=== PATIENT | male | born 1945 | race Caucasian/White ===

== ENCOUNTER → 2020-05-15 13:09 | Outpatient (BNVA) | payer MEDICARE, SELFPAY | PROVIDERS: PCP Internal Medicine; Referring Provider Internal Medicine; Visit Provider Internal Medicine Cardiovascular Disease | DX: I48.0 Paroxysmal atrial fibrillation (principal); I25.10 Atherosclerotic heart disease of native coronary artery without angina pectoris; E78.5 Hyperlipidemia, unspecified; Z79.01 Long term (current) use of anticoagulants; Z79.899 Other long term (current) drug therapy | CPT/HCPCS: 93005; 99212 ==

== ENCOUNTER → 2020-05-22 14:46 | Outpatient (BNVA) | payer MEDICARE, SELFPAY | PROVIDERS: PCP Internal Medicine; Referring Provider Internal Medicine; Visit Provider Internal Medicine Cardiovascular Disease | DX: Z03.89 Encounter for observation for other suspected diseases and conditions ruled out (principal) | CPT/HCPCS: 99211 ==

== ENCOUNTER 2020-07-24 09:39 | Outpatient (REF) | payer MEDICARE, SELFPAY ==
[2020-07-24 10:13] LABS: MANUAL DIFF FLAG NO
[2020-07-24 10:28] LABS: Basophils Percent Auto 0.4 % (0-2); Eosinophils Absolute Auto 0.1 X10*3/uL (0.0-0.4); Eosinophils Percent Auto 1.8 % (0-4); Hematocrit 39.2 % (42-52); Hemoglobin 13.2 g/dl (14.0-18.0); Imm Gran Abs Auto 0.01 X10*3/uL (0.00-0.03); Imm Gran Pct Auto 0.2 % (0.0-0.4); Lymphocytes Absolute Auto 1.4 X10*3/uL (1.2-4.9); Lymphocytes Percent Auto 28.5 % (20-40); Mean Corpuscular HGB Conc 33.7 g/dl (31.0-36.0); Mean Corpuscular Hemoglobin 31.2 pg (27.0-33.0); Mean Corpuscular Volume 92.7 fL (80-98); Mean Platelet Volume 10.9 fL (9.4-12.4); Monocytes Absolute Auto 0.5 X10*3/uL (0.1-1.2); Monocytes Percent Auto 10.8 % (2-11); Neutrophils Absolute Auto 2.9 X10*3/uL (2.0-8.3); Neutrophils Percent Auto 58.3 % (45-73); Platelet Count 182 X10*3/uL (160-400); Red Blood Count 4.23 X10*6/uL (4.60-5.80); Red Cell Distribution Width 11.6 % (11.0-16.0)
[2020-07-24 10:45] LABS: Alanine Aminotransferase 21 U/L (0-40); Albumin Level 4.1 g/dL (3.5-5.0); Alkaline Phosphatase 74 U/L (39-117); Anion Gap 12 (12-20); Aspartate Amino Transferase 20 U/L (5-37); Bilirubin Total 0.5 mg/dL (0.0-1.0); Blood Urea Nitrogen 17 mg/dL (9-16); Calcium 8.9 mg/dL (8.4-10.2); Carbon Dioxide 30 mmol/L (22-29); Chloride 103 mmol/L (96-108); Cholesterol 162 mg/dL; Estimated Glomerular Filt Rate > 60; Glucose Fasting 86 mg/dL (60-99); Glucose Urine UA NEG (NEG); HDL Cholesterol 66 mg/dL; LDL Cholesterol Calculated 85 mg/dl; Leukocyte Esterase Urine NEG (NEG); Nitrite Urine NEG (NEG); Potassium 4.2 mmol/L (3.3-5.1); Sodium 141 mmol/L (135-145); Specific Gravity - Urine >= 1.030 (1.005-1.025); Total Protein 6.9 g/dL (6.5-8.0); Triglycerides 58 mg/dL; Urine Blood NEG (NEG); Urine Ketones NEG (NEG); Urine Protein NEG (NEG-TRACE)
[2020-07-24 10:48] LABS: Appearance Urine CLEAR; Color Urine YELLOW
[2020-07-24 11:06] LABS: Prostate Specific Antigen 2.24 ng/mL (<0.05-4.0)
[2020-07-24 12:06] LABS: Reflex LDLD? No
== END 2020-07-24 09:40 | disposition home or self-care (01) ==
LOC: HO.LAB 09:39
PROVIDERS: PCP Internal Medicine; Visit Provider Internal Medicine
DX: Z00.00 Encounter for general adult medical examination without abnormal findings (principal); N40.0 Benign prostatic hyperplasia without lower urinary tract symptoms; I10 Essential (primary) hypertension; D64.9 Anemia, unspecified; D70.9 Neutropenia, unspecified; Z86.79 Personal history of other diseases of the circulatory system; Z12.5 Encounter for screening for malignant neoplasm of prostate
CPT/HCPCS: 36415; 80053; 80061; 81003; 84153; 85025

== ENCOUNTER 2020-09-12 08:30 | Emergency (ER) | payer MEDICARE, SELFPAY ==
--- NOTE | ~2020-09-12 | XR_ITS ---
EXAMINATION: XR KNEE, LEFT CLINICAL INFORMATION: Left knee pain. COMPARISON: None TECHNIQUE: Four views of the left knee. FINDINGS: There is orthopedic hardware in the tibia extending beyond the inferior field of view. Hardware is intact. There is no fracture or dislocation or destructive process. No definite suprapatellar effusion. Hoffa's fat pad appears normal. There is extensive chondrocalcinosis involving the medial lateral menisci. No focal joint narrowing or erosive change. XR/XR knee LT 4V IMPRESSION: 1. No fracture, dislocation, or effusion. 2. Chondrocalcinosis medial and lateral menisci. No erosive changes.
[2020-09-12 08:33] VITALS: BP 104/83; PULSE 82; RESP 16; TEMP 36.6; O2SAT 99; BMI 21.6
--- NOTE | 2020-09-12 08:58 | ED.LOWEXIN ---
HPI - Extremity Injury (Lower) General Chief Complaint: Extremity Injury, Lower Stated Complaint: lt knee pain Time Seen by Provider: 09/12/20 08:52 Source: patient Mode of arrival: other (crutches) Limitations: no limitations History of Present Illness HPI Narrative: 74 y/o male with history of paroxysmal afib on Eliquis, HTN, CAD, HLD who presents with 5 days of non-traumatic left knee pain. He reports 5 days ago he started with some inner left knee pain. Cannot recall injury, twisting or giving out episodes. He was able to go up and down a ladder the next day. The following 3 days the pain has gotten worse. He noted some mild swelling on the inside with tenderness to touch. He has been taking Tylenol and using ice with brief improvement. He called his Orthopedist who can see him in 2 days. He has been using crutches because the pain is too severe to walk so he came into the ER for further evaluation. MD complaint: knee injury Type of Injury: unknown Place: home Severity: moderate Relieving factors: cold therapy, immobilization and rest Exacerbating factors: weight bearing, movement and palpation Associated symptoms: swelling and unable to bear weight Other symptoms: none Related Data Home Medications Medication Instructions Recorded Confirmed pravastatin 20 mg tablet 20 mg PO DAILY tab 05/15/20 05/15/20 Previous Rx's Medication Instructions Recorded metoprolol succinate 50 mg 50 mg PO DAILY 90 Days #90 tab 05/07/20 tablet,extended release 24 hr amlodipine 5 mg tablet 5 mg PO DAILY #30 tab 07/05/20 apixaban 5 mg tablet 5 mg PO BID #60 tab 07/05/20 tramadol 50 mg PO Q8H PRN #6 tab 09/12/20 Allergies Allergy/AdvReac Type Severity Reaction Status Date / Time penicillin V Allergy Unknown Unknown Verified 09/12/20 08:36 Penicillins [PENICILLINS] Allergy Unknown UNKNOWN Verified 09/12/20 08:36 Review of Systems Review of Systems: Constitutional: No Fever, No Chills Musculoskeletal: + joint pain, No Myalgias Skin: No Skin Lesions, No rash Neuro: No Weakness, No Numbness Heme/Lymph: No Bruising, No Lymphadenopathy PMFSH Past Medical History Attestation statement: The following information was validated with the patient. Medical History CAD (coronary artery disease) Hyperlipidemia Paroxysmal atrial fibrillation Surgical History Status post percutaneous transluminal coronary angioplasty Social History Social History Advance Directives: No Advance Directives Information Provided: No Physical Exam Vital Signs: Vital Signs: Last Vital Signs Temp 97.9 F 09/12/20 08:33 Pulse 82 09/12/20 08:33 Resp 16 09/12/20 08:33 BP 104/83 09/12/20 08:33 Pulse Ox 99 09/12/20 08:33 Body Mass Index 21.6 Appearance: Alert. Oriented X3. No acute distress. HEENT: normal inspection CVS: Normal heart rate and rhythm. Pulses normal. Respiratory: No respiratory distress. Skin: Skin warm and dry. Normal skin color. Normal skin turgor. No rashes. Extremities: left knee with mild medial knee swelling, tenderness along medial joint line, no warmth, erythema. No calf tenderness. full ROM of knee. NV intact distally. Neuro: Oriented X 3. No motor deficit. No sensory deficit. Unable to assess gait to due to pain Course Course Course Narrative: 74 y/o male presenting with 5 days of non-traumatic left knee pain. No evidence of infection or acute gout on examination. Will get XR to assess. Reevaluation(s) Reevaluation #1: XR showing chondrocalcinosis medial and lateral menisci. No erosive changes. Will treat with rest, ice, pain control and follow up with Orthopedics in 2 days as scheduled. Patient is stable for d/c. Critical Care Time Critical Care Time Critical Care Time: No Discharge Plan Discharge Clinical Impression: Knee pain, left Qualifiers: Chronicity: acute Qualified Code(s): M25.562 - Pain in left knee Patient Disposition: Home, Self-Care Instructions: Knee Pain (ED) Additional Instructions: Your knee x-ray today showed calcium deposits on your meniscus cartilage inside of your knee. Recommend following up with Orthopedics as scheduled on Thursday. Wear the FELA bandage as needed for comfort. Take Tylenol 1,000 mg every 6 hours as needed for pain. Take prescribed Tramadol as directed. Do not drive after taking this, it can make you drowsy. Use ice and elevated your leg when able. You may bear weight as tolerated; use crutches as needed. If you develop worsening pain or any other concerning symptom come back to the ER for further evaluation. Prescriptions: New tramadol 50 mg tablet 50 mg PO Q8H PRN (Reason: pain) Qty: 6 RF: 0 No Action metoprolol succinate [Toprol XL] 50 mg tablet extended release 24 hr 50 mg PO DAILY 90 Days Qty: 90 RF: 1 apixaban [Eliquis] 5 mg tablet 5 mg PO BID Qty: 60 RF: 5 amlodipine 5 mg tablet 5 mg PO DAILY Qty: 30 RF: 5 pravastatin 20 mg tablet 20 mg PO DAILY RF: 0 Referrals: Romaine Castro MD [Physician] - 2 days (knee pain)
== END 2020-09-12 09:55 | disposition home or self-care (01) ==
PROVIDERS: Emergency Provider Emergency Medicine; PCP Internal Medicine
DX: M25.562 Pain in left knee (principal); I25.10 Atherosclerotic heart disease of native coronary artery without angina pectoris; I48.91 Unspecified atrial fibrillation; I10 Essential (primary) hypertension; Z79.01 Long term (current) use of anticoagulants; Z79.899 Other long term (current) drug therapy
CPT/HCPCS: 73564; 99283

== ENCOUNTER 2020-09-14 08:14 | Outpatient (REF) | payer MEDICARE, SELFPAY ==
--- NOTE | ~2020-09-14 | XR_ITS ---
EXAMINATION: AP STANDING VIEWS OF BOTH KNEES AND SUNRISE VIEW OF THE LEFT KNEE CLINICAL INFORMATION: Pain. COMPARISON: Left knee study of 09/12/2020. TECHNIQUE: AP standing views of both knees and sunrise view of the left knee. FINDINGS: There is bilateral chondrocalcinosis present. There appears be some mild narrowing of the medial joint space compartment of the left knee. Intramedullary hardware is seen within the proximal left femur with distal tip not being included on imaging. No definite acute fracture is appreciated. [place] view demonstrates some mild narrowing of the lateral facet with spurring about the lateral facet. XR/XR knee standing BI IMPRESSION: Bilateral prominent chondrocalcinosis without definite fracture identified. Mild degenerative narrowing medial joint space compartment of the left knee. Mild narrowing with spurring about the lateral facet of the patella.
--- NOTE | ~2020-09-14 | XR_ITS ---
EXAMINATION: AP STANDING VIEWS OF BOTH KNEES AND SUNRISE VIEW OF THE LEFT KNEE CLINICAL INFORMATION: Pain. COMPARISON: Left knee study of 09/12/2020. TECHNIQUE: AP standing views of both knees and sunrise view of the left knee. FINDINGS: There is bilateral chondrocalcinosis present. There appears be some mild narrowing of the medial joint space compartment of the left knee. Intramedullary hardware is seen within the proximal left femur with distal tip not being included on imaging. No definite acute fracture is appreciated. [place] view demonstrates some mild narrowing of the lateral facet with spurring about the lateral facet. XR/XR knee RT 2V IMPRESSION: Bilateral prominent chondrocalcinosis without definite fracture identified. Mild degenerative narrowing medial joint space compartment of the left knee. Mild narrowing with spurring about the lateral facet of the patella.
== END 2020-09-14 08:15 | disposition home or self-care (01) ==
LOC: HO.HOSX 08:14
PROVIDERS: Visit Provider Orthopaedic Surgery
DX: M25.562 Pain in left knee (principal); M11.20 Other chondrocalcinosis, unspecified site; I25.10 Atherosclerotic heart disease of native coronary artery without angina pectoris; I10 Essential (primary) hypertension; I48.0 Paroxysmal atrial fibrillation; E78.5 Hyperlipidemia, unspecified; Z88.0 Allergy status to penicillin; Z98.61 Coronary angioplasty status
CPT/HCPCS: 20610; 73560; 73565; 99212; J1100

== ENCOUNTER → 2020-10-12 09:16 | Outpatient (BNVA) | payer MEDICARE, SELFPAY | PROVIDERS: PCP Internal Medicine; Visit Provider Orthopaedic Surgery | DX: M11.20 Other chondrocalcinosis, unspecified site (principal) | CPT/HCPCS: 20610; 99212; J1100 ==

== ENCOUNTER → 2020-10-25 12:18 | Outpatient (BNVA) | payer MEDICARE, SELFPAY | PROVIDERS: PCP Internal Medicine; Visit Provider Orthopaedic Surgery | DX: M11.20 Other chondrocalcinosis, unspecified site (principal); M25.462 Effusion, left knee | CPT/HCPCS: 20610; 99212 ==

== ENCOUNTER → 2020-11-08 12:43 | Outpatient (BNVA) | payer MEDICARE, SELFPAY | PROVIDERS: PCP Internal Medicine; Visit Provider Internal Medicine Cardiovascular Disease | DX: I48.0 Paroxysmal atrial fibrillation (principal); I25.10 Atherosclerotic heart disease of native coronary artery without angina pectoris | CPT/HCPCS: 99212 ==

== ENCOUNTER → 2021-01-21 08:19 | Outpatient (BNVA) | payer MEDICARE, SELFPAY | PROVIDERS: PCP Internal Medicine; Visit Provider Orthopaedic Surgery | DX: M25.562 Pain in left knee (principal); I25.10 Atherosclerotic heart disease of native coronary artery without angina pectoris; I48.0 Paroxysmal atrial fibrillation; I10 Essential (primary) hypertension; E78.5 Hyperlipidemia, unspecified; Z88.0 Allergy status to penicillin; Z95.5 Presence of coronary angioplasty implant and graft | CPT/HCPCS: 99212 ==

== ENCOUNTER 2021-01-25 10:35 | Outpatient (REF) | payer MEDICARE, SELFPAY ==
[2021-01-25 10:39] LABS: MANUAL DIFF FLAG NO
[2021-01-25 10:53] LABS: Basophils Percent Auto 0.5 % (0-2); Eosinophils Absolute Auto 0.1 X10*3/uL (0.0-0.4); Eosinophils Percent Auto 2.4 % (0-4); Hematocrit 38.9 % (42-52); Hemoglobin 12.9 g/dl (14.0-18.0); Imm Gran Abs Auto 0.01 X10*3/uL (0.00-0.03); Imm Gran Pct Auto 0.2 % (0.0-0.4); Lymphocytes Absolute Auto 1.6 X10*3/uL (1.2-4.9); Lymphocytes Percent Auto 37.8 % (20-40); Mean Corpuscular HGB Conc 33.2 g/dl (31.0-36.0); Mean Corpuscular Hemoglobin 30.9 pg (27.0-33.0); Mean Corpuscular Volume 93.1 fL (80-98); Mean Platelet Volume 12.1 fL (9.4-12.4); Monocytes Absolute Auto 0.6 X10*3/uL (0.1-1.2); Monocytes Percent Auto 14.7 % (2-11); Neutrophils Absolute Auto 1.9 X10*3/uL (2.0-8.3); Neutrophils Percent Auto 44.4 % (45-73); Platelet Count 180 X10*3/uL (160-400); Red Blood Count 4.18 X10*6/uL (4.60-5.80); Red Cell Distribution Width 12.3 % (11.0-16.0); White Blood Count 4.2 X10*3/uL (4.8-10.8)
[2021-01-25 11:01] LABS: Glucose Urine UA NEG (NEG); Leukocyte Esterase Urine NEG (NEG); Nitrite Urine NEG (NEG); PH 6.5 (5.0-8.0); Urine Blood NEG (NEG); Urine Ketones NEG (NEG); Urine Protein NEG (NEG-TRACE)
[2021-01-25 11:04] LABS: Appearance Urine CLEAR; Color Urine YELLOW
[2021-01-25 11:38] LABS: Alanine Aminotransferase 26 U/L (0-40); Albumin Level 4.2 g/dL (3.5-5.0); Alkaline Phosphatase 71 U/L (39-117); Anion Gap 12 (12-20); Aspartate Amino Transferase 22 U/L (5-37); Bilirubin Total 0.6 mg/dL (0.0-1.0); Blood Urea Nitrogen 15 mg/dL (9-16); Calcium 9.4 mg/dL (8.4-10.2); Carbon Dioxide 29 mmol/L (22-29); Chloride 103 mmol/L (96-108); Cholesterol 185 mg/dL; Estimated Glomerular Filt Rate > 60; Glucose Fasting 91 mg/dL (60-99); HDL Cholesterol 62 mg/dL; LDL Cholesterol Calculated 111 mg/dl; Potassium 4.1 mmol/L (3.3-5.1); Sodium 140 mmol/L (135-145); Triglycerides 63 mg/dL
[2021-01-25 11:56] LABS: Reflex LDLD? No
[2021-01-25 12:00] LABS: PSA,Total (Free>4and<10) 2.77 ng/mL (0.00-4.00)
== END 2021-01-25 10:36 | disposition home or self-care (01) ==
LOC: HO.LNP 10:35
PROVIDERS: Visit Provider Internal Medicine
DX: Z00.00 Encounter for general adult medical examination without abnormal findings (principal); Z12.5 Encounter for screening for malignant neoplasm of prostate; N40.0 Benign prostatic hyperplasia without lower urinary tract symptoms; D70.9 Neutropenia, unspecified; I10 Essential (primary) hypertension
CPT/HCPCS: 80053; 80061; 81003; 84153; 85025

== ENCOUNTER 2021-04-11 10:46 | Outpatient (REF) | payer MEDICARE, SELFPAY ==
[2021-04-11 10:49] LABS: MANUAL DIFF FLAG NO
[2021-04-11 11:42] LABS: Basophils Percent Auto 0.7 % (0-2); Eosinophils Absolute Auto 0.2 X10*3/uL (0.0-0.4); Eosinophils Percent Auto 4.7 % (0-4); Hematocrit 37.9 % (42-52); Hemoglobin 12.7 g/dl (14.0-18.0); Imm Gran Abs Auto 0.01 X10*3/uL (0.00-0.03); Imm Gran Pct Auto 0.2 % (0.0-0.4); Lymphocytes Absolute Auto 1.2 X10*3/uL (1.2-4.9); Lymphocytes Percent Auto 26.4 % (20-40); Mean Corpuscular HGB Conc 33.5 g/dl (31.0-36.0); Mean Corpuscular Hemoglobin 31.1 pg (27.0-33.0); Mean Corpuscular Volume 92.9 fL (80-98); Mean Platelet Volume 11.5 fL (9.4-12.4); Monocytes Absolute Auto 0.8 X10*3/uL (0.1-1.2); Monocytes Percent Auto 17.6 % (2-11); Neutrophils Absolute Auto 2.3 X10*3/uL (2.0-8.3); Neutrophils Percent Auto 50.4 % (45-73); Platelet Count 193 X10*3/uL (160-400); Red Blood Count 4.08 X10*6/uL (4.60-5.80); Red Cell Distribution Width 12.2 % (11.0-16.0); White Blood Count 4.5 X10*3/uL (4.8-10.8)
[2021-04-11 11:54] LABS: Appearance Urine CLEAR; Color Urine YELLOW; Glucose Urine UA NEG (NEG); Leukocyte Esterase Urine NEG (NEG); Nitrite Urine NEG (NEG); Specific Gravity - Urine 1.025 (1.005-1.025); Urine Blood NEG (NEG); Urine Ketones NEG (NEG); Urine Protein NEG (NEG-TRACE)
[2021-04-11 11:58] LABS: Alanine Aminotransferase 21 U/L (0-40); Alkaline Phosphatase 72 U/L (39-117); Anion Gap 9 (12-20); Aspartate Amino Transferase 20 U/L (5-37); Bilirubin Total 0.4 mg/dL (0.0-1.0); Blood Urea Nitrogen 13 mg/dL (9-16); Calcium 9.2 mg/dL (8.4-10.2); Carbon Dioxide 31 mmol/L (22-29); Chloride 105 mmol/L (96-108); Cholesterol 157 mg/dL; Estimated Glomerular Filt Rate > 60; Glucose Fasting 98 mg/dL (60-99); HDL Cholesterol 61 mg/dL; LDL Cholesterol Calculated 88 mg/dl; Potassium 4.2 mmol/L (3.3-5.1); Reflex LDLD? No; Sodium 141 mmol/L (135-145); Total Protein 6.7 g/dL (6.5-8.0); Triglycerides 42 mg/dL
[2021-04-11 12:13] LABS: PSA,Total (Free>4and<10) 2.85 ng/mL (0.00-4.00)
== END 2021-04-11 10:47 | disposition home or self-care (01) ==
LOC: HO.LNP 10:46
PROVIDERS: Visit Provider Internal Medicine
DX: Z00.00 Encounter for general adult medical examination without abnormal findings (principal); Z12.5 Encounter for screening for malignant neoplasm of prostate; D64.9 Anemia, unspecified; I25.10 Atherosclerotic heart disease of native coronary artery without angina pectoris; N40.0 Benign prostatic hyperplasia without lower urinary tract symptoms; D70.9 Neutropenia, unspecified; I10 Essential (primary) hypertension
CPT/HCPCS: 80053; 80061; 81003; 84153; 85025

== ENCOUNTER → 2021-05-08 13:49 | Outpatient (REF) | payer MEDICARE, SELFPAY ==
--- NOTE | 2021-05-08 13:54 | CA_ITS ---
INDICATIONS: Paroxysmal Atrial Fibrillation HT: 5'8 WT: 140 BSA: 1.76 m2 BP: 137/72 M-MODE/2D MEASUREMENTS: LVd: 4.43 cm LVs: 2.34 cm IVSd: 0.8 cm IVSs: LVPWd: 0.8 cm LVPWs: ASC.AORTA: 2.7 cm RVd: AO root: 3.0 cm LA: 3.1 cm AV Cusp: LVOT: 2.0 cm EF% 78% TAPSE: 3.25 cm OTHER: Effusion: Thrombus: Wall Motion: RVSP: 28 mmHg Mitral E/A: ____/ = 1.0 E Med. 13.5 E Lat, 8.6 AV CUSPS Trileaflet: DOPPLER MEASUREMENTS: AORTIC PPG 3 mmHg MFG 12 mmHg VALVE AREA: 2.36 cm2 TRICUSPID: PPG 25 mmHg RA Vol IVC: 1.88 cm LA Vol. 24.8 ml/m2 Study quality: Fair Rhythm: Normal sinus rhythm Findings: Left ventricle: Left ventricle is of normal size with normal wall thickness and normal systolic function. Overall left ventricular ejection fraction is about 60-65%. There are no clear regional wall motion abnormality is noted. There is E to a reversal of mitral inflow suggestive of LV relaxation abnormality. Filling pressures are within normal limits consistent with grade 1 diastolic dysfunction. There is evidence of LV false tendon which is a normal variant Atria: Biatrial chamber size within normal limits. There is evidence of lipomatous hypertrophy of interatrial septum with no evidence of PFO Right ventricle: Right ventricle is of normal size with normal systolic function. Cardiac valves: Aortic valve is mildly fibrocalcific and trileaflet. Aortic valve mildly thickened. There is no significant aortic regurgitation aortic stenosis Mitral valve is of normal thickness. There is mild mitral calcification noted. There is trace mitral regurgitation noted. There is no evidence of mitral stenosis Pulmonic valve not well visualized Tricuspid valve is of normal morphology with trace tricuspid regurgitation with normal calculated right ventricular systolic pressure. RV systolic pressure measured at 25 mmHg Great vessels: Ascending and transverse aorta of normal size. There is no significant atherosclerosis Pulmonary arteries not well visualized IVC of normal size with normal collapsibility consistent with normal right atrial pressures Pericardium: Pericardium appears to be within normal limits Conclusion: 1. Normal LV systolic function with grade 1 diastolic dysfunction 2. Mild fibrocalcific aortic valve changes noted and mild mitral annular calcification noted with normal cardiac valvular Doppler 3. Normal RV systolic pressure 4. No gross pericardial effusion MTDD
== END ==
LOC: HO.CARD 13:49
PROVIDERS: Visit Provider Internal Medicine Cardiovascular Disease
DX: I48.0 Paroxysmal atrial fibrillation (principal)
CPT/HCPCS: 93306

== ENCOUNTER → 2021-05-13 13:06 | Outpatient (BNVA) | payer MEDICARE, SELFPAY | PROVIDERS: PCP Internal Medicine; Referring Provider Internal Medicine; Visit Provider Internal Medicine Cardiovascular Disease | DX: I25.10 Atherosclerotic heart disease of native coronary artery without angina pectoris (principal); I48.0 Paroxysmal atrial fibrillation; R06.02 Shortness of breath | CPT/HCPCS: 93005; 99212 ==

== ENCOUNTER → 2021-06-04 08:23 | Outpatient (REF) | payer MEDICARE, SELFPAY ==
--- NOTE | ~2021-06-04 | NM_ITS ---
Exercise Myocardial perfusion study Indication: Chest pain to evaluate for myocardial Technique: The patient was brought in for an exercise perfusion study on 06/04/2021. Patient performed exercise as per Demar protocol and was injected 25 mCi of sestamibi was given intravenously one target HR was achieved. Images were obtained using the SPECT gamma camera interlaced with the gating device. Images were obtained in supine position. Resting perfusion study was performed on 06/05/2021. Patient was administered 25 mCi of sestamibi intravenously at rest. Images were then obtained in supine position. Images obtained with and without CT attenuation. Total DLP 71 mGy-cm. Images were processed with the software and compared side to side in short axis, horizontal long axis and vertical long axis views. Findings: The stress perfusion study showed non attenuated images show thinning and minimally reduced uptake in the basal and mid inferior and basal inferoseptal wall of the LV myocardium. Remainder of the LV myocardium normally perfused. Attenuation corrected images minimally thinning of the apex of the LV myocardium.. The gated study shows normal LV systolic function with calculated LVEF of 73%. LV cavity is normal in size. The gated study shows normal systolic wall thickening and contraction of all segments. There is no transient ischemic dilation. Resting study shows no change in perfusion pattern compared to stress perfusion study. Gating at rest reveals normal systolic wall motion with ejection fraction at 69%. The findings are consistent with normal myocardial perfusion. NM/NM cardiolite stress test Impression: 1. Normal myocardial perfusion 2. Gated LVEF is 69% 3. Transient ischemic dilatation not present Stress EKG is positive for ischemia
--- NOTE | 2021-06-04 08:26 | CA_ITS ---
Acquisition Time: 2021-06-04 08:41:11 Total Exercise Time: 00:06:00 Test Indications: SOB Medications: Protocol: SERA Max HR: 127 BPM 87% of Pred: 145 BPM Max BP: 188/066 mmHG Max Work Load: 7.0 METS Exercise stress test wit exercise 6 min of Sera protocol, without anginal symptoms, with isolated PVC, with normotensive response to exercise, with EKG changes meeting criteria for ischemia: horizontal ST depression 2 mm inferiorly, V4-5, 1 mmm V6, ST elevation 1.5mmm aVR with gradual improvement back to baseline. Nuclear images pending. Test reviewed with Dr Murdock. Referred By: Jens Murdock Overread By: TITUS NAVARRO
== END ==
LOC: HO.CARD 08:23
PROVIDERS: PCP Internal Medicine; Visit Provider Internal Medicine Cardiovascular Disease
DX: R07.9 Chest pain, unspecified (principal); I25.10 Atherosclerotic heart disease of native coronary artery without angina pectoris; R06.02 Shortness of breath
CPT/HCPCS: 78452; 93017; A9500

== ENCOUNTER → 2021-06-12 13:34 | Outpatient (BNVA) | payer MEDICARE, SELFPAY | PROVIDERS: PCP Internal Medicine; Referring Provider Internal Medicine; Visit Provider Nurse Practitioner Family | DX: R06.02 Shortness of breath (principal); R94.39 Abnormal result of other cardiovascular function study; I25.10 Atherosclerotic heart disease of native coronary artery without angina pectoris; I48.0 Paroxysmal atrial fibrillation; I10 Essential (primary) hypertension; E78.5 Hyperlipidemia, unspecified | CPT/HCPCS: 99212 ==

== ENCOUNTER 2021-07-04 10:31 | Outpatient (REF) | payer MEDICARE, SELFPAY ==
[2021-07-04 11:33] LABS: Alanine Aminotransferase 29 U/L (0-40); Alkaline Phosphatase 71 U/L (39-117); Aspartate Amino Transferase 20 U/L (5-37); Bilirubin Direct 0.2 mg/dL (0.0-0.5); Bilirubin Total 0.4 mg/dL (0.0-1.0); Cholesterol 156 mg/dL; HDL Cholesterol 64 mg/dL; LDL Cholesterol Calculated 82 mg/dl; Total Protein 6.8 g/dL (6.5-8.0); Triglycerides 53 mg/dL
[2021-07-04 11:58] LABS: Reflex LDLD? No
== END 2021-07-04 10:32 | disposition home or self-care (01) ==
LOC: HO.LNP 10:31
PROVIDERS: Visit Provider Internal Medicine
DX: I25.10 Atherosclerotic heart disease of native coronary artery without angina pectoris (principal)
CPT/HCPCS: 80061; 80076

== ENCOUNTER → 2021-08-14 13:24 | Outpatient (BNVA) | payer MEDICARE, SELFPAY | PROVIDERS: PCP Internal Medicine; Referring Provider Internal Medicine; Visit Provider Nurse Practitioner Family | DX: I25.10 Atherosclerotic heart disease of native coronary artery without angina pectoris (principal); I48.0 Paroxysmal atrial fibrillation; R06.02 Shortness of breath; R53.83 Other fatigue; I10 Essential (primary) hypertension; E78.5 Hyperlipidemia, unspecified; Z95.5 Presence of coronary angioplasty implant and graft; Z88.1 Allergy status to other antibiotic agents; Z88.0 Allergy status to penicillin; Z79.899 Other long term (current) drug therapy | CPT/HCPCS: 99212 ==

== ENCOUNTER 2021-08-20 07:42 | Outpatient (REF) | payer MEDICARE, SELFPAY ==
[2021-08-20 09:13] LABS: Anion Gap 12 (12-20); Blood Urea Nitrogen 17 mg/dL (9-16); Calcium 9.5 mg/dL (8.4-10.2); Carbon Dioxide 31 mmol/L (22-29); Chloride 102 mmol/L (96-108); Estimated Glomerular Filt Rate > 60; Glucose Random 93 mg/dL (60-115); Potassium 4.3 mmol/L (3.3-5.1); Sodium 141 mmol/L (135-145)
== END 2021-08-20 07:43 | disposition home or self-care (01) ==
LOC: HO.LAB 07:42
PROVIDERS: PCP Internal Medicine; Visit Provider Nurse Practitioner Family
DX: R94.39 Abnormal result of other cardiovascular function study (principal)
CPT/HCPCS: 36415; 80048

== ENCOUNTER → 2021-09-02 09:27 | Outpatient (BNVA) | payer MEDICARE, SELFPAY | PROVIDERS: PCP Internal Medicine; Visit Provider Internal Medicine Cardiovascular Disease | DX: I25.10 Atherosclerotic heart disease of native coronary artery without angina pectoris (principal); I48.0 Paroxysmal atrial fibrillation | CPT/HCPCS: 99212 ==

== ENCOUNTER 2021-10-15 10:27 | Outpatient (REF) | payer MEDICARE, SELFPAY ==
[2021-10-15 10:30] LABS: MANUAL DIFF FLAG NO
[2021-10-15 11:26] LABS: Basophils Percent Auto 0.7 % (0-2); Eosinophils Absolute Auto 0.1 X10*3/uL (0.0-0.4); Eosinophils Percent Auto 2.4 % (0-4); Hemoglobin 12.7 g/dl (14.0-18.0); Imm Gran Abs Auto 0.01 X10*3/uL (0.00-0.03); Imm Gran Pct Auto 0.2 % (0.0-0.4); Lymphocytes Absolute Auto 1.4 X10*3/uL (1.2-4.9); Lymphocytes Percent Auto 33.4 % (20-40); Mean Corpuscular HGB Conc 32.6 g/dl (31.0-36.0); Mean Corpuscular Hemoglobin 30.5 pg (27.0-33.0); Mean Corpuscular Volume 93.5 fL (80.0-98.0); Mean Platelet Volume 11.7 fL (9.4-12.4); Monocytes Absolute Auto 0.6 X10*3/uL (0.1-1.2); Monocytes Percent Auto 14.1 % (2-11); Neutrophils Percent Auto 49.2 % (45-73); Platelet Count 184 X10*3/uL (160-400); Red Blood Count 4.17 X10*6/uL (4.60-5.80); Red Cell Distribution Width 12.5 % (11.0-16.0); White Blood Count 4.1 X10*3/uL (4.8-10.8)
[2021-10-15 11:28] LABS: Iron 119 mcg/dL (45-160); Percent Iron Saturation 46 % (15-50); Total Iron Binding Capacity 260 mcg/dL (228-428); Unsaturated Iron Binding 141 ug/dL
== END 2021-10-15 10:28 | disposition home or self-care (01) ==
LOC: HO.LNP 10:27
PROVIDERS: Visit Provider Internal Medicine
DX: D70.9 Neutropenia, unspecified (principal)
CPT/HCPCS: 83540; 85025

== ENCOUNTER → 2022-02-04 10:49 | Outpatient (BNVA) | payer MEDICARE, SELFPAY | PROVIDERS: PCP Internal Medicine; Referring Provider Internal Medicine; Visit Provider Internal Medicine Cardiovascular Disease | DX: I25.10 Atherosclerotic heart disease of native coronary artery without angina pectoris (principal); I48.0 Paroxysmal atrial fibrillation | CPT/HCPCS: 93005; 99212 ==

== ENCOUNTER 2022-04-14 10:48 | Outpatient (REF) | payer MEDICARE, SELFPAY ==
[2022-04-14 10:53] LABS: MANUAL DIFF FLAG NO
[2022-04-14 11:10] LABS: Basophils Percent Auto 0.7 % (0-2); Eosinophils Absolute Auto 0.1 X10*3/uL (0.0-0.4); Eosinophils Percent Auto 2.7 % (0-4); Hematocrit 38.4 % (42.0-52.0); Imm Gran Abs Auto 0.01 X10*3/uL (0.00-0.03); Imm Gran Pct Auto 0.2 % (0.0-0.4); Lymphocytes Absolute Auto 1.6 X10*3/uL (1.2-4.9); Lymphocytes Percent Auto 34.4 % (20-40); Mean Corpuscular HGB Conc 33.9 g/dl (31.0-36.0); Mean Corpuscular Hemoglobin 31.3 pg (27.0-33.0); Mean Corpuscular Volume 92.3 fL (80.0-98.0); Mean Platelet Volume 11.6 fL (9.4-12.4); Monocytes Absolute Auto 0.6 X10*3/uL (0.1-1.2); Monocytes Percent Auto 12.9 % (2-11); Neutrophils Absolute Auto 2.2 x10*3/uL (2.0-8.3); Neutrophils Percent Auto 49.1 % (45-73); Platelet Count 199 X10*3/uL (160-400); Red Blood Count 4.16 X10*6/uL (4.60-5.80); White Blood Count 4.5 X10*3/uL (4.8-10.8)
[2022-04-14 11:11] LABS: Bacteria Urine None Seen (None Seen); Hyaline Casts Urine 0-2 /LPF (0-2); RBC Urine 0-2 /HPF (0-2); Squamous Epithelial Cell Urine 0-2 /HPF (0-2); WBC Urine 0-5 /HPF (0-5)
[2022-04-14 11:18] LABS: Appearance Urine Clear; Color Urine Yellow; Glucose Urine UA Negative (Negative); Leukocyte Esterase Urine Negative (Negative); Nitrite Urine Negative (Negative); PH 5.5 (5.0-9.0); Urine Blood Negative (Negative); Urine Ketones Negative (Negative); Urine Protein Negative (Neg-Trace)
[2022-04-14 11:20] LABS: Alanine Aminotransferase 19 U/L (0-40); Albumin Level 4.1 g/dL (3.5-5.0); Alkaline Phosphatase 72 U/L (39-117); Anion Gap 14 (12-20); Aspartate Amino Transferase 21 U/L (5-37); Bilirubin Total 0.6 mg/dL (0.0-1.0); Blood Urea Nitrogen 14 mg/dL (9-16); Calcium 9.2 mg/dL (8.4-10.2); Carbon Dioxide 29 mmol/L (22-29); Chloride 102 mmol/L (96-108); Cholesterol 179 mg/dL; Estimated Glomerular Filt Rate > 60; Glucose Fasting 90 mg/dL (60-99); HDL Cholesterol 69 mg/dL; LDL Cholesterol Calculated 102 mg/dl; Potassium 4.3 mmol/L (3.3-5.1); Sodium 141 mmol/L (135-145); Triglycerides 44 mg/dL
[2022-04-14 11:40] LABS: PSA,Total (Free>4and<10) 2.38 ng/mL (0.00-4.00)
== END 2022-04-14 10:49 | disposition home or self-care (01) ==
LOC: HO.LNP 10:48
PROVIDERS: Visit Provider Internal Medicine
DX: Z00.00 Encounter for general adult medical examination without abnormal findings (principal); Z12.5 Encounter for screening for malignant neoplasm of prostate; N40.0 Benign prostatic hyperplasia without lower urinary tract symptoms; I10 Essential (primary) hypertension; D70.9 Neutropenia, unspecified
CPT/HCPCS: 80053; 80061; 81001; 84153; 85025

== ENCOUNTER 2022-05-24 09:54 | Inpatient (IN) | payer MEDICARE, SELFPAY ==
[2022-05-24] VITALS (7 sets, daily range): BP systolic 140–172; BP diastolic 68–81; PULSE 64–86; RESP 14–20; TEMP 36.1–36.8; O2SAT 97–99; BMI 22.5; BMI 21.9
--- NOTE | ~2022-05-24 | XR_ITS ---
EXAMINATION: XR CHEST CLINICAL INFORMATION: Chest pressure COMPARISON: None TECHNIQUE: PA view of the chest was obtained. FINDINGS: There is no evidence of acute parenchymal disease, pneumothorax, or pleural effusion. Heart normal size. No evidence of pulmonary edema. 9 mm density seen right lung base which may represent nodule or nipple shadow. Repeat study with nipple markers in place would be of help in further evaluation. XR/XR chest 1V IMPRESSION: No significant acute parenchymal disease. Probable right lower lung nipple shadow.
--- NOTE | 2022-05-24 09:55 | ECG_ITS ---
Test Reason : ABRAN PRESSURE Blood Pressure : / mmHG Vent. Rate : 069 BPM Atrial Rate : 069 BPM P-R Int : 172 ms QRS Dur : 100 ms QT Int : 412 ms P-R-T Axes : 071 053 033 degrees QTc Int : 441 ms Normal sinus rhythm Normal ECG When compared with ECG of 20-OCT-2019 09:33, No significant change was found Referred By: Generic ED Physician Electronically Signed By:Driss Allen
[2022-05-24 10:14] LABS: MANUAL DIFF FLAG NO
[2022-05-24 10:16] LABS: Basophils Percent Auto 0.4 % (0-2); Eosinophils Absolute Auto 0.1 X10*3/uL (0.0-0.4); Eosinophils Percent Auto 1.5 % (0-4); Hematocrit 39.9 % (42.0-52.0); Hemoglobin 13.5 g/dl (14.0-18.0); Imm Gran Abs Auto 0.01 X10*3/uL (0.00-0.03); Imm Gran Pct Auto 0.2 % (0.0-0.4); Lymphocytes Absolute Auto 1.2 X10*3/uL (1.2-4.9); Lymphocytes Percent Auto 21.6 % (20-40); Mean Corpuscular HGB Conc 33.8 g/dl (31.0-36.0); Mean Corpuscular Hemoglobin 31.4 pg (27.0-33.0); Mean Corpuscular Volume 92.8 fL (80.0-98.0); Monocytes Absolute Auto 0.6 X10*3/uL (0.1-1.2); Monocytes Percent Auto 10.3 % (2-11); Neutrophils Absolute Auto 3.6 x10*3/uL (2.0-8.3); Platelet Count 189 X10*3/uL (160-400); Red Cell Distribution Width 11.9 % (11.0-16.0); White Blood Count 5.5 X10*3/uL (4.8-10.8)
[2022-05-24 10:48] LABS: Anion Gap 10 (12-20); Blood Urea Nitrogen 14 mg/dL (9-16); Calcium 9.3 mg/dL (8.4-10.2); Carbon Dioxide 28 mmol/L (22-29); Chloride 99 mmol/L (96-108); Creatinine Clr Calc Pharmacy 74.6; Estimated Glomerular Filt Rate > 60; Glucose Random 101 mg/dL (60-115); Potassium 4.1 mmol/L (3.3-5.1); Sodium 133 mmol/L (135-145)
[2022-05-24 11:42] LABS: Troponin-I High Sensitivity < 3.5 ng/L (<3.5-35.0)
--- NOTE | 2022-05-24 13:16 | ED_ITS ---
HPI - Chest Pain General Chief Complaint: Chest Pain <Wanda Dale NP - Last Filed: 05/24/22 13:18> Stated Complaint: chest pressure <Wanda Dale NP - Last Filed: 05/24/22 13:18> Time Seen by Provider: 05/24/22 13:22 <Wanda Dale NP - Last Filed: 05/24/22 13:18> Source: patient <LUIS Espinoza - Last Filed: 05/24/22 14:29> Mode of arrival: ambulatory <LUIS Espinoza - Last Filed: 05/24/22 14:29> Limitations: no limitations <LUIS Espinoza - Last Filed: 05/24/22 14:29> History of Present Illness HPI narrative: 76-year-old male with history of HTN, paroxysmal AFib on Eliquis, HLD, CAD w/ severe 2 vessel disease with positive stress test in May 2021 who presents to the ER for evaluation of chest pressure associated with diaphoresis that occurred this morning. He states he was doing the laundry at 730am when his with breast cancer started feeling ill and vomiting. He states at that time he developed diffuse diaphoresis and then 6-7/10 central chest pressure. It did not radiate. He sat down and the pain and diaphoresis slowly dissipated after 5- 6 minutes. No associated SOB or nausea. He states he has been very stressed with caring for his . He denies any history of angina and is usually very active. <LUIS Espinoza - Last Filed: 05/24/22 14:29> MD complaint: chest heaviness <LUIS Espinoza - Last Filed: 05/24/22 14:29> Pertinent past history: coronary artery disease <LUIS Espinoza - Last Filed: 05/24/22 14:29> Onset (ago): hour(s) <LUIS Espinoza - Last Filed: 05/24/22 14:29> Timing of current episode: now resolved <LUIS Espinoza - Last Filed: 05/24/22 14:29> Prior episodes: No <LUIS Espinoza - Last Filed: 05/24/22 14:29> Onset: during exertion (minimal exertion) <LUIS Espinoza - Last Filed: 05/24/22 14:29> Pain location: substernal <LUIS Espinoza - Last Filed: 05/24/22 14:29> Pain radiation: none <LUIS Espinoza - Last Filed: 05/24/22 14:29> Severity: moderate <LUIS Espinoza - Last Filed: 05/24/22 14:29> Pain scale (0-10): 7 <LUIS Espinoza - Last Filed: 05/24/22 14:29> Quality: heaviness <LUIS Espinoza - Last Filed: 05/24/22 14:29> Relieving factors: rest <LUIS Espinoza - Last Filed: 05/24/22 14:29> Exacerbating factors: nothing <LUIS Espinoza - Last Filed: 05/24/22 14:29> Associated symptoms: diaphoresis <LUIS Espinoza - Last Filed: 05/24/22 14:29> Treatment prior to arrival: other (home amlodipine and eliquis) <LUIS Espinoza - Last Filed: 05/24/22 14:29> Risk Factors Coronary artery disease risk factors: hyperlipidemia and hypertension <LUIS Espinoza - Last Filed: 05/24/22 14:29> Related Data Home Medications: Home Medications Medication Instructions Recorded Confirmed pravastatin 20 mg tablet 20 mg PO DAILY 05/15/20 02/04/22 tamsulosin 0.4 mg capsule 0.4 mg PO DAILY 02/04/22 02/04/22 Previous Rx's Medication Instructions Recorded amlodipine 5 mg tablet 5 mg PO DAILY #30 tabs 01/21/22 apixaban 5 mg tablet (Eliquis) 5 mg PO BID #60 tabs 03/18/22 metoprolol succinate 50 mg 50 mg PO DAILY #90 tabs 04/17/22 tablet,extended release 24 hr <Wanda Dale NP - Last Filed: 05/24/22 13:18> Allergies/Adverse Reactions: Allergies Allergy/AdvReac Type Severity Reaction Status Date / Time Penicillins [PENICILLINS] Allergy Unknown UNKNOWN Verified 05/24/22 09:56 <Wanda Dale NP - Last Filed: 05/24/22 13:18> Review of Systems Review of Systems: Constitutional: No Fever, No Chills, +Diaphoresis ENT/Mouth: No sore throat, No Rhinorrhea, No Swallowing Difficulty Eyes: No vision changes Cardiovascular: + Chest Pain, No SOB, No Orthopnea, No Edema Respiratory: No Cough, No Sputum, No Wheezing, No dyspnea Gastrointestinal: No Nausea, No Vomiting, No Diarrhea, No abdominal Pain Genitourinary: No Dysuria, No Urinary Frequency, No Hematuria Musculoskeletal: No joint pain, No Myalgias Skin: No Skin Lesions, No rash Neuro: No Weakness, No Numbness, No Dizziness, No Headache Psych: + Anxiety/Panic, No Depression Heme/Lymph: No Bruising, No Lymphadenopathy <LUIS Espinoza - Last Filed: 05/24/22 14:29> [facility] Past Medical History Medical History: Medical History CAD (coronary artery disease) Hyperlipidemia Hypertension Paroxysmal atrial fibrillation <Wanda Dale NP - Last Filed: 05/24/22 13:18> Surgical History: Surgical History Status post percutaneous transluminal coronary angioplasty <Wanda Dale NP - Last Filed: 05/24/22 13:18> Family History Family History: Family History Mother No problems noted. Father No problems noted. 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 <Wanda Dale NP - Last Filed: 05/24/22 13:18> Physical Exam Vital Signs: Vital Signs: Last Vital Signs Temp 98.2 F 05/24/22 13:16 Pulse 69 05/24/22 13:53 Resp 14 05/24/22 13:53 BP 152/81 H 05/24/22 13:53 Pulse Ox 99 05/24/22 13:53 O2 Del Method 05/24/22 13:53 BMI result Body Mass Index 21.9 <Wanda Dale NP - Last Filed: 05/24/22 13:18> Vital Signs: Last Vital Signs Temp 98.2 F 05/24/22 13:16 Pulse 69 05/24/22 13:53 Resp 14 05/24/22 13:53 BP 152/81 H 05/24/22 13:53 Pulse Ox 99 05/24/22 13:53 O2 Del Method 05/24/22 13:53 BMI result Body Mass Index 21.9 <LUIS Espinoza - Last Filed: 05/24/22 14:29> Appearance: Alert. Oriented X3. No acute distress. Appears well Eyes: Pupils equal, round and reactive to light. ENT: Pharynx normal. Neck: Normal inspection. Neck supple. CVS: Normal heart rate and rhythm. Pulses normal. Nontender chest wall. Respiratory: No respiratory distress. Breath sounds normal. Abdomen: Soft and nontender. +BS x4 Skin: Skin warm and dry. Normal skin color. Normal skin turgor. No rashes. Extremities: No lower extremity edema. NO calf tenderness Neuro: Oriented X 3. No motor deficit. No sensory deficit. <LUIS Espinoza - Last Filed: 05/24/22 14:29> Course Course Course Narrative: This is a rapid medical exam. Deferred additional HPI/ROS/PE to primary provider. 76 yo male with history of CAD, HTN here with episode chest pressure with diaphoresis at 730am after doing some laundry. Improved with rest. Not associated with SOB/vomiting. Feels well now. Will order labs w/ troponin x2, EKG. VSS. <Wanda Dale NP - Last Filed: 05/24/22 13:18> Reevaluation(s) Reevaluation #1: 76-year-old male with history of paroxysmal AFib on Eliquis, currently in sinus rhythm, multivessel CAD who presents to the ER for evaluation of an episode of chest pressure associated with diaphoresis that occurred this morning. Now resolved with rest. First troponin was negative. EKG without any new ischemic changes. He does have a heart score of 6. He remains chest pain- free at this time Will discuss with Cardiology. Repeat troponin is pending. <LUIS Espinoza - Last Filed: 05/24/22 14:29> Reevaluation #2: Case d/w Dr. Allen - IV heparin ordered in the event he should need a more emergent catheterization. admission to the hospital d/w patient. <LUIS Espinoza - Last Filed: 05/24/22 14:29> Consultations Consultation #1: Cardiology-Dr. Allen - recommend heparin gtt for now <LUIS Espinoza - Last Filed: 05/24/22 14:29> MDM - Chest Pain Medical Records Data Attestation: I reviewed the patient's medical records. <LUIS Espinoza - Last Filed: 05/24/22 14:29> Lab Data Attestation: I reviewed the patient's lab results. <LUIS Espinoza - Last Filed: 05/24/22 14:29> Result diagrams: : 05/24/22 10:07 05/24/22 10:07 <Wanda Dale NP - Last Filed: 05/24/22 13:18> Labs: Lab Results 05/24/22 05/24/22 05/24/22 Range/Units 10:07 10:07 10:07 WBC 5.5 (4.8-10.8) X10*3/uL RBC 4.30 L (4.60-5.80) X10*6/uL Hgb 13.5 L (14.0-18.0) g/dl Hct 39.9 L (42.0-52.0) % MCV 92.8 (80.0-98.0) fL MCH 31.4 (27.0-33.0) pg MCHC 33.8 (31.0-36.0) g/dl RDW 11.9 (11.0-16.0) % Plt Count 189 (160-400) X10*3/uL MPV 11.0 (9.4-12.4) fL Immature Gran % (Auto) 0.2 (0.0-0.4) % Neut % (Auto) 66.0 (45-73) % Lymph % (Auto) 21.6 (20-40) % [place] % (Auto) 10.3 (2-11) % Eos % (Auto) 1.5 (0-4) % Baso % (Auto) 0.4 (0-2) % Lymph # (Auto) 1.2 (1.2-4.9) X10*3/uL [place] # (Auto) 0.6 (0.1-1.2) X10*3/uL Eos # (Auto) 0.1 (0.0-0.4) X10*3/uL Baso # (Auto) 0.0 (0.0-0.2) X10*3/uL Abs Immat Gran (auto) 0.01 (0.00-0.03) X10*3/uL Absolute Neuts (auto) 3.6 (2.0-8.3) x10*3/uL Absolute Nucleated RBC 0.000 (0.0-0.012) X10*3/uL Nucleated RBC % (auto) 0.0 (0.0-0.2) /100WBC Sodium 133 L (135-145) mmol/L Potassium 4.1 (3.3-5.1) mmol/L Chloride 99 (96-108) mmol/L Carbon Dioxide 28 (22-29) mmol/L Anion Gap 10 L (12-20) BUN 14 (9-16) mg/dL Creatinine 0.80 (0.5-1.4) mg/dL Estim Creat Clear Calc 74.6 Estimated GFR > 60 Random Glucose 101 (60-115) mg/dL Calcium 9.3 (8.4-10.2) mg/dL Troponin I High Sens < 3.5 (<3.5-35.0) ng/L <Wanda Dale CONTRACT ADMINISTRATION SPECIALIST - Last Filed: 05/24/22 13:18> Lab Results 05/24/22 05/24/22 05/24/22 Range/Units 10:07 10:07 10:07 WBC 5.5 (4.8-10.8) X10*3/uL RBC 4.30 L (4.60-5.80) X10*6/uL Hgb 13.5 L (14.0-18.0) g/dl Hct 39.9 L (42.0-52.0) % MCV 92.8 (80.0-98.0) fL MCH 31.4 (27.0-33.0) pg MCHC 33.8 (31.0-36.0) g/dl RDW 11.9 (11.0-16.0) % Plt Count 189 (160-400) X10*3/uL MPV 11.0 (9.4-12.4) fL Immature Gran % (Auto) 0.2 (0.0-0.4) % Neut % (Auto) 66.0 (45-73) % Lymph % (Auto) 21.6 (20-40) % [place] % (Auto) 10.3 (2-11) % Eos % (Auto) 1.5 (0-4) % Baso % (Auto) 0.4 (0-2) % Lymph # (Auto) 1.2 (1.2-4.9) X10*3/uL [place] # (Auto) 0.6 (0.1-1.2) X10*3/uL Eos # (Auto) 0.1 (0.0-0.4) X10*3/uL Baso # (Auto) 0.0 (0.0-0.2) X10*3/uL Abs Immat Gran (auto) 0.01 (0.00-0.03) X10*3/uL Absolute Neuts (auto) 3.6 (2.0-8.3) x10*3/uL Absolute Nucleated RBC 0.000 (0.0-0.012) X10*3/uL Nucleated RBC % (auto) 0.0 (0.0-0.2) /100WBC Sodium 133 L (135-145) mmol/L Potassium 4.1 (3.3-5.1) mmol/L Chloride 99 (96-108) mmol/L Carbon Dioxide 28 (22-29) mmol/L Anion Gap 10 L (12-20) BUN 14 (9-16) mg/dL Creatinine 0.80 (0.5-1.4) mg/dL Estim Creat Clear Calc 74.6 Estimated GFR > 60 Random Glucose 101 (60-115) mg/dL Calcium 9.3 (8.4-10.2) mg/dL Troponin I High Sens < 3.5 (<3.5-35.0) ng/L <LUIS Espinoza - Last Filed: 05/24/22 14:29> ECG Data ECG #1: Attestation: I personally reviewed and interpreted this ECG as follows: <LUIS Marie - Last Filed: 05/24/22 14:29> ECG interpretation date: 05/24/22 <LUIS Espinoza - Last Filed: 05/24/22 14:29> ECG interpretation time: 13:38 <LUIS Espinoza - Last Filed: 05/24/22 14:29> Prior ECG tracings: available for review <LUIS Espinoza - Last Filed: 05/24/22 14:29> Interpretation: Normal sinus rhythm, ventricular rate 69 beats per minute, normal RI interval, normal QTC, T-wave inversion in V1 only, no change from prior September 2019 <LUIS Espinoza - Last Filed: 05/24/22 14:29> Scores Heart Score History: -2- highly suspicious <LUIS Espinoza - Last Filed: 05/24/22 14:29> ECG: -0- normal <LUIS Espinoza - Last Filed: 05/24/22 14:29> Age: -2- > or = 65 <LUIS Espinoza - Last Filed: 05/24/22 14:29> Risk factory: -2- 3 or more risk factors or treated atherosclerosis <LUIS Espinoza - Last Filed: 05/24/22 14:29> Troponin: -0- < or = normal limit <LUIS Espinoza Last Filed: 05/24/22 14:29> Score: 6 <LUIS Espinoza - Last Filed: 05/24/22 14:29> Risk: 16.6% <LUIS Espinoza Last Filed: 05/24/22 14:29> Critical Care Time Critical Care Time Critical Care Time: Yes <LUIS Espinoza Last Filed: 05/24/22 14:29> Total Critical Care Time: 35 <LUIS Espinoza - Last Filed: 05/24/22 14:29> Attestation: I have personally provided critical care time exclusive of time spent on separately billable procedures. Time includes review of lab data, radiology results, discussion with consultants, and monitoring for potential decompensation. Intervention performed as documented. <LUIS Espinoza - Last Filed: 05/24/22 14:29> Discharge Plan Discharge Clinical Impression: Chest pain, Unstable angina pectoris <Wanda Dale NP - Last Filed: 05/24/22 13:18> Patient Disposition: Admitted As Inpatient <Wanda Dale NP - Last Filed: 05/24/22 13:18> Prescriptions: No Action amlodipine 5 mg tablet 5 mg PO DAILY Qty: 30 1RF Eliquis 5 mg tablet 5 mg PO BID Qty: 60 5RF metoprolol succinate 50 mg tablet extended release 24 hr 50 mg PO DAILY Qty: 90 3RF pravastatin 20 mg tablet 20 mg PO DAILY tamsulosin 0.4 mg capsule 0.4 mg PO DAILY <Wanda Dale NP - Last Filed: 05/24/22 13:18>
--- OUTSIDE RECORDS SUMMARY | 2022-05-24 13:36 | XMS_ITS | Continuity of Care Document ---
:1945 Author Organization [facility] Address [address] [place] [id number]- Care Team Providers Name Role Phone Jorge Castillo MD Primary Care Physician [phone] Encounter [facility] [place] Date(s): 08/27/21 - 08/27/[address] [id number] Discharge Disposition: A-D/C Home Attending Physician: Jens Murdock MD Admitting Physician: Jens Murdock MD Referring Physician: Jens Murdock MD Allergies, Adverse Reactions, Alerts Substance Reaction Severity Status penicillin ? reaction Active Immunizations Given and Recorded Vaccine Date Status Refusal Reason SARS-CoV-2 (COVID-19) mRNA BNT-162b2 vac 09/18/20 Given SARS-CoV-2 (COVID-19) mRNA BNT-162b2 vac 08/28/20 Given Medications amLODIPine 5 mg oral tablet 5 mg, 1, tablet, By Mouth, Daily, # 30 tablet, Refills 0, Maintenance, 08/27/21 8:29:00 EST, Partialfill upon patient request if the prescription is for a schedule II opioid drug. Start Date: 08/27/21 Status: Orderedatenolol 25 mg oral tablet 25, mg, 1, tablet, By Mouth, Daily, 0, 0, 10/10/06 23:28:52, Print FILOMENA Number, [id number], Constant Indicator Start Date: 10/10/06 Status: OrderedCrestor 5 mg oral tablet 5, mg, 1, tablet, By Mouth, Daily, 0, 0, 10/10/06 23:29:26, Print FILOMENA Number, [id number], ConstantIndicator Start Date: 10/10/06 Status: OrderedEcotrin Tablet 325, mg, By Mouth, Daily, 0, 0, 10/10/06 23:32:23, Print FILOMENA Number, [id number], Constant Indicator Start Date: 10/10/06 Status: OrderedEliquis 5 mg oral tablet 1 tablet = 5 mg, By Mouth, 2 times a day, # 60 tablet, 5 Refills, Maintenance, 08/27/21 8:28:00 EST,Tablet, Partial fill upon patient request if the prescription is for a schedule II opioid drug. Start Date: 08/27/21 Status: Orderedmetoprolol 50 mg oral tablet 50 mg, 1, tablet, By Mouth, 2 times a day, Refills 0, Maintenance, 08/27/21 8:29:00 EST, Partial fill upon patient request if the prescription is for a schedule II opioid drug. Start Date: 08/27/21 Status: OrderedMetoprolol Inj 5 mg, Injection, IV Push Slowly, Once, Routine, 08/27/21 9:06:00 EST, Stop date 08/27/21 9:06:00 EST Start Date: 08/27/21 Stop Date: 08/27/21 Status: Completednitroglycerin 0.4 mg sublingual tablet 0.4 mg, Tablet, Sublingual, Once, Routine, 08/27/21 9:06:00 EST, Stop date 08/27/21 9:06:00 EST Start Date: 08/27/21 Stop Date: 08/27/21 Status: Completedpravastatin 20 mg oral tablet 20 mg, 1, tablet, By Mouth, Daily, # 30 tablet, Refills 0, Maintenance, 08/27/21 8:28:00 EST, Partial fill upon patient request if the prescription is for a schedule II opioid drug. Start Date: 08/27/21 Status: Orderedtamsulosin 0.4 mg oral capsule 0.4 mg, 1, capsule, By Mouth, Daily, # 30 capsule, Refills 0, Maintenance, 08/27/21 8:29:00 EST, Partial fill upon patient request if the prescription is for a schedule II opioid drug. Start Date: 08/27/21 Status: Ordered Vital Signs Most recent to oldest 1 2 3 [Reference Range]: Height 175.20 cm (08/27/21 8:37 AM) Weight 64 kg (08/27/21 8:37 AM) Oxygen Saturation [94-100 %] 99 % (08/27/21 8:16 AM) Pulse Rate [55-90 bpm] 70 bpm 70 bpm (08/27/21 9:06 AM) (08/27/21 8:16 AM) Blood Pressure [90-138/55-84 125/60 mm Hg 125/60 mm Hg 135 /59 mm Hg mm Hg] (08/27/21 9:06 AM) (08/27/21 9:06 AM) (08/27/21 8:16 A M) Respiratory Rate [16-30 16 br/min 18 br/min br/min] (08/27/21 9:11 AM) (08/27/21 8:16 AM) Temperature [96.8-100.4 97.7 DegF DegF] (08/27/21 8:16 AM) Mode of Delivery (Oxygen) Room air (08/27/21 8:16 AM) Blood pressure sites Arm, left (08/27/21 8:16 AM) Temperature Route Oral (08/27/21 8:16 AM) Dry Weight 64 kg (08/27/21 8:37 AM) Weight Obtained Via Patient/family stated (08/27/21 8:37 AM) Dry Weight Obtained Via Patient/family stated (08/27/21 8:37 AM)
[2022-05-24 14:28] LABS: COVID-19 Test Negative (Negative); IDNOW Serial# 55D5AD1C
[2022-05-24 14:30] LABS: INTERNATIONAL NORM RATIO 1.1 (0.9-1.1)
[2022-05-24 14:34] LABS: Partial Thromboplastin Time 40.4 SEC (26.0-36.4)
[2022-05-24 14:55] LABS: Troponin-I High Sensitivity < 3.5 ng/L (<3.5-35.0)
[2022-05-24] MEDS: Aspirin 325 MG TABLET PO (15:03)
--- NOTE | 2022-05-24 15:13 | PM.IMHP ---
History of Present Illness Date of Service: 05/24/22 Attending physician on admission: [facility] Chief Complaint: chest pain This is a 76-year-old male with history of coronary artery disease who presents to the emergency department with chest pain. He was in his usual state of health until this morning when he began having central chest pressure associated with diaphoresis. Pain was localized and did not radiate anywhere. He had no associated shortness of breath, nausea, vomiting. His pain slowly resolved over several minutes after sitting down. Patient has a known history of 2-vessel disease and has been managed conservatively. He has remained asymptomatic until this morning. His cardiac enzymes are negative, EKG with no acute ischemic changes. He does report increase in stress due to illness of his . Previously he was active and walking daily but more recently he has been focused on caring for his . Currently he is not experiencing any chest pain. Review of Systems Review of Systems: Yes all other systems are reviewed and are negative Constitutional: Constitutional: Denies chills and Denies fever(s) Cardiovascular: Cardiovascular: Reports chest pain, Denies palpitations and Denies dyspnea Respiratory: Respiratory: Denies cough, Denies pain on inspiration and Denies dyspnea Gastrointestinal: Gastrointestinal: Denies abdominal pain, Denies nausea and Denies vomiting Endocrine: Endocrine: Denies palpitations [facility] Medical History CAD (coronary artery disease) Hyperlipidemia Hypertension Paroxysmal atrial fibrillation Family History Mother No problems noted. Father No problems noted. 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 Allergies Allergy/AdvReac Type Severity Reaction Status Date / Time Penicillins [PENICILLINS] Allergy Unknown UNKNOWN Verified 05/24/22 09:56 Active Medications: Current Medications Acetaminophen (Acetaminophen 325 Mg Tablet) 650 mg PO Q6H PRN PRN Reason: Pain, Mild (Pain Scale 1-3) Aspirin (Aspirin Enteric Coated 81 Mg Tablet.Dr) 81 mg PO DAILY [facility] Docusate Sodium (Docusate Sodium 100 Mg Capsule) 100 mg PO DAILY PRN PRN Reason: Constipation Heparin Sodium (Porcine) (Heparin Sodium,Porcine 5,000 Unit/Ml Vial) 2,700 unit 40 unit/kg (2700 unit) IVPUSH PROTOCOL BOLUS PRN; Protocol PRN Reason: 40 unit/kg - Heparin Protocol Heparin Sodium (Porcine) (Heparin Sodium,Porcine 5,000 Unit/Ml Vial) 5,400 unit 80 unit/kg (5400 unit) IVPUSH PROTOCOL BOLUS PRN; Protocol PRN Reason: 80 unit/kg - Heparin Protocol Heparin Sodium/Sodium Chloride (Heparin Sodium,Porcine/1/2ns) 25,000 unit in 250 mls @ 0 mls/hr IVCONT .Q0M [facility]; Protocol Ondansetron HCl (Ondansetron Hcl 4 Mg/2 Ml Vial) 4 mg IVPUSH Q8H PRN PRN Reason: Nausea and Vomiting Pharmacy Consult (Consult Rx Perform Med Rec) 1 each MISCELLANE ONCE PRN PRN Reason: Consult order Sodium Chloride (0.9 % Sodium Chloride Flush 3 Ml Syringe) 3 ml IVFLUSH QSHIFT [facility] Home Medications Medication Instructions Recorded Confirmed Last Taken Type pravastatin 20 mg tablet 20 mg PO DAILY 05/15/20 05/24/22 05/24/22 09:00 History tamsulosin 0.4 mg capsule 0.4 mg PO DAILY 02/04/22 05/24/22 05/24/22 09:00 History metoprolol succinate 50 mg 50 mg PO BEDTIME 05/24/22 05/24/22 05/23/22 History tablet,extended release 24 hr Physical Exam Vital Signs and Narrative: Vital Signs: Last Vital Signs Temp 98.2 F 05/24/22 13:16 Pulse 86 05/24/22 15:04 Resp 16 05/24/22 15:04 BP 158/80 H 05/24/22 15:04 Pulse Ox 99 05/24/22 15:04 O2 Del Method 05/24/22 15:04 BMI result Body Mass Index 21.9 Const: General: cooperative, comfortable, alert and awake Nutritional Appearance: average body habitus Orientation/consciousness: patient oriented x3 Chest: Other: no reproducible chest pain with palpation of chest wall Resp: Effort & Inspection: normal respiratory effort and able to speak in complete sentences Auscultation: clear to auscultation bilaterally Cardio: Rate: regular rate Heart sounds: S1 normal heart sound present and S2 normal heart sound present GI: Inspection: No distended Palpation (GI): Soft to palpation and nontender Neuro: General: patient oriented x3 and CN's II-XI intact bilaterally Extrem: Other: able to move all 4 extremities spontaneously General: Yes no pedal edema Results Labs CBC and Chem 7: 05/24/22 10:07 05/24/22 10:07 Labs: Laboratory Results - last 24 hr 05/24/22 05/24/22 05/24/22 10:07 10:07 10:07 MCV 92.8 MCH 31.4 MCHC 33.8 RDW 11.9 Plt Count 189 MPV 11.0 Immature Gran % (Auto) 0.2 Neut % (Auto) 66.0 Lymph % (Auto) 21.6 [place] % (Auto) 10.3 Eos % (Auto) 1.5 Baso % (Auto) 0.4 Lymph # (Auto) 1.2 [place] # (Auto) 0.6 Eos # (Auto) 0.1 Baso # (Auto) 0.0 Abs Immat Gran (auto) 0.01 Absolute Neuts (auto) 3.6 Absolute Nucleated RBC 0.000 Nucleated RBC % (auto) 0.0 PT INR APTT Anion Gap 10 L Estim Creat Clear Calc 74.6 Estimated GFR > 60 Random Glucose 101 Calcium 9.3 Troponin I High Sens < 3.5 COVID-19 (BRETT) COVID-19 Clin Com 05/24/22 05/24/22 05/24/22 13:58 14:08 14:08 MCV MCH MCHC RDW Plt Count MPV Immature Gran % (Auto) Neut % (Auto) Lymph % (Auto) [place] % (Auto) Eos % (Auto) Baso % (Auto) Lymph # (Auto) [place] # (Auto) Eos # (Auto) Baso # (Auto) Abs Immat Gran (auto) Absolute Neuts (auto) Absolute Nucleated RBC Nucleated RBC % (auto) PT 13.0 INR 1.1 APTT 40.4 H Anion Gap Estim Creat Clear Calc Estimated GFR Random Glucose Calcium Troponin I High Sens < 3.5 COVID-19 (BRETT) Negative COVID-19 Clin Com See Note Imaging Radiologist's Impressions: Impressions Chest X-Ray 05/24/22 10:28 IMPRESSION: No significant acute parenchymal disease. Probable right lower lung nipple shadow. Assessment and Plan (1) Unstable angina pectoris: Status: Acute Plan This is a 76 year old male with history of CAD s/p angioplasty in 1991, known 2 vessel CAD being managed conservatively, PAF on Eliquis, HTN Unstable angina known h/o CAD trops negative, EKG unchanged from previous but history concerning cardiology rec heparin drip. last dose of Eliquis at 7am, will start heparin drip tonight aspirin, statin cardiology consult Paroxysmal atrial fibrillation Hold Eliquis Anticoagulation with heparin drip continue metoprolol for rate control HTN continue norvasc, metoprolol DVT prophylaxis-heparin drip Code status-full code Healthcare proxy- Stephanie [phone] Attending-Dr. Golden Patient will likely require 2 midnight stay in the hospital for management of unstable angina on acid taking heparin drip, specialist consultation with Cardiology Quality Stroke Does the patient have a stroke diagnosis?: No VTE Prior VTE?: No VTE Risk Level:: Medical - moderate - high VTE Device Contraindication: N/A - Device Ordered VTE Drug Contraindication: N/A - Med Ordered
--- NOTE | 2022-05-24 15:23 | PC.NURSE ---
Pt resting on stretcher at this time, pt son at bedside. Pt is tearful about being away from at this time. Pt comfort provided. Pt aware of plan for admit
--- NOTE | 2022-05-24 15:51 | PHA.MEDREC ---
Pharmacy Consult ? Medication Reconciliation Pharmacy has completed the medication reconciliation.
[2022-05-24] MEDS: Heparin Sodium,Porcine/1/2NS 25,000 UNIT/250 ML IV.SOLN 7.84 UNIT IVCONT (18:15)
--- NOTE | 2022-05-24 20:06 | PC.NURSE ---
Nurse to nurse report given to Karen. PT aware of plan.
[2022-05-24] MEDS: Metoprolol Succinate ER 50 MG TAB.ER.24H PO (22:52)
[2022-05-24] MEDS: 0.9 % Sodium Chloride Flush 3 ML SYRINGE IVFLUSH (22:54)
[2022-05-25 00:46] LABS: PTT Heparin Drip 88.6 SEC (53-77.9)
[2022-05-25 03:54] VITALS: BP 137/71; PULSE 56; RESP 14; TEMP 36.9; O2SAT 99
[2022-05-25 06:55] LABS: Hematocrit 40.5 % (42.0-52.0); Hemoglobin 13.7 g/dl (14.0-18.0); Mean Corpuscular HGB Conc 33.8 g/dl (31.0-36.0); Mean Corpuscular Volume 91.6 fL (80.0-98.0); Mean Platelet Volume 10.6 fL (9.4-12.4); Platelet Count 175 X10*3/uL (160-400); Red Blood Count 4.42 X10*6/uL (4.60-5.80); Red Cell Distribution Width 11.9 % (11.0-16.0); White Blood Count 4.9 X10*3/uL (4.8-10.8)
[2022-05-25 07:10] LABS: INTERNATIONAL NORM RATIO 1.1 (0.9-1.1); Prothrombin Time 12.3 SEC (10.0-13.1)
[2022-05-25 07:13] LABS: PTT Heparin Drip 80.1 SEC (53-77.9)
[2022-05-25 07:28] VITALS: BP 110/60; PULSE 67; RESP 14; TEMP 36.3; O2SAT 96
[2022-05-25 08:02] LABS: Anion Gap 5 (12-20); Blood Urea Nitrogen 12 mg/dL (9-16); Carbon Dioxide 28 mmol/L (22-29); Chloride 106 mmol/L (96-108); Creatinine Clr Calc Pharmacy 77.3; Estimated Glomerular Filt Rate > 60; Glucose Random 112 mg/dL (60-115); Potassium 4.1 mmol/L (3.3-5.1); Sodium 135 mmol/L (135-145)
[2022-05-25] MEDS: amLODIPine Besylate 5 MG TABLET PO (08:15)
[2022-05-25] MEDS: Aspirin Enteric Coated 81 MG TABLET.DR PO (08:15)
[2022-05-25] MEDS: Pravastatin Sodium 20 MG TABLET PO (08:15)
[2022-05-25] MEDS: Tamsulosin HCL 0.4 MG CAPSULE PO (08:15)
[2022-05-25 10:59] LABS: PTT Heparin Drip 58.9 SEC (53-77.9)
--- NOTE | 2022-05-25 10:59 | HO.PM.IMPN ---
Subjective Subjective Date of Service: 05/25/22 Interval History: seen and examined this morning follow up for Chest pain no further episodes of chest pain no dizziness or sweating Review of Systems Review of Systems: Yes all other systems are reviewed and are negative Constitutional Constitutional: Denies chills and Denies fever(s) Cardiovascular Cardiovascular: Denies chest pain, Denies palpitations and Denies dyspnea Respiratory Respiratory: Denies cough and Denies dyspnea Gastrointestinal Gastrointestinal: Denies abdominal pain, Denies diarrhea and Denies vomiting Endocrine Endocrine: Denies palpitations Physical Exam Vital Signs: Vital Signs: Last Vital Signs Temp 97.4 F 05/25/22 07:28 Pulse 67 05/25/22 07:28 Resp 14 05/25/22 07:28 BP 110/60 05/25/22 07:28 Pulse Ox 96 05/25/22 07:28 O2 Del Method 05/25/22 07:28 BMI result Body Mass Index 21.9 Const: General: cooperative, comfortable, alert and awake Nutritional Appearance: average body habitus Orientation/consciousness: patient oriented x3 Chest: Other: no reproducible chest pain with palpation of chest wall Resp: Effort & Inspection: normal respiratory effort and able to speak in complete sentences Auscultation: clear to auscultation bilaterally Cardio: Rate: regular rate Heart sounds: S1 normal heart sound present and S2 normal heart sound present GI: Inspection: No distended Palpation (GI): Soft to palpation and nontender Neuro: General: patient oriented x3 and CN's II-XI intact bilaterally Extrem: Other: able to move all 4 extremities spontaneously General: Yes no pedal edema Objective Data Active Medications Acetaminophen (Acetaminophen 325 Mg Tablet) 650 mg PO Q6H PRN PRN Reason: Pain, Mild (Pain Scale 1-3) Amlodipine Besylate (Amlodipine Besylate 5 Mg Tablet) 5 mg PO DAILY [facility]; Protocol Last Admin: 05/25/22 08:15 Dose: 5 mg Documented By: COTEMA Aspirin (Aspirin Enteric Coated 81 Mg Tablet.) 81 mg PO DAILY [facility] Last Admin: 05/25/22 08:15 Dose: 81 mg Documented By: GEORGINA Docusate Sodium (Docusate Sodium 100 Mg Capsule) 100 mg PO DAILY PRN PRN Reason: Constipation Heparin Sodium (Porcine) (Heparin Sodium,Porcine 5,000 Unit/Ml Vial) 2,600 unit 40 unit/kg (2600 unit) IVPUSH PROTOCOL BOLUS PRN; Protocol PRN Reason: 40 unit/kg - Heparin Protocol Heparin Sodium (Porcine) (Heparin Sodium,Porcine 5,000 Unit/Ml Vial) 5,200 unit 80 unit/kg (5200 unit) IVPUSH PROTOCOL BOLUS PRN; Protocol PRN Reason: 80 unit/kg - Heparin Protocol Heparin Sodium/Sodium Chloride (Heparin Sodium,Porcine/1/2ns) 25,000 unit in 250 mls @ 0 mls/hr IVCONT .Q0M [facility]; Protocol Last Titration: 05/25/22 07:33 Dose: 8 units/kg/hr, 5.22 mls/hr Documented By: GEORGINA Co-signed By: BOYD Metoprolol Succinate (Metoprolol Succinate Er 50 Mg Tab.Er.24h) 50 mg PO BEDTIME [facility]; Protocol Last Admin: 05/24/22 22:52 Dose: 50 mg Documented By: ROBLES Ondansetron HCl (Ondansetron Hcl 4 Mg/2 Ml Vial) 4 mg IVPUSH Q8H PRN PRN Reason: Nausea and Vomiting Pharmacy Consult (Consult Rx Perform Med Rec) 1 each MISCELLANE ONCE PRN PRN Reason: Consult order Pravastatin Sodium (Pravastatin Sodium 20 Mg Tablet) 20 mg PO DAILY [facility] Last Admin: 05/25/22 08:15 Dose: 20 mg Documented By: GEORGINA Sodium Chloride (0.9 % Sodium Chloride Flush 3 Ml Syringe) 3 ml IVFLUSH QSHIFT [facility] Last Admin: 05/25/22 07:36 Dose: Not Given Documented By: GEORGINA Non-Admin Reason: IV Running Tamsulosin HCl (Tamsulosin Hcl 0.4 Mg Capsule) 0.4 mg PO DAILY [facility] Last Admin: 05/25/22 08:15 Dose: 0.4 mg Documented By: GEORGINA Labs CBC & Chem 7: 05/25/22 06:45 05/25/22 06:45 Labs: Laboratory Results - last 24 hr 05/24/22 05/24/22 05/24/22 10:07 13:58 14:08 MCV MCH MCHC RDW Plt Count MPV Absolute Nucleated RBC Nucleated RBC % (auto) PT INR APTT aPTT Heparin Protocol Anion Gap Estim Creat Clear Calc Estimated GFR Random Glucose Calcium Troponin I High Sens < 3.5 < 3.5 COVID-19 (BRETT) Negative COVID-19 Clin Com See Note 05/24/22 05/25/22 05/25/22 14:08 00:27 06:45 MCV 91.6 MCH 31.0 MCHC 33.8 RDW 11.9 Plt Count 175 MPV 10.6 Absolute Nucleated RBC 0.000 Nucleated RBC % (auto) 0.0 PT 13.0 INR 1.1 APTT 40.4 H aPTT Heparin Protocol 88.6 H Anion Gap Estim Creat Clear Calc Estimated GFR Random Glucose Calcium Troponin I High Sens COVID-19 (BRETT) COVID-19 Clin Com 05/25/22 05/25/22 05/25/22 06:45 06:45 06:45 MCV MCH MCHC RDW Plt Count MPV Absolute Nucleated RBC Nucleated RBC % (auto) PT 12.3 INR 1.1 APTT aPTT Heparin Protocol 80.1 H Anion Gap 5 L Estim Creat Clear Calc 77.3 Estimated GFR > 60 Random Glucose 112 Calcium 9.0 Troponin I High Sens COVID-19 (BRETT) COVID-19 Clin Com Assessment and Plan (1) Chest pain: Status: Acute (2) Unstable angina pectoris: Status: Acute Plan This is a 76 year old male with history of CAD s/p angioplasty in 1991, known 2 vessel CAD being managed conservatively, PAF on Eliquis, HTN Unstable angina known h/o CAD, coronary CT from 09/10 with dz of RCA and mid LAD trops negative, EKG unchanged from previous but history concerning continue heparin drip continue aspirin, statin cardiology consult Paroxysmal atrial fibrillation Hold Eliquis - Anticoagulation with heparin drip continue metoprolol for rate control HTN BP controlled continue norvasc, metoprolol DVT prophylaxis-heparin drip Code status-full code Healthcare proxy- Stephanie [phone] Attending-Dr. Hill Requires onging inpatient hospitalization for management of unstable angina necessitating heparin drip, specialist consultation with Cardiology Quality Stroke Does the patient have a stroke diagnosis?: No VTE Prior VTE?: No VTE Risk Level:: Medical - moderate - high VTE Device Contraindication: N/A - Device Ordered VTE Drug Contraindication: N/A - Med Ordered
[2022-05-25 11:58] VITALS: BP 131/61; PULSE 66; RESP 14; TEMP 36.8; O2SAT 93
--- NOTE | 2022-05-25 12:43 | PM.CNCAR ---
History of Present Illness History of Present Illness Date of Service: 05/25/22 Requesting physician: Simona Ortiz Chief complaint: unstable angina Narrative: 76-year-old gentleman known history of atrial fibrillation for which he has been on Eliquis. He also has hypertension and hyperlipidemia. He underwent stress testing in May 2021 where he developed ischemic EKG changes without any perfusion defect. Subsequent to that he had coronary CTA in August 2021 which had concern for mid LAD as well as RCA stenosis. Was asymptomatic at that time and dizzy and was made to medically treat him. He had done well since then. Yesterday he was at home where he started feeling sudden-onset sweating and chest pressure. These symptoms lasted for 5-6 minutes and then were dissolved. He decided to come to the emergency department. High sensitivity troponin levels were less than 3.5. EKG did not show any dynamic changes. Given known history of coronary disease in the past he was thought to have unstable angina and was started on heparin drip. He was also given aspirin load. Eliquis has been held and he has not received any Eliquis this morning. He has not had any further chest discomfort. [facility] Past Medical History Medical History CAD (coronary artery disease) Hyperlipidemia Hypertension Paroxysmal atrial fibrillation Family History Family History Mother No problems noted. Father No problems noted. Surgical History Surgical History Status post percutaneous transluminal coronary angioplasty Social History Social History (Updated 05/24/22 @ 15:19 by LUIS Serna) Household Members: Spouse Housing: House Do you presently have visiting nurse or other home services: No Alcohol intake: current Alcohol intake frequency: holidays/special occasions only Alcohol type: beer and hard liquor Patient Tobacco Use Status: Former Tobacco user Smoked in Last 30 Days: No Use of substances other than those prescribed or required for medical reasons: No Currently Displaying Signs/Symptoms of Drug Intoxication Withdrawal: No Have you been hit, kicked, punched, or otherwise hurt by someone within the past year? 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 Allergies Allergy/AdvReac Type Severity Reaction Status Date / Time Penicillins [PENICILLINS] Allergy Unknown UNKNOWN Verified 05/24/22 09:56 Active Medications: Current Medications Acetaminophen (Acetaminophen 325 Mg Tablet) 650 mg PO Q6H PRN PRN Reason: Pain, Mild (Pain Scale 1-3) Amlodipine Besylate (Amlodipine Besylate 5 Mg Tablet) 5 mg PO DAILY [facility]; Protocol Last Admin: 05/25/22 08:15 Dose: 5 mg Aspirin (Aspirin Enteric Coated 81 Mg Tablet.Dr) 81 mg PO DAILY [facility] Last Admin: 05/25/22 08:15 Dose: 81 mg Docusate Sodium (Docusate Sodium 100 Mg Capsule) 100 mg PO DAILY PRN PRN Reason: Constipation Heparin Sodium (Porcine) (Heparin Sodium,Porcine 5,000 Unit/Ml Vial) 2,600 unit 40 unit/kg (2600 unit) IVPUSH PROTOCOL BOLUS PRN; Protocol PRN Reason: 40 unit/kg - Heparin Protocol Heparin Sodium (Porcine) (Heparin Sodium,Porcine 5,000 Unit/Ml Vial) 5,200 unit 80 unit/kg (5200 unit) IVPUSH PROTOCOL BOLUS PRN; Protocol PRN Reason: 80 unit/kg - Heparin Protocol Heparin Sodium/Sodium Chloride (Heparin Sodium,Porcine/1/2ns) 25,000 unit in 250 mls @ 0 mls/hr IVCONT .Q0M [facility]; Protocol Last Titration: 05/25/22 07:33 Dose: 8 units/kg/hr, 5.22 mls/hr Metoprolol Succinate (Metoprolol Succinate Er 50 Mg Tab.Er.24h) 50 mg PO BEDTIME [facility]; Protocol Last Admin: 05/24/22 22:52 Dose: 50 mg Ondansetron HCl (Ondansetron Hcl 4 Mg/2 Ml Vial) 4 mg IVPUSH Q8H PRN PRN Reason: Nausea and Vomiting Pharmacy Consult (Consult Rx Perform Med Rec) 1 each MISCELLANE ONCE PRN PRN Reason: Consult order Pravastatin Sodium (Pravastatin Sodium 20 Mg Tablet) 20 mg PO DAILY [facility] Last Admin: 05/25/22 08:15 Dose: 20 mg Sodium Chloride (0.9 % Sodium Chloride Flush 3 Ml Syringe) 3 ml IVFLUSH QSHIFT [facility] Last Admin: 05/25/22 07:36 Dose: Not Given Tamsulosin HCl (Tamsulosin Hcl 0.4 Mg Capsule) 0.4 mg PO DAILY [facility] Last Admin: 05/25/22 08:15 Dose: 0.4 mg Home Medications Medication Instructions Recorded Confirmed Last Taken Type pravastatin 20 mg tablet 20 mg PO DAILY 05/15/20 05/24/22 05/24/22 09:00 History tamsulosin 0.4 mg capsule 0.4 mg PO DAILY 02/04/22 05/24/22 05/24/22 09:00 History metoprolol succinate 50 mg 50 mg PO BEDTIME 05/24/22 05/24/22 05/23/22 History tablet,extended release 24 hr Physical Exam Vital Signs: Vital Signs: Last Vital Signs Temp 98.3 F 05/25/22 11:58 Pulse 66 05/25/22 11:58 Resp 14 05/25/22 11:58 BP 131/61 05/25/22 11:58 Pulse Ox 93 05/25/22 11:58 O2 Del Method 05/25/22 11:58 BMI result Body Mass Index 21.9 GENERAL APPEARANCE: in no acute distress, pleasant. NECK: no carotid bruit, no jugular venous distention. SKIN: no suspicious lesions, warm and dry. HEART: no murmurs, regular rate and rhythm. LUNGS: clear to auscultation bilaterally. ABDOMEN: soft, nontender. EXTREMITIES: no edema. PERIPHERAL PULSES: equal. NEUROLOGIC: No gross deficits, AAO X 3 Objective Labs and Meds Result diagrams: 05/25/22 06:45 05/25/22 06:45 Lab results: Laboratory Results - last 24 hr 05/24/22 05/24/22 05/24/22 13:58 14:08 14:08 WBC RBC Hgb Hct MCV MCH MCHC RDW Plt Count MPV Absolute Nucleated RBC Nucleated RBC % (auto) PT 13.0 INR 1.1 APTT 40.4 H aPTT Heparin Protocol Sodium Potassium Chloride Carbon Dioxide Anion Gap BUN Creatinine Estim Creat Clear Calc Estimated GFR Random Glucose Calcium Troponin I High Sens < 3.5 COVID-19 (BRETT) Negative COVID-19 Clin Com See Note 05/25/22 05/25/22 05/25/22 00:27 06:45 06:45 WBC 4.9 RBC 4.42 L Hgb 13.7 L Hct 40.5 L MCV 91.6 MCH 31.0 MCHC 33.8 RDW 11.9 Plt Count 175 MPV 10.6 Absolute Nucleated RBC 0.000 Nucleated RBC % (auto) 0.0 PT 12.3 INR 1.1 APTT aPTT Heparin Protocol 88.6 H Sodium Potassium Chloride Carbon Dioxide Anion Gap BUN Creatinine Estim Creat Clear Calc Estimated GFR Random Glucose Calcium Troponin I High Sens COVID-19 (BRETT) COVID-19 Clin Com 05/25/22 05/25/22 05/25/22 06:45 06:45 10:45 WBC RBC Hgb Hct MCV MCH MCHC RDW Plt Count MPV Absolute Nucleated RBC Nucleated RBC % (auto) PT INR APTT aPTT Heparin Protocol 80.1 H 58.9 D Sodium 135 Potassium 4.1 Chloride 106 Carbon Dioxide 28 Anion Gap 5 L BUN 12 Creatinine 0.75 Estim Creat Clear Calc 77.3 Estimated GFR > 60 Random Glucose 112 Calcium 9.0 Troponin I High Sens COVID-19 (BRETT) COVID-19 Clin Com Assessment and Plan (1) Unstable angina pectoris: Status: Acute (2) Paroxysmal atrial fibrillation: Status: Acute Plan Pleasant 76 year gentleman presenting for sudden-onset and sweating and chest pressure. There is no dynamic EKG changes or biomarker rise. He has known history of coronary disease based on coronary CTA showing mid LAD as well as a right coronary artery stenosis. He received Eliquis yesterday. We will hold further Eliquis going forward. He is on heparin drip for unstable angina. He was given baby aspirin. On Toprol-XL which can be continued along with amlodipine. Blood pressure control is good. Stop the pravastatin and change him to atorvastatin 40 mg once a day. We will check echocardiogram tomorrow and transfer him for cardiac catheterization potentially for Thursday. He received Eliquis yesterday and needs to have it out of his system to decrease his rodolfo procedure bleeding risk. Thank you for allowing me to participate in the care of your patient. Please feel free to contact me if you have any questions. Procedures Date of Service Date of Service: 05/25/22
[2022-05-25 14:04] LABS: PTT Heparin Drip 48.6 SEC (53-77.9)
[2022-05-25] MEDS: Heparin Sodium,Porcine 5,000 UNIT/ML VIAL 2600 UNIT IVPUSH (14:14)
[2022-05-25 15:07] VITALS: BP 127/58; PULSE 74; RESP 18; TEMP 36.6; O2SAT 97
[2022-05-25] MEDS: Heparin Sodium,Porcine/1/2NS 25,000 UNIT/250 ML IV.SOLN 6.53 UNIT IVCONT (18:23)
[2022-05-25 19:38] VITALS: BP 129/72; PULSE 72; RESP 18; TEMP 36.1; O2SAT 98
[2022-05-25 20:40] LABS: PTT Heparin Drip 64.7 SEC (53-77.9)
[2022-05-25] MEDS: Metoprolol Succinate ER 50 MG TAB.ER.24H PO (20:50)
[2022-05-25] MEDS: Atorvastatin Calcium 40 MG TABLET PO (22:35)
[2022-05-26] VITALS: BP 112/65; PULSE 68; RESP 18; TEMP 37; O2SAT 96
[2022-05-26 03:02] LABS: PTT Heparin Drip 75.4 SEC (53-77.9)
[2022-05-26 04:00] VITALS: BP 104/58; PULSE 60; RESP 20; TEMP 36.8; O2SAT 98
[2022-05-26] MEDS: 0.9 % Sodium Chloride Flush 3 ML SYRINGE IVFLUSH ×2 (05:05→10:52)
[2022-05-26 07:24] VITALS: BP 122/58; PULSE 63; RESP 18; TEMP 36.2; O2SAT 95
[2022-05-26 07:45] LABS: Hematocrit 38.6 % (42.0-52.0); Hemoglobin 13.3 g/dl (14.0-18.0); Mean Corpuscular HGB Conc 34.5 g/dl (31.0-36.0); Mean Corpuscular Hemoglobin 31.2 pg (27.0-33.0); Mean Corpuscular Volume 90.6 fL (80.0-98.0); Platelet Count 182 X10*3/uL (160-400); Red Blood Count 4.26 X10*6/uL (4.60-5.80); Red Cell Distribution Width 11.9 % (11.0-16.0); White Blood Count 4.5 X10*3/uL (4.8-10.8)
[2022-05-26 07:47] LABS: PTT Heparin Drip 76.7 SEC (53-77.9)
--- NOTE | 2022-05-26 08:40 | MHC.CM.PN ---
CM met with Patient at bedside and addressed IMM with him, providing him with the original and placing a copy on the chart. 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 Home, self care is the goal and CM has initiated and will follow for dc planning. Patient has received Covid/Pfizer vax X4 and his PCP is Dr. Jorge Castillo.
--- NOTE | 2022-05-26 08:44 | MHC.CM.PN ---
Patient states that his Son/Mejia is his HCP.
--- NOTE | 2022-05-26 10:00 | CA_ITS ---
Transthoracic Echocardiogram Patient (Last, First, Middle): Rigoberto Romero A Gender: Male Date of : 1945 Age: 76 Procedure Date: 05/26/2022 Procedure Type: Transthoracic [place] [facility] [place]: 172.72 cm Weight: 64.86 kg BSA: 1.77 m2 Heart Rate: 76 bpm BP: 122 / 58 mmHg Revenue Director: BENNY Franco MD: Stacey Jansen NP Cadet Deck: Jens Murdock MD Symptoms: NSTEMI Study Quality: Fair/Contrast ECG Rhythm: Sinus Conclusions: - 1. Normal LV systolic function with impaired relaxation filling pattern 2. Normal cardiac valvular Doppler with fibrocalcific aortic valve changes noted 3. Normal RV systolic pressure 4. No gross pericardial effusion Findings Procedure Information Contrast agent, definity, is being given per protocol without apparent complications. Left Ventricle Normal left ventricular size, thickness, and systolic function. The visually estimated ejection fraction is between 65-70%. Spectral Doppler is indicative of an impaired relaxation filling pattern. E/E prime ratio is <8, consistent with normal filling pressures. Wall Motion Rest Echo Findings The basal inferior segment is hypokinetic. All other scored wall segments showed normal motion. Right Ventricle Normal right ventricular cavity size and systolic function. Atria Both atria are normal in size. Interatrial shunt cannot be excluded. Aortic Valve There is mild calcification of the aortic valve. There is mild thickening of the aortic valve. There is no aortic valve stenosis. There is no aortic valve regurgitation. Mitral Valve There is mild anterior and posterior mitral leaflet thickening. There is trace mitral valve regurgitation. There is no mitral valve stenosis. Pulmonic Valve The pulmonic valve was not well visualized. Tricuspid Valve Likely normal tricuspid valve structure and function. There is trace tricuspid valve regurgitation. The right ventricular systolic pressure is normal. The right ventricular systolic pressure is 18 mmHg. Normal right atrial pressure. Great Vessels The aorta was not well visualized. The pulmonary artery was not well visualized. Venous The inferior vena cava is normal in size and collapses greater than 50% with inspiration. Pericardium/Pleural There is no evidence of pericardial effusion. Prior Study Comparison No significant change compared to prior study dated: 05/08/2021. Measurements 2D Linear Measurements IVSd: 0.72 0.6-0.9/0.6-1.0 cm LVIDd: 4.46 3.9-5.3/4.2-5.9 cm LVIDd Index: 2.52 2.4-3.2/2.2-3.1 cm/m2 LVIDs: 3.73 2.0-3.6 cm LVPWd: 0.84 0.7-1.1 cm LA Diam: 2.60 2.7-3.8/3.0-4.0 cm LAIDs Index: 1.47 1.5-2.3 cm/m2 LV Mass: 134.63 67-162/88-224 g LV Mass Index: 76.06 43-95/49-115 g/m2 LVOT Diam: 2.00 3.0+(-)1.3 cm 2D Systolic Function EF 4C: 65.70 >55% EF 2C: 76.20 >55% Mitral Valve MV Pk E: 0.66 MV PK A: 1.07 MV Decel Time: 266.00 E/A: 0.60 E'Lateral: 9.14 E'Medial: 6.85 E/E' Med: 9.70 E/E' Lat: 7.20 PHT: 78.00 MVA PHT: 2.82 [place]el [place]: 2.49 Aortic Valve AoV Pk Charan: 1.65 AoV Mn Charan: 1.12 AoV VTI: 0.35 AoV Pk Grad: 11.00 Aov Mn Grad: 6.00 JEROME Cont.VTI: 2.39 LVOT LVOT Pk Charan: 1.40 LVOT Mn Charan: 0.98 LVOT VTI: 0.27 LVOT Pk Grad: 8.00 LVOT Mn Grad: 4.00 LVOT Diam: 2.00 LVOT Area: 3.14 Diastolic Function MV Pk E: 0.66 MV Pk A: 1.07 E/A: 0.60 E'Medial: 6.85 E/E' Med: 9.70 E' Laterial: 9.14 E/E' Lat: 7.20 Right Ventricle TAPSE (mm): 28.80 TVS' Charan: 11.20 Tricuspid Valve TR Pk Charan: 1.94 TR Pk Grad: 15.00 RA Press: 3.00 RVSP: 18.00 Great Vessels Aorta Sinus of Valsalva: 3.30 2.0-3.5 cm Ao Asc: 3.50 2.1-3.4 cm Pulmonary Valve PV Pk Charan: 0.98 Peak PV Grad: 4.00 Updated in Other Vendor System with Status of Final Jens Murdock MD electronically signed on 05/26/2022 2:36:33 PM with status of Final
[2022-05-26] MEDS: Aspirin Enteric Coated 81 MG TABLET.DR PO (10:52)
[2022-05-26] MEDS: Tamsulosin HCL 0.4 MG CAPSULE PO (10:52)
[2022-05-26] MEDS: amLODIPine Besylate 5 MG TABLET PO (10:52)
[2022-05-26 12:00] VITALS: BP 114/57; PULSE 66; RESP 18; TEMP 36.6; O2SAT 95
--- NOTE | 2022-05-26 13:49 | P.PNCA_ITS ---
Subjective Subjective Date of Service: 05/26/22 Principal diagnosis: Unstable angina Interval history: Rigoberto has no symptoms currently. Remains on IV heparin. Troponins are negative. No recurrent chest pain. Review of Systems Review of Systems Yes all other systems are reviewed and are negative Physical Exam Vital Signs: Last Vital Signs Temp 97.8 F 05/26/22 12:00 Pulse 66 05/26/22 12:00 Resp 18 05/26/22 12:00 BP 114/57 L 05/26/22 12:00 Pulse Ox 95 05/26/22 12:00 O2 Del Method 05/26/22 12:00 BMI result Body Mass Index 21.9 Const General: cooperative, comfortable, no acute distress, alert and awake Nutritional Appearance: average body habitus Orientation/consciousness: patient oriented x3 Neck Neck: Yes trachea midline, Yes supple and Yes no JVD Resp Effort & Inspection: normal respiratory effort Auscultation: clear to auscultation bilaterally Cardio Jugular venous distension: no JVD Palpation: normal PMI Rate: regular rate Rhythm: regular rhythm Heart sounds: S1 normal heart sound present, S2 normal heart sound present, no click, no gallops and no murmurs Skin General skin exam: no rashes or lesions noted Neuro General: patient oriented x3 and no focal motor deficits Extrem General: Yes no clubbing, cyanosis or edema Psych Appearance: grossly normal Objective Labs and Meds Result diagrams: 05/26/22 07:25 05/25/22 06:45 Lab results: Laboratory Results - last 24 hr 05/25/22 05/25/22 05/26/22 13:24 19:57 02:00 WBC RBC Hgb Hct MCV MCH MCHC RDW Plt Count MPV Absolute Nucleated RBC Nucleated RBC % (auto) aPTT Heparin Protocol 48.6 L 64.7 D 75.4 05/26/22 05/26/22 07:25 07:25 WBC 4.5 L RBC 4.26 L Hgb 13.3 L Hct 38.6 L MCV 90.6 MCH 31.2 MCHC 34.5 RDW 11.9 Plt Count 182 MPV 11.0 Absolute Nucleated RBC 0.000 Nucleated RBC % (auto) 0.0 aPTT Heparin Protocol 76.7 Progress Note: A&P Assessment and plan (1) Unstable angina pectoris: Status: Acute Assessment and Plan: Unstable angina this elderly gentleman with prior coronary vascularization. Currently symptom-free. Discussed with him about management of this. Recommend cardiac catheterization. Will be transferred to [facility]. We discussed the risks, benefits, alternatives to the procedure. Understands agrees. Continue IV heparin. Continue aspirin high-intensity statin therapy. Further treatment based on the findings of cardiac catheterization. He understands and agrees. Transfer arrangements have been made. (2) Paroxysmal atrial fibrillation: Status: Acute Assessment and Plan: Paroxysmal atrial fibrillation without any obvious recurrence at this point time . Continue current medical therapy. After cardiac catheterization will require oral anticoagulation therapy. This was discussed with him. Continue metoprolol therapy. Will follow up in the clinic after cardiac catheterization. Thank you for allowing me to partake in his care Time Spent With Patient Time: Total time spent is greater than 50% in coordination of care (as documented) at patient's floor/unit and/or counseling patient: Progress Note: Quality Stroke Does the patient have a stroke diagnosis?: No Procedures Date of Service Date of Service: 05/26/22
--- NOTE | 2022-05-26 14:01 | PM.DS ---
DS: Providers Provider Date of Service: 05/26/22 Date of admission: 05/24/22 15:07 Primary care physician: Jorge Castillo MD Consults: 05/24/22 14:06 Consult to Cardiology Stat Consulting Provider: Driss Allen Reason for consultation: angina Has provider been notified: Yes 05/24/22 15:12 Consult to Cardiology Routine Consulting Provider: Driss Allen Reason for consultation: chest pain Has provider been notified: No Attending physician on discharge: Vlad Hill Discharging clinician: Stacey Jansen DS: Diagnosis Discharge Diagnosis (1) Unstable angina pectoris: Status: Acute (2) Paroxysmal atrial fibrillation: Status: Acute DS: Summary Hospital Course Hospital Course: History and physical as per admitting provider This is a 76-year-old male with history of coronary artery disease who presents to the emergency department with chest pain.? He was in his usual state of health until this morning when he began having central chest pressure associated with diaphoresis. Pain was localized and did not radiate anywhere.? He had no associated shortness of breath, nausea, vomiting. His pain slowly resolved over several minutes after sitting down. Patient has a known history of 2-vessel disease and has been managed conservatively.? He has remained asymptomatic until this morning.? His cardiac enzymes are negative, EKG with no acute ischemic changes. He does report increase in stress due to illness of his . Previously he was active and walking daily but more recently he has been focused on caring for his . Currently he is not experiencing any chest pain . Unstable angina known h/o CAD, coronary CT from 09/10 with dz of RCA and mid LAD trops negative, EKG unchanged from previous but history concerning continue heparin drip continue aspirin, statin Tx to [facility] for cardiac cath echo pending Paroxysmal atrial fibrillation Hold Eliquis - Anticoagulation with heparin drip continue metoprolol for rate control HTN BP controlled continue norvasc, metoprolol Time Spent with Patient Time attestation: Total time spent providing and/or coordinating discharge services: Discharge coordination time: Greater than 30 minutes Quality: Safe Use of Opioids Does Pt have an Active Cancer Diagnosis on the Problem List?: No Quality: Stroke Does the patient have a stroke diagnosis?: No Physical Exam Vital Signs: Vital Signs: Last Vital Signs Temp 97.8 F 05/26/22 12:00 Pulse 66 05/26/22 12:00 Resp 18 05/26/22 12:00 BP 114/57 L 05/26/22 12:00 Pulse Ox 95 05/26/22 12:00 O2 Del Method 05/26/22 12:00 BMI result Body Mass Index 21.9 Appearing in no acute distress head is normocephalic atraumatic eyes pupils are PERRLA sclera is anicteric mouth throat mucous membranes are intact and moist neck is supple no lymphadenopathy, no JVD noted lung sounds are clear to auscultation heart regular rate rhythm, clear S1, S2 positive bowel sounds, abdomen is soft, nontender neuro patient is alert x3, no focal deficits DS: Data Data Completed and Pending Labs on day of discharge: Laboratory Results - last 24 hr 05/25/22 05/25/22 05/26/22 13:24 19:57 02:00 WBC RBC Hgb Hct MCV MCH MCHC RDW Plt Count MPV Absolute Nucleated RBC Nucleated RBC % (auto) aPTT Heparin Protocol 48.6 L 64.7 D 75.4 05/26/22 05/26/22 07:25 07:25 WBC 4.5 L RBC 4.26 L Hgb 13.3 L Hct 38.6 L MCV 90.6 MCH 31.2 MCHC 34.5 RDW 11.9 Plt Count 182 MPV 11.0 Absolute Nucleated RBC 0.000 Nucleated RBC % (auto) 0.0 aPTT Heparin Protocol 76.7 Discharge Plan Discharge Anticipated Discharge Date/Time: 05/26/22 13:54 Patient Disposition: Xfer Acute [facility] Discharge Diagnosis: Unstable angina Referrals: Jorge Castillo MD [Primary Care Provider] - 1 Week Discharge Medications: New heparin(porcine) in 0.45% NaCl 25,000 unit/250 mL Parenteral Solution 25,000 unit continuous IV infusion .Q0M Qty: 6000 0RF aspirin 81 mg Tablet,Delayed Release (Dr/Ec) 81 mg PO DAILY Qty: 30 0RF Continued amlodipine 5 mg tablet 5 mg PO DAILY Qty: 30 1RF Eliquis 5 mg tablet 5 mg PO BID Qty: 60 5RF metoprolol succinate 50 mg tablet extended release 24 hr 50 mg PO BEDTIME pravastatin 20 mg tablet 20 mg PO DAILY tamsulosin 0.4 mg capsule 0.4 mg PO DAILY Discharge Orders: Discharge Order (Routine); Ordered 05/26/22 Ordered By: Stacey Jansen Diet: Advance to usual diet Activity on Discharge: As tolerated Stand Alone Forms: Patient Portal Discharge page Care Plan Goals: Transfer to tertiary facility Health Concerns: Unstable angina Plan of Treatment: Transferred to [facility] for cardiac catheterization Continue on IV heparin drip, asa and statin Assessment: See discharge summary
--- NOTE | 2022-05-26 14:20 | MHC.CM.PN ---
Patient will be dc/transferred to [facility] for a Cardiac Catheterization.
[2022-05-26 16:00] VITALS: BP 125/63; PULSE 67; RESP 18; TEMP 36.7; O2SAT 98
[2022-05-26] MEDS: Heparin Sodium,Porcine/1/2NS 25,000 UNIT/250 ML IV.SOLN 6.53 UNIT IVCONT (18:05)
[2022-05-26] MEDS: Metoprolol Succinate ER 50 MG TAB.ER.24H PO (19:33)
[2022-05-26] MEDS: Atorvastatin Calcium 40 MG TABLET PO (19:33)
== END 2022-05-26 22:18 | disposition short-term general hospital (02) | DRG 303 ==
LOC: HO.ED 14:29 → HO.EDOVER 15:18 → HO.IMC 19:28
PROVIDERS: Nurse Practitioner Family; Physician Assistant; Student in an Organized Health Care Education/Training Program; Admitting Provider Physician Assistant Medical; Emergency Provider Emergency Medicine; PCP Internal Medicine; Visit Provider Nurse Practitioner Acute Care
DX: I25.110 Atherosclerotic heart disease of native coronary artery with unstable angina pectoris (principal); E78.5 Hyperlipidemia, unspecified; I10 Essential (primary) hypertension; I48.0 Paroxysmal atrial fibrillation; Z20.822 Contact with and (suspected) exposure to COVID-19; Z87.891 Personal history of nicotine dependence; Z79.01 Long term (current) use of anticoagulants; Z79.899 Other long term (current) drug therapy
CPT/HCPCS: 36415; 71045; 80048; 84484; 85025; 85027; 85610; 85730; 87635; 93005; 93306; 99285; Q9957

== ENCOUNTER → 2022-06-12 09:22 | Outpatient (BNVA) | payer MEDICARE, SELFPAY | PROVIDERS: PCP Internal Medicine; Visit Provider Internal Medicine Cardiovascular Disease | DX: I48.0 Paroxysmal atrial fibrillation (principal); I10 Essential (primary) hypertension | CPT/HCPCS: 99212 ==

== ENCOUNTER 2022-10-17 10:35 | Outpatient (REF) | payer MEDICARE, SELFPAY ==
[2022-10-17 11:29] LABS: Alanine Aminotransferase 20 U/L (0-40); Albumin Level 4.1 g/dL (3.5-5.0); Alkaline Phosphatase 81 U/L (39-117); Aspartate Amino Transferase 16 U/L (5-37); Bilirubin Direct 0.2 mg/dL (0.0-0.5); Bilirubin Total 0.5 mg/dL (0.0-1.0); Cholesterol 194 mg/dL; HDL Cholesterol 66 mg/dL; LDL Cholesterol Calculated 117 mg/dl; Total Protein 6.9 g/dL (6.5-8.0); Triglycerides 55 mg/dL
[2022-10-17 11:50] LABS: Reflex LDLD? No
== END 2022-10-17 10:36 | disposition home or self-care (01) ==
LOC: HO.LNP 10:35
PROVIDERS: Visit Provider Internal Medicine
DX: I25.10 Atherosclerotic heart disease of native coronary artery without angina pectoris (principal)
CPT/HCPCS: 80061; 80076

== ENCOUNTER → 2022-12-16 09:49 | Outpatient (BNVA) | payer MEDICARE, SELFPAY | PROVIDERS: PCP Internal Medicine; Referring Provider Internal Medicine; Visit Provider Internal Medicine Cardiovascular Disease | DX: I48.0 Paroxysmal atrial fibrillation (principal); I10 Essential (primary) hypertension; Z79.01 Long term (current) use of anticoagulants; Z79.899 Other long term (current) drug therapy | CPT/HCPCS: 99212 ==

== ENCOUNTER 2023-04-17 11:32 | Outpatient (REF) | payer MEDICARE, SELFPAY ==
[2023-04-17 11:36] LABS: MANUAL DIFF FLAG NO
[2023-04-17 11:40] LABS: Appearance Urine Hazy; Color Urine Yellow; Glucose Urine UA Negative (Negative); Leukocyte Esterase Urine Negative (Negative); Nitrite Urine Negative (Negative); PH 5.5 (5.0-9.0); Specific Gravity - Urine 1.025 (1.005-1.025); Urine Blood Negative (Negative); Urine Ketones Negative (Negative); Urine Protein Negative (Neg-Trace)
[2023-04-17 11:43] LABS: Basophils Percent Auto 0.5 % (0-2); Eosinophils Absolute Auto 0.2 X10*3/uL (0.0-0.4); Eosinophils Percent Auto 3.4 % (0-4); Hematocrit 38.7 % (42.0-52.0); Hemoglobin 12.9 g/dl (14.0-18.0); Imm Gran Abs Auto 0.01 X10*3/uL (0.00-0.03); Imm Gran Pct Auto 0.2 % (0.0-0.4); Lymphocytes Absolute Auto 1.4 X10*3/uL (1.2-4.9); Lymphocytes Percent Auto 30.7 % (20-40); Mean Corpuscular HGB Conc 33.3 g/dl (31.0-36.0); Mean Corpuscular Hemoglobin 31.1 pg (27.0-33.0); Mean Corpuscular Volume 93.3 fL (80.0-98.0); Mean Platelet Volume 11.7 fL (9.4-12.4); Monocytes Absolute Auto 0.5 X10*3/uL (0.1-1.2); Monocytes Percent Auto 11.5 % (2-11); Neutrophils Absolute Auto 2.4 x10*3/uL (2.0-8.3); Neutrophils Percent Auto 53.7 % (45-73); Platelet Count 191 X10*3/uL (160-400); Red Blood Count 4.15 X10*6/uL (4.60-5.80); Red Cell Distribution Width 12.2 % (11.0-16.0); White Blood Count 4.4 X10*3/uL (4.8-10.8)
[2023-04-17 12:42] LABS: Alanine Aminotransferase 18 U/L (0-40); Albumin Level 3.9 g/dL (3.5-5.0); Alkaline Phosphatase 65 U/L (39-117); Anion Gap 12 (12-20); Aspartate Amino Transferase 20 U/L (5-37); Bilirubin Total 0.6 mg/dL (0.0-1.0); Blood Urea Nitrogen 17 mg/dL (9-16); Calcium 9.3 mg/dL (8.4-10.2); Carbon Dioxide 27 mmol/L (22-29); Chloride 105 mmol/L (96-108); Cholesterol 187 mg/dL (<200); Estimated Glomerular Filt Rate > 60; Glucose Fasting 86 mg/dL (60-99); HDL Cholesterol 63 mg/dL (>40); LDL Cholesterol Calculated 116 mg/dL (<100); Potassium 4.2 mmol/L (3.3-5.1); Sodium 140 mmol/L (135-145); Total Protein 7.1 g/dL (6.5-8.0); Triglycerides 42 mg/dL (<150)
[2023-04-17 12:53] LABS: PSA,Total (Free>4and<10) 3.19 ng/mL (0.00-4.00)
[2023-04-17 13:00] LABS: Bacteria Urine None Seen (None Seen); Squamous Epithelial Cell Urine 0-2 /HPF (0-2); WBC Urine 0-5 /HPF (0-5)
== END 2023-04-17 11:33 | disposition home or self-care (01) ==
LOC: HO.LNP 11:32
PROVIDERS: Visit Provider Internal Medicine
DX: Z12.5 Encounter for screening for malignant neoplasm of prostate (principal); N40.0 Benign prostatic hyperplasia without lower urinary tract symptoms; D70.9 Neutropenia, unspecified; I10 Essential (primary) hypertension
CPT/HCPCS: 80053; 80061; 81001; 84153; 85025

== ENCOUNTER 2023-05-21 10:22 | Outpatient (REF) | payer MEDICARE, SELFPAY ==
[2023-05-21 10:49] LABS: Appearance Urine Clear; Color Urine Yellow; Glucose Urine UA Negative (Negative); Leukocyte Esterase Urine Trace (Negative); Nitrite Urine Negative (Negative); PH 6.5 (5.0-9.0); Specific Gravity - Urine 1.015 (1.005-1.025); UMIC TRIGGER UACC YES; Urine Blood Negative (Negative); Urine Ketones Negative (Negative); Urine Protein Negative (Neg-Trace)
[2023-05-21 10:53] LABS: Bacteria Urine None Seen (None Seen); Hyaline Casts Urine 0-2 /LPF (0-2); RBC Urine 0-2 /HPF (0-2); Squamous Epithelial Cell Urine 0-2 /HPF (0-2); WBC Urine 0-5 /HPF (0-5)
== END 2023-05-21 10:23 | disposition home or self-care (01) ==
LOC: HO.LNP 10:22
PROVIDERS: PCP Internal Medicine; Visit Provider Internal Medicine
DX: R31.29 Other microscopic hematuria (principal)
CPT/HCPCS: 81001

== ENCOUNTER 2023-10-22 10:51 | Outpatient (REF) | payer MEDICARE, SELFPAY ==
[2023-10-22 11:45] LABS: Alanine Aminotransferase 27 U/L (0-40); Albumin Level 4.1 g/dL (3.5-5.0); Alkaline Phosphatase 71 U/L (39-117); Aspartate Amino Transferase 23 U/L (5-37); Bilirubin Direct 0.2 mg/dL (0.0-0.5); Bilirubin Total 0.3 mg/dL (0.0-1.0); Cholesterol 191 mg/dL (<200); HDL Cholesterol 65 mg/dL (>40); LDL Cholesterol Calculated 117 mg/dL (<100); Total Protein 7.5 g/dL (6.5-8.0); Triglycerides 49 mg/dL (<150)
[2023-10-22 12:20] LABS: Reflex LDLD? No
== END 2023-10-22 10:52 | disposition home or self-care (01) ==
LOC: HO.LNP 10:51
PROVIDERS: Visit Provider Internal Medicine
DX: I25.10 Atherosclerotic heart disease of native coronary artery without angina pectoris (principal)
CPT/HCPCS: 80061; 80076

== ENCOUNTER → 2023-11-17 13:46 | Outpatient (REF) | payer MEDICARE, SELFPAY ==
--- NOTE | 2023-11-17 13:48 | CA_ITS ---
Transthoracic Echocardiogram Patient (Last, First, Middle): Rigoberto Romero A Gender: Male Date of : 1945 Age: 78 Procedure Date: 11/17/2023 Procedure Type: Transthoracic Echocardiogram Location: OP Height: 172.72 cm Weight: 65.77 kg BSA: 1.78 m2 Heart Rate: bpm BP: 106 / 62 mmHg Commodities Broker: ASHU Referring MD: Jens Murdock MD Symptoms: I48.0 - Paroxysmal atrial fibrillation Study Quality: Adequate ECG Rhythm: Sinus Conclusions: - The left ventricular systolic function is normal. The calculated ejection fraction is 65% by biplane method. - Aortic valve calcification but no significant stenosis. Findings Left Ventricle Normal left ventricular cavity size. There is normal left ventricular wall thickness. The left ventricular systolic function is normal. The calculated ejection fraction is 65% by biplane method. There is no evidence of regional wall motion abnormalities. Diastolic function is normal for age. LV peak GLS -22.2%. Right Ventricle Normal right ventricular cavity size and systolic function. Atria Both atria are normal in size. Aortic Valve There is moderate calcification of the aortic valve. There is no aortic valve stenosis. There is no aortic valve regurgitation. Mitral Valve The mitral valve appears normal. There is no mitral valve regurgitation. There is no mitral valve stenosis. Pulmonic Valve The pulmonic valve is likely normal. Tricuspid Valve Normal tricuspid valve structure. There is trace tricuspid valve regurgitation. There is no evidence of pulmonary hypertension. Great Vessels The asc aorta is normal in size. Venous The inferior vena cava is normal in size and collapses greater than 50% with inspiration. Pericardium/Pleural There is no evidence of pericardial effusion. Prior Study Comparison No significant change compared to prior study dated: 05/26/2022. Measurements 2D Linear Measurements IVSd: 0.68 0.6-0.9/0.6-1.0 cm LVIDd: 4.71 3.9-5.3/4.2-5.9 cm LVIDd Index: 2.65 2.4-3.2/2.2-3.1 cm/m2 LVIDs: 2.88 2.0-3.6 cm LVPWd: 0.71 0.7-1.1 cm LA Diam: 3.30 2.7-3.8/3.0-4.0 cm LAIDs Index: 1.85 1.5-2.3 cm/m2 LV Mass: 127.51 67-162/88-224 g LV Mass Index: 71.63 43-95/49-115 g/m2 LVOT Diam: 2.00 3.0+(-)1.3 cm 2D Systolic Function EF 4C: 63.80 >55% EF 2C: 66.90 >55% EF BiP: 64.60 >55% Mitral Valve MV Pk E: 1.01 MV PK A: 1.08 MV Decel Time: 154.00 E/A: 0.90 E'Lateral: 9.25 E'Medial: 7.07 E/E' Med: 14.30 E/E' Lat: 10.90 PHT: 45.00 MVA PHT: 4.89 Decel [place]: 6.57 Aortic Valve AoV Pk Charan: 1.80 AoV Mn Charan: 1.22 AoV VTI: 0.45 AoV Pk Grad: 13.00 Aov Mn Grad: 7.00 JEROME Cont.VTI: 1.92 LVOT LVOT Pk Charan: 1.19 LVOT Mn Charan: 0.81 LVOT VTI: 0.28 LVOT Pk Grad: 6.00 LVOT Mn Grad: 3.00 LVOT Diam: 2.00 LVOT Area: 3.14 Diastolic Function MV Pk E: 1.01 MV Pk A: 1.08 E/A: 0.90 E'Medial: 7.07 E/E' Med: 14.30 E' Laterial: 9.25 E/E' Lat: 10.90 Right Ventricle TAPSE (mm): 26.70 TVS' Charan: 12.70 Tricuspid Valve TR Pk Charan: 2.16 TR Pk Grad: 19.00 RA Press: 3.00 RVSP: 22.00 Great Vessels Aorta Sinus of Valsalva: 3.46 2.0-3.5 cm Ao Asc: 2.90 2.1-3.4 cm Updated in Other Vendor System with Status of Final Brigido Lui MD electronically signed on 11/18/2023 12:24:16 PM with status of Final
== END ==
LOC: HO.CARD 13:46
PROVIDERS: PCP Internal Medicine; Visit Provider Internal Medicine Cardiovascular Disease
DX: I48.0 Paroxysmal atrial fibrillation (principal)
CPT/HCPCS: 93306; 93356

== ENCOUNTER → 2023-11-17 13:48 | Outpatient (BNV) | payer MEDICARE, SELFPAY | PROVIDERS: PCP Internal Medicine; Visit Provider Internal Medicine | DX: I35.8 Other nonrheumatic aortic valve disorders (principal) | CPT/HCPCS: 93306; 93356 ==

== ENCOUNTER 2023-12-10 10:34 | Outpatient (AMB) | payer MEDICARE, SELFPAY ==
--- NOTE | 2023-12-10 10:35 | MHC.OFFVIS ---
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 Patient denies any clear cardiovascular complaints. Denies any prolonged palpitation irregular heartbeat. Denies any exertional chest pain. Echocardiogram shows normal LV systolic function with mild fibrocalcific aortic valve changes noted. Coronary CTA shows moderately severe coronary disease. Denies any anginal sounding chest discomfort. Last LDL of 116 mg/dL not well optimized. Currently on full oral anticoagulation without any bleeding issues or neurologic events. No recent renal profile in the system. [facility] Medical History (Updated 12/10/23 @ 11:04 by Jens Murdock MD) CAD (coronary artery disease) Hypertension Hyperlipidemia Paroxysmal atrial fibrillation Surgical History Status post percutaneous transluminal coronary angioplasty Family History Mother No problems noted. Father No problems noted. Social History Household Members: Spouse Housing: House Do you presently have visiting nurse or other home services: No Alcohol intake: current Alcohol intake frequency: holidays/special occasions only Alcohol type: beer and hard liquor Patient Tobacco Use Status: Former Tobacco user service: No Current occupational status: retired Current occupation: Left Handed Review of Systems Const Denies chills, Denies fatigue, Denies fever(s), Denies frequent falls, Denies weakness, Denies weight gain and Denies weight loss ENT Denies dizziness Card Denies chest pain, Denies leg edema, Denies lightheadedness, Denies palpitations, Denies dyspnea, Denies dyspnea on exertion, Denies orthopnea and Denies other (loss of consciousness) Resp Denies cough, Denies dyspnea and Denies dyspnea on exertion GI Denies hematochezia and Denies change in stool character Musc Denies abnormal gait, Denies muscle weakness, Denies numbness, Denies radiating pain into limb and Denies tingling Neuro Denies abnormal gait, Denies dizziness, Denies frequent falls, Denies numbness, Denies tingling and Denies weakness Endo Denies fatigue and Denies palpitations Physical Exam Vital Signs: Last Vital Signs Pulse 61 12/10/23 10:36 BP 144/70 H 12/10/23 10:36 BMI result Body Mass Index 22.8 Const General: cooperative, healthy appearing, comfortable, no acute distress, alert, awake and anxious Nutritional Appearance: thin Orientation/consciousness: patient oriented x3 Limitations: no limitations Eyes General: appearance normal, both eyes and all related structures Neck Neck: Yes normal visual inspection, Yes trachea midline, Yes supple and Yes no JVD Carotids: other ( No carotid bruit) Chest Chest palpation & inspection: normal inspection of the chest Resp Effort & Inspection: normal respiratory effort Auscultation: clear to auscultation bilaterally Cardio Jugular venous distension: no JVD Palpation: normal PMI Rate: regular rate Rhythm: regular rhythm Heart sounds: S1 normal heart sound present, S2 normal heart sound present and Other heart sounds present ( S4 present) GI Inspection: Yes scaphoid Auscultation: normal bowel sounds Skin General skin exam: no rashes or lesions noted and ecchymosis Neuro General: patient oriented x3 and no focal motor deficits Extrem General: Yes no clubbing, cyanosis or edema Psych Appearance: grossly normal Affect: Anxious affect present Office Procedures EKG Details: EKG shows normal sinus rhythm normal EKG at 61 beats per minute [id number], Complete Assessment & Plan Assessment & Plan (1) CAD (coronary artery disease): Comment: No significant coronary artery disease but mid LAD bridge on cardiac catheterization Code(s): I25.10 - Atherosclerotic heart disease of [place] coronary artery without angina pectoris Category: Medical Plan: Coronary artery disease by coronary CTA with evidence of atherosclerosis. Currently on full oral anticoagulation with Eliquis, continue the same. Avoid aspirin therapy. Needs more intense lipid modification goal LDL closer to 60 mg/dL. Will switch his pravastatin to Lipitor 40 mg daily. Follow-up lipid panel in 3 months time. Continue aggressive blood pressure control. If blood pressure generally appears to be well optimized and occasionally has orthostatic lightheadedness. On today's exam the blood pressure is slightly elevated but would not change any medications. Advise increase fluid intake. (2) Paroxysmal atrial fibrillation: Code(s): I48.0 - Paroxysmal atrial fibrillation Category: Medical Plan: Paroxysmal atrial fibrillation highly symptomatic. Currently suppressed without any antiarrhythmic drug therapy. Discussed with him about management. No need for antiarrhythmic drug therapy at this point time. Heart rate is 61 beats per minute avoid beta-talia therapy. Continue full oral anticoagulation, currently on Eliquis 5 mg b.i.d.. Semi annual renal function test should be pursued. Avoidance of stimulants was discussed advised to call me with worsening symptoms. Will follow up in the clinic in 1 year's time, sooner p.r.n.. Thank you for allowing me to partake in his care Coding Level of Care Code Est Pt Level 4 (37590) Diagnoses CAD (coronary artery disease) I25.10 Paroxysmal atrial fibrillation I48.0 CPT Codes EKG - CPT: 15668-[id number], Complete ([id number])
[2023-12-10 10:36] VITALS: BP 144/70; PULSE 61; BMI 22.8
== END 2023-12-10 11:00 | disposition home or self-care (01) ==
PROVIDERS: PCP Internal Medicine; Visit Provider Internal Medicine Cardiovascular Disease
DX: I25.10 Atherosclerotic heart disease of native coronary artery without angina pectoris (principal); I48.0 Paroxysmal atrial fibrillation
CPT/HCPCS: 93010; 99214

== ENCOUNTER → 2023-12-10 10:34 | Outpatient (BNVA) | payer MEDICARE, SELFPAY | PROVIDERS: PCP Internal Medicine; Visit Provider Internal Medicine Cardiovascular Disease | DX: I25.10 Atherosclerotic heart disease of native coronary artery without angina pectoris (principal); I10 Essential (primary) hypertension; I48.0 Paroxysmal atrial fibrillation; Z98.61 Coronary angioplasty status | CPT/HCPCS: 93005; 99212 ==

== ENCOUNTER 2024-01-19 11:00 | Outpatient (RCR) | payer MEDICARE, SELFPAY ==
--- NOTE | 2024-01-19 13:36 | MHC.PT.DC ---
[facility] [place] Office [place] Office [place] Office [address] Amparo Hairston [address] [phone] F: [phone] F: [phone] F: [phone] F: [phone] Physical Therapy Discharge Report Diagnosis: L shoulder pain. Date of Surgery: Date of Evaluation: 11/30/23 Date of Discharge: Treatments to Date: 7 Cancellations to Date: No Shows to Date: Discharge Status: Discharge Summary: Rigoberto is appropriate for DC today demonstrated by decreased pain, improved function and meeting some of his goals. He has been consistent with PT and will continue HEP on his own. His SPADI outcome measure showed some improvement though not significant. Rigoberto persists with shoulder pain with overhead activities, and laying on his L side, he has not returned to his preferred recreation of target bow shooting. 01/18: Pt experienced pain with supine B press and overhead flexion w/ YTB Y loop. Switched to cane, pain and ROM improved. Ball on wall dynamic scap stabilization discontinued due to 12/29 pain. 01/11: Pt has made some improvements in his strength and ROM though overhead activities remain painful and weak. He reports ache at night is much improved though still cannot lay on his L shoulder. 01/04: P is tolerating stability program well however has pain while trying to perform overhead elevation against gravity, he demos adequate PROM; reports pain of L upper trap/ supraspinatus. Pt encouraged to f/u with PCP as we discussed 2 visits to discharge and he continues to be concerned about his pain with activity and PM pain. 7.9: increased load of comfortable exercises and progressed ideas; difficulty with AROM overhead shelf reaching . 7/: Pt reports HEP not increasing his pain. feels about the same; added bow draw exercise with scap setting to HEP. No adverse effects. minimal discomfort with activities. Reviewed exercises with some progression; Pt reported some non lasting shoulder discomfort with horiz abd and door pec stretch in high position whith was regressed to low position. Pt reported soreness a day after exercises so assess Tx affect NV. Added IR, ER to HEP as well as shoulder ABCs. Electronically signed by: Please sign and return to therapist. Thank you for your referral.
== END 2024-01-19 13:35 | disposition home or self-care (01) ==
LOC: HO.PT 11:00
PROVIDERS: PCP Internal Medicine; Visit Provider Internal Medicine
DX: M50.90 Cervical disc disorder, unspecified, unspecified cervical region (principal)
CPT/HCPCS: 97110; 97140; 97161; 97530

== ENCOUNTER 2024-02-18 08:47 | Outpatient (AMB) | payer MEDICARE, SELFPAY ==
[2024-02-18 08:49] VITALS: BMI 22.7
--- NOTE | 2024-02-18 08:49 | MHC.OFFVIS ---
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 Patient reports that he has had ongoing pain for quite some time now. His pain is mostly felt with lifting above shoulder height and when he sleeps on the left side. When the shoulder is painful he notices that he has some numbness radiating down the left arm . 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 Patient reports that he has had ongoing pain for quite some time now. His pain is mostly felt with lifting above shoulder height and when he sleeps on the left side. When the shoulder is painful he notices that he has some numbness radiating down the left arm . Rigoberto is active and describes lifestyle which includes occasional bow hunting, shoveling snow, raking, climbing trees. He has done physical therapy and describes 20+ years of shoulder discomfort but it has worsened over the last few years. He finds it difficult to engage in lifting activities with his left arm. He is left-hand dominant. [facility] Medical History (Updated 02/18/24 @ 09:19 by Romaine Castro MD) CAD (coronary artery disease) Hypertension Hyperlipidemia Paroxysmal atrial fibrillation Surgical History Status post percutaneous transluminal coronary angioplasty Family History Mother No problems noted. Father No problems noted. Social History Household Members: Spouse Housing: House Do you presently have visiting nurse or other home services: No Alcohol intake: current Alcohol intake frequency: holidays/special occasions only Alcohol type: beer and hard liquor Patient Tobacco Use Status: Former Tobacco user service: No Current occupational status: retired Current occupation: Left Handed Physical Exam Vital Signs: BMI result Body Mass Index 22.7 Extrem Other: He has 45 degrees of external rotation with a 4+ out of 5 empty can on the left. Scapular recruitment with overhead abduction. Results Reviewed Results Reviewed: MRI of the left shoulder done at [facility]: CONCLUSION: 1. There is full-thickness tearing and tendon retraction of the anterior leg edge of the supraspinatus tendon. There is intrasubstance partial tearing of the myotendinous junction of the tendon and there is tendinopathy of the posterior fibers. 2. There is thickening and tendinopathy of the subscapularis tendon. 3. There is tendinopathy of the intra-articular portion of the long head of the biceps tendon and tenosynovitis within the bicipital groove. 4. There is moderate AC joint hypertrophic degenerative changes. 5. There is a small subacromial/subdeltoid bursitis and connecting joint effusion. Assessment & Plan Assessment & Plan (1) Rotator cuff tear, left: Code(s): M75.102 - Unspecified rotator cuff tear or rupture of left shoulder, not specified as traumatic Category: Medical Plan: This is a 78-year-old gentleman with a history of coronary artery disease status post angioplasty on Eliquis. He is very active and healthy otherwise. His MRI demonstrates a full-thickness tear of the anterior supraspinatus with mild retraction and no significant atrophy. We had a long discussion regarding treatment options. Surgery is a possibility but ultimately 1 in which I think the benefits do not outweigh the risks. I think the recovery would be long and he is pretty functional now and it would be more prudent if he modify his activities in my opinion. I did discuss this with him as well as the risks and benefits and alternatives. He expressed understanding and will consider his options and let me know if he wants to proceed forward with surgery but I suspect he will not. Coding Level of Care Code Est Pt Level 4 (60836) Diagnoses Rotator cuff tear, left M75.102
== END 2024-02-18 09:18 | disposition home or self-care (01) ==
PROVIDERS: PCP Internal Medicine; Visit Provider Orthopaedic Surgery
DX: M75.102 Unspecified rotator cuff tear or rupture of left shoulder, not specified as traumatic (principal)
CPT/HCPCS: 99213

== ENCOUNTER → 2024-02-18 08:47 | Outpatient (BNVA) | payer MEDICARE, SELFPAY | PROVIDERS: PCP Internal Medicine; Visit Provider Orthopaedic Surgery | DX: M75.102 Unspecified rotator cuff tear or rupture of left shoulder, not specified as traumatic (principal) | CPT/HCPCS: 99212 ==

== ENCOUNTER 2024-04-22 11:31 | Outpatient (REF) | payer MEDICARE, SELFPAY ==
[2024-04-22 11:36] LABS: MANUAL DIFF FLAG NO
[2024-04-22 12:02] LABS: Basophils Percent Auto 0.8 % (0-2); Eosinophils Absolute Auto 0.1 X10*3/uL (0.0-0.4); Eosinophils Percent Auto 2.9 % (0-4); Hematocrit 38.5 % (42.0-52.0); Hemoglobin 13.1 g/dl (14.0-18.0); Imm Gran Abs Auto 0.01 X10*3/uL (0.00-0.03); Imm Gran Pct Auto 0.3 % (0.0-0.4); Lymphocytes Absolute Auto 1.2 X10*3/uL (1.2-4.9); Lymphocytes Percent Auto 32.3 % (20-40); Mean Corpuscular Hemoglobin 31.7 pg (27.0-33.0); Mean Corpuscular Volume 93.2 fL (80.0-98.0); Mean Platelet Volume 11.7 fL (9.4-12.4); Monocytes Absolute Auto 0.5 X10*3/uL (0.1-1.2); Monocytes Percent Auto 12.5 % (2-11); Neutrophils Percent Auto 51.2 % (45-73); Platelet Count 184 X10*3/uL (160-400); Red Blood Count 4.13 X10*6/uL (4.60-5.80); Red Cell Distribution Width 11.9 % (11.0-16.0); White Blood Count 3.8 X10*3/uL (4.8-10.8)
[2024-04-22 12:03] LABS: Appearance Urine Clear; Color Urine Yellow; Glucose Urine UA Negative (Negative); Leukocyte Esterase Urine Negative (Negative); Nitrite Urine Negative (Negative); PH 5.5 (5.0-9.0); Urine Blood Negative (Negative); Urine Ketones Negative (Negative); Urine Protein Negative (Neg-Trace)
[2024-04-22 12:11] LABS: Bacteria Urine None Seen (None Seen); Hyaline Casts Urine 0-2 /LPF (0-2); RBC Urine 0-2 /HPF (0-2); Squamous Epithelial Cell Urine 0-2 /HPF (0-2); WBC Urine 0-5 /HPF (0-5)
[2024-04-22 12:41] LABS: PSA,Total (Free>4and<10) 2.25 ng/mL (0.00-4.00)
[2024-04-22 13:00] LABS: Alanine Aminotransferase 21 U/L (0-40); Albumin Level 3.7 g/dL (3.5-5.0); Alkaline Phosphatase 78 U/L (39-117); Anion Gap 12 (12-20); Aspartate Amino Transferase 24 U/L (5-37); Bilirubin Total 0.4 mg/dL (0.0-1.0); Blood Urea Nitrogen 13 mg/dL (9-16); Calcium 9.3 mg/dL (8.4-10.2); Carbon Dioxide 29 mmol/L (22-29); Chloride 105 mmol/L (96-108); Cholesterol 166 mg/dL (<200); Estimated Glomerular Filt Rate > 60; Glucose Fasting 94 mg/dL (60-99); HDL Cholesterol 63 mg/dL (>40); LDL Cholesterol Calculated 95 mg/dL (<100); Potassium 4.1 mmol/L (3.3-5.1); Sodium 142 mmol/L (135-145); Total Protein 6.9 g/dL (6.5-8.0); Triglycerides 44 mg/dL (<150)
== END 2024-04-22 11:32 | disposition home or self-care (01) ==
LOC: HO.LNP 11:31
PROVIDERS: Visit Provider Internal Medicine
DX: Z00.00 Encounter for general adult medical examination without abnormal findings (principal); N40.0 Benign prostatic hyperplasia without lower urinary tract symptoms; D70.9 Neutropenia, unspecified; I10 Essential (primary) hypertension; Z12.5 Encounter for screening for malignant neoplasm of prostate
CPT/HCPCS: 80053; 80061; 81001; 84153; 85025

== ENCOUNTER 2024-12-26 09:57 | Outpatient (AMB) | payer MEDICARE, SELFPAY ==
[2024-12-26 10:03] VITALS: BP 114/74; PULSE 65; BMI 22.8
--- NOTE | 2024-12-26 10:03 | MHC.OFFVIS ---
Vital Signs 12/26/24 10:03 Height 5 ft 8 in Weight 149 lb 14.629 oz BMI 22.8 BP 114/74 Blood Pressure Location Lt brachial Position Sitting Pulse 65 Intake Visit Reasons: r/s 12/13/24 1 yr followup w/ekg Intake Note: 1 year follow-up with ekg feeling good c/o joint pain so only taking statin 3x a week Competitive Intelligence Analyst Required: No Allergies Penicillins (PENICILLINS) Allergy (Unknown, Verified 02/18/24 08:52) UNKNOWN Medication List - Last Reconciled 12/26/24 by Jens Murdock MD amlodipine 5 mg PO DAILY apixaban (Eliquis) 5 mg PO BID 90 days atorvastatin (Lipitor) 40 mg PO .3 times a week metoprolol succinate ER 50 mg PO DAILY tamsulosin 0.4 mg PO DAILY HPI Comments Details: Rigoberto comes for follow-up. He has been doing very well from cardiac perspective. He said he remains active and walks in the [place] for couple of miles without any symptoms. No exertional chest pain or shortness of breath. No orthopnea, PND, leg edema. Denies any prolonged palpitation irregular heartbeat. Bleeding issues or neurologic events. Takes all his medications. He is currently taking statins only half a dose 3 times a week due to diffuse muscle and joint aches. Says doing that has improved his muscle pain. His last LDL is 95 mg/dL. [facility] Medical History CAD (coronary artery disease) Hypertension Hyperlipidemia Paroxysmal atrial fibrillation Surgical History Status post percutaneous transluminal coronary angioplasty Family History Mother No problems noted. Father No problems noted. Social History Household Members: Spouse Housing: House Do you presently have visiting nurse or other home services: No Alcohol intake: current Alcohol intake frequency: holidays/special occasions only Alcohol type: beer and hard liquor Patient Tobacco Use Status: Former Tobacco user service: No Current occupational status: retired Current occupation: Left Handed Review of Systems Const Denies chills, Denies fatigue, Denies fever(s), Denies frequent falls, Denies weakness, Denies weight gain and Denies weight loss ENT Denies dizziness Card Denies chest pain, Denies leg edema, Denies lightheadedness, Denies palpitations, Denies dyspnea, Denies dyspnea on exertion, Denies orthopnea and Denies other (loss of consciousness) Resp Denies cough, Denies dyspnea and Denies dyspnea on exertion GI Denies hematochezia and Denies change in stool character Musc Denies abnormal gait, Denies muscle weakness, Denies numbness, Denies radiating pain into limb and Denies tingling Neuro Denies abnormal gait, Denies dizziness, Denies frequent falls, Denies numbness, Denies tingling and Denies weakness Endo Denies fatigue and Denies palpitations Physical Exam Vital Signs: Last Vital Signs Pulse 65 12/26/24 10:03 BP 114/74 12/26/24 10:03 BMI result Body Mass Index 22.8 Const General: cooperative, healthy appearing, comfortable, no acute distress, alert, awake and anxious Nutritional Appearance: thin Orientation/consciousness: patient oriented x3 Limitations: no limitations Eyes General: appearance normal, both eyes and all related structures Neck Neck: Yes normal visual inspection, Yes trachea midline, Yes supple and Yes no JVD Carotids: other ( No carotid bruit) Chest Chest palpation & inspection: normal inspection of the chest Resp Effort & Inspection: normal respiratory effort Auscultation: clear to auscultation bilaterally Cardio Jugular venous distension: no JVD Palpation: normal PMI Rate: regular rate Rhythm: regular rhythm Heart sounds: S1 normal heart sound present, S2 normal heart sound present and Other heart sounds present ( S4 present) GI Inspection: Yes scaphoid Auscultation: normal bowel sounds Skin General skin exam: no rashes or lesions noted and ecchymosis Neuro General: patient oriented x3 and no focal motor deficits Extrem General: Yes no clubbing, cyanosis or edema Psych Appearance: grossly normal Affect: Anxious affect present Office Procedures EKG Details: EKG shows normal sinus rhythm normal EKG 19721-[id number], Complete Assessment & Plan Assessment & Plan (1) CAD (coronary artery disease): Comment: No significant coronary artery disease but mid LAD bridge on cardiac catheterization Code(s): I25.10 - Atherosclerotic heart disease of [place] coronary artery without angina pectoris Category: Medical Plan: Coronary disease with prior LAD intervention. Currently doing well with no current symptoms. Continue aggressive medical therapy. Currently on full oral anticoagulation with Eliquis and continue the same. Avoid aspirin therapy. Continue aggressive blood pressure control which is currently well optimized. His LDL is not well optimized have recommended start him on ezetimibe 10 mg daily with follow-up lipid panel in 3 months time. Target goal LDL less than 70 mg/dL. (2) Paroxysmal atrial fibrillation: Code(s): I48.0 - Paroxysmal atrial fibrillation Category: Medical Plan: Paroxysmal atrial fibrillation which has remained suppressed. Has done well with rhythm control approach will continue pursue rhythm control approach. Continue metoprolol therapy. Avoidance of stimulants was discussed. Currently on full oral anticoagulation Eliquis which is tolerating well. Semi annual renal function test should be pursued. Will follow up in the clinic in 1 year's time, sooner p.r.n.. Thank you for allowing me to partake in his care Orders: Orders Lipid Panel 3 Months I25.10 - Atherosclerotic heart disease of [place] coronary artery without angina pectoris Medications: New ezetimibe 10 mg PO DAILY 30 tabs 5RF Changed From atorvastatin (Lipitor) 40 mg PO DAILY 30 tabs 5RF To atorvastatin (Lipitor) 40 mg PO .3 times a week Coding Level of Care Code Est Pt Level 4 (90758) Complex EM visit Add On G2211 Diagnoses CAD (coronary artery disease) I25.10 Paroxysmal atrial fibrillation I48.0 CPT Codes EKG - CPT: 99844-Lvhrlzjvhjalxolwg, Complete ([id number])
--- OUTSIDE RECORDS SUMMARY | 2024-12-26 10:37 | XMS_ITS | Patient Health Record ---
Author Organization Jorge Castillo MD Address [address] [place], [place] [id number] Care Team Providers Care Research Asst Name Role Phone Jorge Castillo Primary Care Provider Allergies Allergen (clinical drug ingredient) Drug/Non Drug Allergy documented on EMR Reaction Allergy Type Onset Date Status Lipitor constipation Drug Allergy Acti ve Crestor myalgia Drug Allergy Active penicillin (uncoded) rash Allergy Active Results Component Value Reference Range Notes Complete Blood Count Auto Di ff Reviewed date:04/22/2024 12:49:02 PM Interpretation: Performing Lab:[facility], [address] [place] [phone] Notes/Report: White Blood Count 3.8 4.8-10.8 X10*3/uL [...] NRBC Abs Auto 0.000 0.0-0.012 X10*3/uL Comprehensive [place]. Panel Fa st Reviewed date:04/22/2024 05:10:31 PM Interpretation: Performing Lab:[facility], [address] [place] [phone] Notes/Report: Sodium 142 135-145 mmol/L Potassium 4.1 3.3-5.1 mmol/L Chloride 105 96-108 mmol/L Carbon Dioxide 29 22-29 mmol/L Anion Gap 12 12-20 Blood Urea Nitrogen 13 9-16 mg/dL Creatinine 0.74 0.5-1.4 mg/dL Estimated Glomerular Filt Rate > 60 NOTE: For -Citizen Of [place] individuals, multiply the result by 1.210. Chronic [...] Panel Reviewed date:04/22/2024 05:10:11 PM Interpretation: Performing Lab:[facility], [address] [place] [phone] Notes/Report: Triglycerides 44 <150 mg/dL Desirable Triglyceride: [...] (Free>4and<10) Reviewed date:04/22/2024 12:49:10 PM Interpretation: Performing Lab:[facility], [address] [place] [phone] Notes/Report: PSA,Total (Free>4and<10) 2.25 0.00-4.00 ng/mL A [...] t Reviewed date:04/22/2024 12:52:51 PM Interpretation: Performing Lab:[facility], [address], [place] [address] Notes/Report: [id number] Urine, Clean Catch Color Urine Yellow Appearance Urine Clear PH 5.5 5.0-9.0 Glucose Urine UA Negative Negative mg/dL Urine Blood Negative Negative Specific [place] - Urine 1.020 1.005-1.025 Urine Protein Negative Neg-Trace mg/dL Urine Ketones Negative Negative mg/dL Nitrite Urine Negative Negative Leukocyte Esterase Urine Negative Negative RBC Urine 0-2 0-2 /HPF WBC Urine 0-5 0-5 /HPF Squamous Epithelial Cell Urine 0-2 0-2 /HPF Bacteria Urine None Seen None Seen Hyaline Casts Urine 0-2 0-2 /LPF Occult Blood, Stool, Guaiac Reviewed date:04/29/2024 09:32:16 AM Interpretation:Negative Performing Lab: Notes/Report: Negative Occult Blood, Stool, Guaiac Neg Reason For Referral Reason left shoulder pain Diagnosis 1 Nontraumatic tear of left rotator cuff, unspecified tear extent (M75.102) Referral Organization Jorge Castillo MD Referring Provider First Name Jorge Referring Provider Last Name Jonathan Referring Provider Speciality Internal M edicine Referred Provider Romaine Castro Referred Provider Specialty Orthopedic S urgery General Notes Amaya Nash 01:29:46 PM EDT > notes and MRI report faxed. patient will be calling [facility] office for an appt , Amaya Nsah 02/02/2024 09:46:58 AM EDT > patiente is aware of his appt Referral Priority Routine Referral Appointment Date 02/18/2024 Medications Medication SIG (Take, Route, Frequency, Duration) Notes Start Date End Date Status Eliquis 5 MG as directed Orally bid Active Nystatin 483874 UNIT/GM 1 application Ex ternally Twice a day for 10 days 03/22/2021 Not-Taki ng Colcrys 0.6 MG 1 tablet Orally twic e a day for 10 Not-Taking Colchicine 0.6 MG 1 tablet Orally Once a day for 30 day(s) Not-Taking Lipitor 40 MG 1 tablet Orally Once a day Active Metoprolol Succinate ER 50 MG 1 tablet Orally Once a day Active amLODIPine Besylate 5 MG 1 tablet Orally Once a day Active Tamsulosin HCl 0.4 MG TAKE 1 CAPSULE BY MOUTH EVERY DAY for 30 Active Immunizations Vaccine Route Administration Date Status Comme nts Flu Vaccine IM Intramuscular 04/22/2012 Administ[facility] PPSV23 (Pnemovax) IM Intramuscular 09/13/2012 Administered Flu Vaccine IM Intramuscular 03/27/2013 Administered [facility] Flu Vaccine Unknown 05/01/2014 Administered [facility] Flu Vaccine IM Intramuscular 04/03/2015 Administered pt wa s given the high dose Flu at [facility] in [place] Prevnar 13 IM Intramuscular 04/03/2015 Administered pt rec ieved the vaccine at [facility] in [place] Flu Vaccine IM Intramuscular 04/02/2016 Administered [facility] PPSV23 (Pnemovax) Unknown 04/02/2016 Administered [facility] Flu Vaccine IM Intramuscular 04/05/2017 Administered pt wa s given the vaccine at [facility] in [place]. Influenza High Dose IM Intramuscular 03/28/2018 Administered pt was given th e vaccine at [facility] in [place]. Influenza High Dose IM Intramuscular 03/22/2019 Administered pt was given th e vaccine at [facility] in [facility]. Influenza High Dose IM Intramuscular 02/28/2020 Administered Covid Vaccine Unknown 08/28/2020 Administered Pfizer Covid Vaccine Unknown 09/18/2020 Administered Influenza High Dose Unknown 03/04/2021 Administered [facility] SARS-COV-2 Pfizer Unknown 04/08/2021 Administered Influenza High Dose Unknown 03/24/2022 Administered PPSV23 (Pnemovax) IM Intramuscular 10/23/2022 Administered Social History Alcohol Screen Question Answer Notes Did you [...] Never (0 point) Points 1 Interpretation Negative Problems Problem Type SNOMED Code ICD Code Onset Dates Problem Status W/U Status Risk Notes Problem 99445369 Prostatism (N40.0) Active confirmed Problem 10227539 Anxiety (F41.9) Active confirmed Problem 16716088 Essential hypertension (I10) Active confirmed Problem 229832997 History of coronary artery disease (Z86.79) Active confirmed Problem 534796309 Cervical disc disease (M50.90) Active confirmed Problem Coronary artery disease involving [place] coronary artery of [place] heart without angina pectoris (I25.10) Active confirmed Problem 361672139 Neutropenia, unspecified type (D70.9) Active confirmed Problem 527459043405596 Sciatica of right side (M54.31) Active confirmed Problem 99190223 Hydrocele, unspecified hydrocele type (N43.3) Active confirmed Problem 690373636 Arthritis of knee (M17.10) Active confirmed Problem 952869176 Paroxysmal A-fib (I48.0) Active confirmed Problem 15778783 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 Problem 968515899 Age-related incipient cataract of both eyes (H25.093) Active confirmed Problem 659480988 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) Active confirmed Problem 971690603 Age-related incipient cataract, unspecified laterality (H25.099) Active confirmed Problem 366482979 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 Problem 249511323 Nontraumatic tear of left rotator cuff, unspecified tear extent (M75.102) Active confirmed Vital Signs Blood pressure diastolic 60 mm Hg 10/31/2024 Height 68 in 10/31/2024 Blood pressure systolic 132 mm Hg 10/31/2024 Weight 154 lbs 10/31/2024 BMI 23.41 kg/m2 10/31/2024 Encounters Encounter Location Date Provider Diagnosis Jorge Castillo MD [address] [place] [id number] 04/22/2024 Jorge Castillo Blood tests for routine general physical examination Z00.00 ; Prostatism N40.0 ; Neutropenia, unspecified type D70.9 and Essential hypertension I10 Jorge Castillo MD [address] [place] [id number] 01/22/2024 Jorge Castillo Nontraumatic tear of left rotator cuff, unspecified tear extent M75.102 Jorge Castillo MD [address] [place] [id number] 04/29/2024 Jorge Castillo Coronary artery disease involving [place] coronary artery of [place] heart without angina pectoris I25.10 ; Annual physical exam Z00.00 ; Neutropenia, unspecified type D70.9 ; Essential hypertension I10 ; Paroxysmal A-fib I48.0 ; Prostatism N40.0 ; Colon cancer screening Z12.11 and Depression screening Z13.31 Jorge Castillo MD [address] [place] [id number] 10/31/2024 Jorge Castillo Paroxysmal A-fib I48.0 and Essential hypertension I10 Jorge Castillo MD [address] [place] [id number] 01/22/2024 Jorge Castillo MD [address] [place] [id number] 02/01/2024 Jorge Castillo MD [address] [place] [id number] 09/05/2024 Jorge Castillo Assessments Encounter Date Diagnosis (ICD Code) Assessment Notes Treatment Notes Treatment Clinical Notes Section Notes 04/22/2024 Blood tests for routine general physical examination (ICD-10 - Z00.00) 04/22/2024 Prostatism (ICD-10 - N40.0) 01/22/2024 Nontraumatic tear of left rotator cuff, unspecified tear extent (ICD-10 - M75.102) has gone to 8 weeks of physical therapy.pending diagnostic testing, THE ORDER HAS BEEN FAXED TO [employer] FOR SCHEDULING 04/29/2024 Coronary artery disease involving [place] coronary artery of [place] heart without angina pectoris (ICD-10 - I25.10) not having any symptoms, will continue current regiment 04/29/2024 Annual physical exam (ICD-10 - Z00.00) labs reviewed and discussed with patient 10/31/2024 Paroxysmal A-fib (ICD-10 - I48.0) doing well. no problems 04/22/2024 Neutropenia, unspecified type (ICD-10 - D70.9) 04/29/2024 Neutropenia, unspecified type (ICD-10 - D70.9) stable, will continue to monitor 10/31/2024 Essential hypertension (ICD-10 - I10) 04/22/2024 Essential hypertension (ICD-10 - I10) 04/29/2024 Essential hypertension (ICD-10 - I10) well controlled, will continue current regiement 04/29/2024 Paroxysmal A-fib (ICD-10 - I48.0) on anticoag 04/29/2024 Prostatism (ICD-10 - N40.0) stable, will continue current regiment 04/29/2024 Colon cancer screening (ICD-10 - Z12.11) guaiac negative 04/29/2024 Depression screening (ICD-10 - Z13.31) negative screen Plan Of Treatment Pending Test Test Name Order Date Electrocardiogram (EKG) 07/22/2013 Electrocardiogram (EKG) 08/17/2015 Electrocardiogram (EKG) 09/24/2017 Electrocardiogram (EKG) 10/01/2018 MRI CERVICAL SPINE NO CONTRAST MRI SHOULDER LT NO CONTRAST 01/22/2024 Next Appt Details Provider Name:Jorge hancock, 04/27/2025 07:15:00 AM, [address] [place] [address], [address], [phone], Provider Name:Jorge vincentr, 05/05/2025 09:30:00 AM, [address] [place] [address], [address], [place], [place], [phone], Insurance Providers Payer Name Payer Address Payer Phone Subscriber Number Group Number Insured Name Patient Relationship to Insured Coverage Start Date Coverage End Date [employer] [facility] [address] [place] [phone] [id number] SMITH LOWE Self - patient is the insured Medical (General) History Medical History History ICD Code 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
== END 2024-12-26 10:27 | disposition home or self-care (01) ==
LOC: HO.HCS 09:58
PROVIDERS: PCP Internal Medicine; Visit Provider Internal Medicine Cardiovascular Disease
DX: I25.10 Atherosclerotic heart disease of native coronary artery without angina pectoris (principal); I48.0 Paroxysmal atrial fibrillation
CPT/HCPCS: 93010; 99214; G2211

== ENCOUNTER → 2024-12-26 09:57 | Outpatient (BNVA) | payer MEDICARE, SELFPAY | PROVIDERS: PCP Internal Medicine; Visit Provider Internal Medicine Cardiovascular Disease | DX: I25.10 Atherosclerotic heart disease of native coronary artery without angina pectoris (principal); I48.0 Paroxysmal atrial fibrillation; I10 Essential (primary) hypertension; E78.5 Hyperlipidemia, unspecified | CPT/HCPCS: 93005; 99212 ==

== ENCOUNTER 2025-04-27 11:00 | Outpatient (REF) | payer MEDICARE, SELFPAY ==
--- OUTSIDE RECORDS SUMMARY | 2023-11-10 11:45 | XMS_ITS ---
Author Organization Jorge Castillo MD Address [address] [place] [phone] Care Team Providers Care Entrepreneurship Program Director Name Role Phone Jorge Castillo Primary Care Provider [phone] REASON FOR VISIT CBACK AFTER MRI Encounters Encounter Location Date Provider Diagnosis Jorge Castillo MD [address] [facility] [address] [place] [phone] 11/10/2023 Jorge Castillo Plan Of Treatment Next Appt Details Provider Name:Jorge Paige ier, 05/05/2025 09:30:00 AM, [address], Suite [facility], [place], [place], [phone], Progress Notes * NABILA LOWEOB:1945 ([age] yo M)Acc No.[id number]:11/10/2023 Patient: SMITH JOHNSON Provider: Eric Castillo MD :1945 A ge:78 Y S ex:Male Date:11/10/2023 Address:[address] [id number] Subjective: * Chief Complaints: * 1 . CBACK AFTER MRI. * Medical History: Objective: * Vitals: Assessment: Plan: * Treatment: * * The named appointment provid er may or may not be the originator of this progress note, and it is not deemed complete until electronically signed by the appointment provider. Sign off status: Pending * Provider: Eric Castillo MD Date: 0 11/10/2023 Generated for Bhupendra holguin/Khushbu/Oh on: 06/27/2024 01:27 PM EST
--- OUTSIDE RECORDS SUMMARY | 2024-01-22 05:45 | XMS_ITS ---
Author Organization Jorge Castillo MD Address [address] [place] [phone] Care Team Providers Care Window Shade Ring Sewer Name Role Phone Jorge Castillo Primary Care Provider Allergies Allergen (clinical drug ingredient) Drug/Non Drug Allergy documented on EMR Reaction Allergy Type Onset Date Status atorvastatin Lipitor constipation Drug Allergy A ctive rosuvastatin Crestor myalgia Drug Allergy Acti ve penicillin (uncoded) rash Allergy Active REASON FOR VISIT Finished PT wants MRI left shoulder Medications Medication SIG (Take, Route, Frequency, Duration) Notes Start Date End Date Status Nystatin 017167 UNIT/GM 1 application Ex ternally Twice a day for 10 days 03/22/2021 Not-Taki ng Colchicine 0.6 MG 1 tablet Orally Once a day for 30 day(s) Not-Taking Colcrys 0.6 MG 1 tablet Orally twic e a day for 10 Not-Taking Tamsulosin HCl 0.4 MG TAKE 1 CAPSULE BY MOUTH EVERY DAY for 30 Active amLODIPine Besylate 5 MG 1 tablet Orally Once a day Active Lipitor 40 MG 1 tablet Orally Once a day for 30 day(s) Active Metoprolol Succinate ER 50 MG 1 tablet Orally Once a day Active Eliquis 5 MG as directed Orally bid Active Problems Problem Type SNOMED Code ICD Code Onset Dates Problem Status W/U Status Risk Notes Problem 259008215 Nontraumatic tea r of left rotator cuff, unspecified tear extent (M75.102) Active confirmed Vital Signs Blood pressure systolic 128 mm Hg 01/22/20 24 Blood pressure diastolic 56 mm Hg 024 Height 68 in 01/22/2024 Weight 150 lbs 01/22/2024 BMI 22.80 kg/m2 01/22/2024 weight is down 9 pounds [facility] 10-29-23 Encounters Encounter Location Date Provider Diagnosis Jorge Castillo MD [address] [place] [address] [place] [phone] 01/22/2024 Jorge Castillo Nontraumatic tear of left rotator cuff, unspecified tear extent M75.102 Assessments Encounter Date Diagnosis (ICD Code) Assessment Notes Treatment Notes Treatment Clinical Notes Section Notes 01/22/2024 Nontraumatic tear of left rotator cuff, unspecified tear extent (ICD-10 - M75.102) has gone to 8 weeks of physical therapy.pending diagnostic testing, THE ORDER HAS BEEN FAXED TO [facility] FOR SCHEDULING Plan Of Treatment Treatment Notes Assessment Notes Nontraumatic tear of left ro tator cuff, unspecified tear extent has gone to 8 weeks of physical therapy.pending diagnostic testing, THE ORDER HAS BEEN FAXED TO [facility] FOR SCHEDULING Pending Test Test Name Order Date MRI SHOULDER LT NO CONTRAST 01/22/2024 Next Appt Details Follow Up: after mri, Reason : Provider Name:Jorge Paige iebutch, 05/05/2025 09:30:00 AM, [address] [place] [address], [address], [place], [place], [phone], Progress Notes * NABILA LOWEOB:1945 ([age] yo M)Acc No.[id number]:01/22/2024 Progress Notes Patient: SMITH JOHNSON Provider: Eric Castillo MD :1945 A ge:78 Y S ex:Male Date:01/22/2024 Address:[address] [place] [address] [id number] Subjective: * Chief Complaints: * F inished PT wants MRI left shoulder * HPI: S ymptom(s): patienti is a 78 yo male has been to physical therapy for shoulder. still having a lot of pain. a lot of the exercises are hurting/ losing strength in left arm. * ROS: G eneral/Constitutional: Denies C hills. D enies F atigue. D enies F ever. D enies H eadache. E NT: Patient denies d ecreased sense of smell , any loss of taste , sore throat. D enies S ore throat. R espiratory: Denies C ough. D enies S hortness of breath at rest. D enies S hortness of breath with exertion. G astrointestinal: Denies D iarrhea. D enies N ausea. M usculoskeletal: Patient denies m uscle aches. P eripheral Vascular: Patient denies r ed and blue toes. * Medical History: * Surgical History: * Hospitalization/Major Diagno stic Procedure: * Medications: T akingLipitor 40 MG Tablet 1 tablet Orally Once a dayamLODIPine Besylate 5 MG Tablet 1 tablet Orally Once a dayEliquis 5 MG Tablet as directed Orally bidMetoprolol Succinate ER 50 MG Tablet Extended Release 24 Hour 1 tablet Orally Once a dayTamsulosin HCl 0.4 MG Capsule TAKE 1 CAPSULE BY MOUTH EVERY DAY Taking Lipitor 40 MG Tablet 1 tablet Orally Once a dayTaking amLODIPine Besylate 5 MG Tablet 1 tablet Orally Once a dayTaking Eliquis 5 MG Tablet as directed Orally bidTaking Metoprolol Succinate ER 50 MG Tablet Extended Release 24 Hour 1 tablet Orally Once a dayTaking Tamsulosin HCl 0.4 MG Capsule TAKE 1 CAPSULE BY MOUTH EVERY DAY Not-Taking/PRNNystatin 888252 UNIT/GM Cream 1 application Externally Twice a dayColcrys 0.6 MG Tablet 1 tablet Orally twice a dayColchicine 0.6 MG Tablet 1 tablet Orally Once a dayNot-Taking/PRN Nystatin 950600 UNIT/GM Cream 1 application Externally Twice a dayNot-Taking/PRN Colcrys 0.6 MG Tablet 1 tablet Orally twice a dayNot-Taking/PRN Colchicine 0.6 MG Tablet 1 tablet Orally Once a dayDiscontinuedPravastatin Sodium 20 MG Tablet TAKE 1 TABLET BY MOUTH EVERY DAY Medication List reviewed and reconciled with the patientDiscontinued Pravastatin Sodium 20 MG Tablet TAKE 1 TABLET BY MOUTH EVERY DAY Medication List reviewed and reconciled with the patient * Allergies: p enicillin: rashLipitor: constipationCrestor: myalgiayes[Allergies Verified] Objective: * Vitals: H t: 68, Wt:150, BMI:22.80, BP:128/56 weight is down 9 pounds since 10-29-23. * Examination: G eneral Examination: GENERAL APPEARANCE: alert, well hydrated, in no distress . MUSCULOSKELETAL: has pain in shoulder with elevating it at 90 degrees. has lost about 50% of strength there.. Assessment: * Assessment: 1. N ontraumatic tear of left rotator cuff, unspecified tear extent - M75.102 (Primary) Plan: * Treatment: * Procedure Codes: * Follow Up: a fter mri * * Sign off status: Completed true * Provider: Eric Castillo MD Date: 0 01/22/2024 Generated for Bhupendra holguin/Khushbu/Pedro Luissmitting on: 06/27/2024 01:27 PM EST History and Physical Notes * HPI (History of Present Illness) Category Sub-Category Detail Notes Category Not es Symptom(s) patienti is a [age] yo male has been to physical therapy for shoulder. still having a lot of pain. a lot of the exercises are hurting/ losing strength in left arm. Examination Category Sub-Category Detail Notes Category Not es General Examination GENERAL APPEARANCE: alert, w ell hydrated, in no distress MUSCULOSKELETAL: has pain in shoulder with elevating it at 90 degrees. has lost about 50% of strength there.
--- OUTSIDE RECORDS SUMMARY | 2024-01-22 06:13 | XMS_ITS ---
Author Organization Jorge Castillo MD Address [address] [place] [phone] Care Team Providers Care Disability Benefits Specialist Name Role Phone oJrge Castillo Primary Care Provider REASON FOR VISIT MRI Encounters Encounter Location Date Provider Diagnosis Jorge Castillo MD [address] [facility] [address] [place] [phone] 01/22/2024 Jorge Castillo Plan Of Treatment Next Appt Details Provider Name:Jorge Paige ier, 05/05/2025 09:30:00 AM, [address], [address] [place] [address], [phone], Progress Notes * ABNER LOWE:1945 ([age] yo M)Acc No.[id number]:01/22/2024 Patient: SMITH JOHNSON :1945 A ge:78 Y S ex:Male Address:[address] [place], [address] * true * Date: Generated for Printi ng/Faxing/eTransmitting on: 1 06/27/2024 01:25 PM EST
--- OUTSIDE RECORDS SUMMARY | 2024-02-01 08:24 | XMS_ITS ---
Author Organization Jorge Castillo MD Address [address] [place] [phone] Care Team Providers Care Press Catcher Name Role Phone Jorge Castillo Primary Care Provider [phone] REASON FOR VISIT appt Encounters Encounter Location Date Provider Diagnosis Jorge Castillo MD [address] [facility] [address] [place] [phone] 02/01/2024 Jorge Castillo Plan Of Treatment Next Appt Details Provider Name:Jorge Paige ier, 05/05/2025 09:30:00 AM, [address] [facility], Suite [facility], [place], [phone], Progress Notes * ABNER LOWE:1945 ([age] yo M)Acc No.[id number]:02/01/2024 Patient: SMITH JOHNSON :1945 A ge:78 Y S ex:Male Address:[address] [place], [address] * true * Date: Generated for Printi ng/Faxing/eTransmitting on: 1 06/27/2024 01:26 PM EST
--- OUTSIDE RECORDS SUMMARY | 2024-02-08 12:00 | XMS_ITS ---
Author Organization Jorge Castillo MD Address [address] [place] [phone] Care Team Providers Care Corporate Legal Assistant Name Role Phone Jorge Castillo Primary Care Provider [phone] REASON FOR VISIT CBACK AFTER MRI Encounters Encounter Location Date Provider Diagnosis Jorge Castillo MD 10 [facility] [address] [place] [phone] 02/08/2024 Jorge Castillo Plan Of Treatment Next Appt Details Provider Name:Jorge Paige ier, 05/05/2025 09:30:00 AM, [address], Suite [facility], [place], [place], [phone], Progress Notes * NABILA LOWEOB:1945 ([age] yo M)Acc No.[id number]:02/08/2024 Patient: Celsa PATELOdalis SMITH Provider: Eric Castillo MD :1945 A ge:78 Y S ex:Male Date:02/08/2024 Address:[address] [id number] Subjective: * Chief Complaints: * 1 . CBACK AFTER MRI. * Medical History: Objective: * Vitals: Assessment: Plan: * Treatment: * * The named appointment provid er may or may not be the originator of this progress note, and it is not deemed complete until electronically signed by the appointment provider. Sign off status: Pending * Provider: Eric Castillo MD Date: 0 02/08/2024 Generated for Bhupendra holguin/Khushbu/Oh on: 06/27/2024 01:26 PM EST
--- OUTSIDE RECORDS SUMMARY | 2024-04-22 02:00 | XMS_ITS ---
Author Organization Jorge Castillo MD Address [address] [place], [place] [phone] Care Team Providers Care Extract Mixer Name Role Phone Jorge Castillo Primary Care Provider Results Component Value Reference Range Notes Complete Blood Count Auto Di ff Reviewed date:04/22/2024 12:49:02 PM Interpretation: Performing Lab:[facility], [address] [place] [phone] Notes/Report: White Blood Count 3.8 4.8-10.8 X10*3/uL Red Blood Count 4.13 4.60-5.80 X10*6/uL Hemoglobin 13.1 14.0-18.0 g/dl Hematocrit 38.5 42.0-52.0 % Mean Corpuscular Volume 93.2 80.0-98.0 fL Mean Corpuscular Hemoglobin 31.7 27.0-33.0 pg Mean Corpuscular HGB Conc 34.0 31.0-36.0 g/dl Red Cell Distribution Width 11.9 11.0-16.0 % Platelet Count 184 160-400 X10*3/uL Mean Platelet Volume 11.7 9.4-12.4 fL Neutrophils Percent Auto 51.2 45-73 % Imm Gran Pct Auto 0.3 0.0-0.4 % Lymphocytes Percent Auto 32.3 20-40 % Monocytes Percent Auto 12.5 2-11 % Eosinophils Percent Auto 2.9 0-4 % Basophils Percent Auto 0.8 0-2 % NRBC Pct Auto 0.0 0.0-0.2 /100WBC Neutrophils Absolute Auto 2.0 2.0-8.3 x10*3/u L Imm Gran Abs Auto 0.01 0.00-0.03 X10*3/uL Lymphocytes Absolute Auto 1.2 1.2-4.9 X10*3/u L Monocytes Absolute Auto 0.5 0.1-1.2 X10*3/uL Eosinophils Absolute Auto 0.1 0.0-0.4 X10*3/u L Basophils Absolute Auto 0.0 0.0-0.2 X10*3/uL NRBC Abs Auto 0.000 0.0-0.012 X10*3/uL Comprehensive [place]. Panel Fa st Reviewed date:04/22/2024 05:10:31 PM Interpretation: Performing Lab:[facility], [address] [place] [phone] Notes/Report: Sodium 142 135-145 mmol/L Potassium 4.1 3.3-5.1 mmol/L Chloride 105 96-108 mmol/L Carbon Dioxide 29 22-29 mmol/L Anion Gap 12 12-20 Blood Urea Nitrogen 13 9-16 mg/dL Creatinine 0.74 0.5-1.4 mg/dL Estimated Glomerular Filt Rate > 60 NOTE: For -[place] individuals, multiply the result by 1.210. Chronic Kidney Disease: Estimated GFR < 60 mL/min/1.73m2 Severe Kidney Disease: Estimated GFR < 15 mL/min/1.73m2 Glucose Fasting 94 60-99 mg/dL Calcium 9.3 8.4-10.2 mg/dL Bilirubin Total 0.4 0.0-1.0 mg/dL Aspartate Amino Transferase 24 5-37 U/L Alanine Aminotransferase 21 0-40 U/L Total Protein 6.9 6.5-8.0 g/dL Albumin Level 3.7 3.5-5.0 g/dL Alkaline Phosphatase 78 39-117 U/L Lipid Panel Reviewed date:04/22/2024 05:10:11 PM Interpretation: Performing Lab:[facility], [address] [place] [phone] Notes/Report: Triglycerides 44 <150 mg/dL Desirable Triglyceride: less than 150 mg/dL Borderline High Triglyceride 150-199 mg/dL High Triglyceride: 200-499 mg/dL Very High Triglyceride: greater than or equal to 5OO mg/dL Cholesterol 166 <200 mg/dL Desirable Cholesterol: less than 200 mg/dL Borderline High Cholesterol: 200-239 mg/dL High Cholesterol: greater than 239 mg/dL LDL Cholesterol Calculated 95 <100 mg/dL Desirable LDL: less than 100 mg/dL Near Optimal/Above Optimal LDL: 110-129 mg/dL Borderline High LDL: 130-159 mg/dL High LDL: 160-189 mg/dL Very High LDL: greater than or equal to 190 mg/dL HDL Cholesterol 63 >40 mg/dL Desirable HDL: greater than 40 mg/dL Note: This HDL assay may give artificially low results in patients with liver disease. PSA,Total (Free>4and<10) Reviewed date:04/22/2024 12:49:10 PM Interpretation: Performing Lab:[facility], [address] [place] [phone] Notes/Report: PSA,Total (Free>4and<10) 2.25 0.00-4.00 ng/mL A Free PSA was not performed: The percentage of Free PSA can be used to enhance the differentiation of prostate cancer from benign prostatic disease in subjects whose PSA levels are between 4.0 and 10.0 ng/mL. For subjects whose PSA levels are below 4.0 or above 10.0 ng/mL, the risk of prostate cancer is determined on the basis of the PSA alone. Therefore the % Free PSA is recommended only for those subjects whose PSA levels are between 4.0 and 10.0 ng/mL. PSA methodology: Greer Alinity i Chemiluminescent Microparticle Immunoassay (CMIA) UA ClnCatch+Micro w/rflx Cul t Reviewed date:04/22/2024 12:52:51 PM Interpretation: Performing Lab:[facility], [address] [place] [phone] Notes/Report: [id number] Urine, Clean Catch Color Urine Yellow Appearance Urine Clear PH 5.5 5.0-9.0 Glucose Urine UA Negative Negative mg/dL Urine Blood Negative Negative Specific [place] - Urine 1.020 1.005-1.025 Urine Protein Negative Neg-Trace mg/dL Urine Ketones Negative Negative mg/dL Nitrite Urine Negative Negative Leukocyte Esterase Urine Negative Negative RBC Urine 0-2 0-2 /HPF WBC Urine 0-5 0-5 /HPF Squamous Epithelial Cell Urine 0-2 0-2 /HPF Bacteria Urine None Seen None Seen Hyaline Casts Urine 0-2 0-2 /LPF REASON FOR VISIT fasting yearly labs Encounters Encounter Location Date Provider Diagnosis Jorge Castillo MD [address] [facility] [address] [place] [phone] 04/22/2024 Jorge Castillo Blood tests for routine general physical examination Z00.00 ; Prostatism N40.0 ; Neutropenia, unspecified type D70.9 and Essential hypertension I10 Assessments Encounter Date Diagnosis (ICD Code) Assessment Notes Treatment Notes Treatment Clinical Notes Section Notes 04/22/2024 Blood tests for routine general physical examination (ICD-10 - Z00.00) 04/22/2024 Prostatism (ICD-10 - N40.0) 04/22/2024 Neutropenia, unspecified type (ICD-10 - D70.9) 04/22/2024 Essential hypertension (ICD-10 - I10) Plan Of Treatment Next Appt Details Provider Name:Jorge Paige ier, 05/05/2025 09:30:00 AM, [facility], Suite [facility], [place], [place], [phone], Progress Notes * NABILA LOWEOB:1945 ([age] yo M)Acc No.[id number]:04/22/2024 Progress Note Patient: SMITH JOHNSON Provider: Eric Castillo MD :1945 A ge:78 Y S ex:Male Date:04/22/2024 [facility] Subjective: * Chief Complaints: * 1 . Fasting yearly labs. * Medical History: Objective: * Vitals: Assessment: * Assessment: 1. B lood tests for routine general physical examination - Z00.00 (Primary) 2 .?Prostatism - N40.0 3 . N eutropenia, unspecified type - D70.9 ?4. E ssential hypertension - I10 Plan: * Treatment: 2. P rostatism L AB: Complete Blood Count Auto Diff (Collection Date & Time - 04/22/2024 07:00 AM) L AB: Comprehensive [place]. Panel Fast (Collection Date & Time - 04/22/2024 07:00 AM) L AB: Lipid Panel (Collection Date & Time - 04/22/2024 07:00 AM) L AB: PSA,Total (Free>4and<10) (Collection Date & Time - 04/22/2024 07:00 AM) L AB: UA ClnCatch+Micro w/rflx Cult (Collection Date & Time - 04/22/2024 07:00 AM) 3. N eutropenia, unspecified type L AB: Complete Blood Count Auto Diff (Collection Date & Time - 04/22/2024 07:00 AM) L AB: Comprehensive [place]. Panel Fast (Collection Date & Time - 04/22/2024 07:00 AM) L AB: Lipid Panel (Collection Date & Time - 04/22/2024 07:00 AM) L AB: PSA,Total (Free>4and<10) (Collection Date & Time - 04/22/2024 07:00 AM) L AB: UA ClnCatch+Micro w/rflx Cult (Collection Date & Time - 04/22/2024 07:00 AM) 4. E ssential hypertension L AB: Complete Blood Count Auto Diff (Collection Date & Time - 04/22/2024 07:00 AM) L AB: Comprehensive [place]. Panel Fast (Collection Date & Time - 04/22/2024 07:00 AM) L AB: Lipid Panel (Collection Date & Time - 04/22/2024 07:00 AM) L AB: PSA,Total (Free>4and<10) (Collection Date & Time - 04/22/2024 07:00 AM) L AB: UA ClnCatch+Micro w/rflx Cult (Collection Date & Time - 04/22/2024 07:00 AM) * Procedure Codes: 3 6415 VENIPUNCT, ROUTINE* * * The named appointment provid er may or may not be the originator of this progress note, and it is not deemed complete until electronically signed by the appointment provider. Sign off status: Pending * Provider: Eric Castillo MD Date: 06/22/2023 Generated for Bhupendra holguin/Khushbu/Oh on: 06/27/2024 01:27 PM EST
--- OUTSIDE RECORDS SUMMARY | 2024-04-29 03:30 | XMS_ITS ---
Author Organization Jorge Castillo MD Address [address] [place] [phone] Care Team Providers Care [employer] Sewer Name Role Phone Jorge Castillo Primary Care Provider Allergies Allergen (clinical drug ingredient) Drug/Non Drug Allergy documented on EMR Reaction Allergy Type Onset Date Status atorvastatin Lipitor constipation Drug Allergy A ctive rosuvastatin Crestor myalgia Drug Allergy Acti ve penicillin (uncoded) rash Allergy Active Results Component Value Reference Range Notes Occult Blood, Stool, Guaiac Reviewed date:04/29/2024 09:32:16 AM Interpretation:Negative Performing Lab: Notes/Report: Negative Occult Blood, Stool, Guaiac Neg REASON FOR VISIT annual visit Medications Medication SIG (Take, Route, Frequency, Duration) Notes Start Date End Date Status Colcrys 0.6 MG 1 tablet Orally twic e a day for 10 Not-Taking Tamsulosin HCl 0.4 MG TAKE 1 CAPSULE BY MOUTH EVERY DAY Active Colchicine 0.6 MG 1 tablet Orally Once a day for 30 day(s) Not-Taking Metoprolol Succinate ER 50 MG 1 tablet Orally Once a day Active Eliquis 5 MG as directed Orally bid Active amLODIPine Besylate 5 MG 1 tablet Orally Once a day Active Lipitor 40 MG 1 tablet Orally Once a day Active Nystatin 772701 UNIT/GM 1 application Ex ternally Twice a day for 10 days 03/22/2021 Not-Jorgito holguin Social History Tobacco Use: Social History Observation Description Date Details (start date - stop date) Former Smoker NA - NA Tobacco Use/Smoking Question Answer Notes Patient is a former smoker How long has it been since y ou last smoked? > 10 years Additional Findings: Tobacco Non-User Fo rmer smoker, currently using no form of tobacco Alcohol Screen Question Answer Notes Did you have a drink contain ing alcohol in the past year? Yes How often did you have a dri nk containing alcohol in the past year? Monthly or less (1 point) How many drinks did you have on a typical day when you were drinking in the past year? 1 or 2 drinks (0 point) How often did you have 6 or more drinks on one occasion in the past year? 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.10 ; Annual physical exam Z00.00 ; Neutropenia, unspecified type D70.9 ; Essential hypertension I10 ; Paroxysmal A-fib I48.0 ; Prostatism N40.0 ; Colon cancer screening Z12.11 and Depression screening Z13.31 Assessments Encounter Date Diagnosis (ICD Code) Assessment Notes Treatment Notes Treatment Clinical Notes Section Notes 04/29/2024 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 (ICD-10 - I25.10) not having any symptoms, will continue current regiment 04/29/2024 Annual physical exam (ICD-10 - Z00.00) labs reviewed and discussed with patient 04/29/2024 Neutropenia, unspecified type (ICD-10 - D70.9) stable, will continue to monitor 04/29/2024 Essential hypertension (ICD-10 - I10) well controlled, will continue current regiement 04/29/2024 Paroxysmal A-fib (ICD-10 - I48.0) on anticoag 04/29/2024 Prostatism (ICD-10 - N40.0) stable, will continue current regiment 04/29/2024 Colon cancer screening (ICD-10 - Z12.11) guaiac negative 04/29/2024 Depression screening (ICD-10 - Z13.31) negative screen Plan Of Treatment Medication Medication Name Sig Start Date Stop Date Notes Tamsulosin HCl 0.4 MG TAKE 1 CAPSULE BY MOUTH EVERY DAY Metoprolol Succinate ER 50 MG 1 tablet Orally Once a day Eliquis 5 MG as directed Orally bid amLODIPine Besylate 5 MG 1 tablet Orally Once a day Lipitor 40 MG 1 tablet Orally Once a day Treatment Notes Assessment Notes Coronary artery disease invo lving lower sioux coronary artery of lower si[place] heart without angina pectoris not having any symptoms, will continue current regiment Annual physical exam labs reviewed and d iscussed with patient Neutropenia, unspecified type stable, wi ll continue to monitor Essential hypertension well controlled, will continue current regiement Paroxysmal A-fib on anticoag Prostatism stable, will continu e current regiment Colon cancer screening guaiac negative Depression screening negative screen Next Appt Details Provider Name:Jorge Paige ier, 05/05/2025 09:30:00 AM, [address] [place] [address], [address], [place], [place], [phone], Progress Notes * NABILA LOWEOB:1945 ([age] yo M)Acc No.[id number]:04/29/2024 Progress Notes Patient: SMITH JOHNSON Provider: Eric Castillo MD :1945 A ge:78 Y S ex:Male Date:04/29/2024 [id number] Subjective: * Chief Complaints: * A nnual visit * HPI: D epression Screening: PHQ-9 L ittle interest or pleasure in doing things N ot at all, F eeling down, depressed, or hopeless N ot at all, T rouble falling or staying asleep, or sleeping too much N ot at all, F eeling tired or having little energy N ot at all, P oor appetite or overeating N ot at all, F eeling bad about yourself or that you are a failure, or have let yourself or your family down N ot at all, T rouble concentrating on things, such as reading the newspaper or watching television N ot at all, M oving or speaking so slowly that other people could have noticed; or the opposite, being so fidgety or restless that you have been moving around a lot more than usual N ot at all, T houghts that you would be better off or of hurting yourself in some way N ot at all, T otal Score 0 . I nterpretation and Intervention D epression Screening Findings N egative, F ollow-Up for Depression : review of PHQ-9 found negative result, no follow-up needed. C ommunication Needs: Communication Needs D oes the patient have a hearing impairment N o, D oes the patient have a vision impairment? Y es, I f yes, what is the vision impairment? G lasses, D oes the patient have a cognition impairment? N o. F all Risk: History H ave you had any falls with injury in the past year? N o, H ave you had two or more falls in the past year? N o. S JULES Questions: SDOH Questions I n the past year have you been worried about losing housing? N o, I n the past year have you or any family members you live with been unable to get any of the following when it was really needed? Check all that apply: N one. S ymptom(s): patitapan is a 78 yo male here for annual visit with review of recent labs and follow up of chronic issues. * ROS: G eneral/Constitutional: Patient denies f atigue , headache. C hange in appetite?denies. C hills d enies. F ever d enies. O phthalmologic: Blurred vision d enies. D ischarge d enies. P ain d enies. E NT: Patient denies d ecreased sense of smell , any loss of taste , sore throat. D ecreased hearing d enies. S ore throat d enies. S wollen glands d enies. E ndocrine: Cold intolerance d enies. E xcessive thirst d enies. H eat intolerance d enies. W eight loss d enies. R espiratory: Cough d enies. S hortness of breath at rest d enies. S hortness of breath with exertion d enies. W heezing d enies. C ardiovascular: Chest pain at rest d enies. C hest pain with exertion?denies. I rregular heartbeat d enies. S hortness of breath d enies. ? G astrointestinal: Abdominal pain d enies. C hange in bowel habits d enies. D iarrhea d enies. N ausea d enies. R ectal bleeding d enies. V omiting d enies . G enitourinary: Blood in urine d enies. D ifficulty urinating d enies. F requent urination d enies. M usculoskeletal: Patient denies m uscle aches. P ainful joints d enies. W eakness d enies. P eripheral Vascular: Patient denies r ed and blue toes. S kin: Dry skin d enies. I tching d enies. D enies?Mole(s), changes in moles, new moles or any lesions of concern. D enies P hotosensitivity. R tatiana d enies. N eurologic: Dizziness d enies. F ainting d enies. H eadache?denies. * Medical History: * Surgical History: * Hospitalization/Major Diagno stic Procedure: * Family History: F ather: 89 yrs, diagnosed with Cancer. M other: 69 yrs. 1 brother(s) , 2 sister(s) . 2 son(s) . . Denies mental health/substance abuse family history, No pertinent family medical history, No pertinent family medical history. * Social History: T obacco Use: T obacco Use/Smoking P atient is a f ormer smoker, H ow long has it been since you last smoked? > 10 years, A dditional Findings: Tobacco Non-User F ormer smoker, currently using no form of tobacco. D rugs/Alcohol: A lcohol Screen D id you have a drink containing alcohol in the past year? Y es, H ow often did you have a drink containing alcohol in the past year? M onthly or less (1 point), H ow many drinks did you have on a typical day when you were drinking in the past year? 1 or 2 drinks (0 point), H ow often did you have 6 or more drinks on one occasion in the past year? N ever (0 point), P oints 1 , I nterpretation N egative. M iscellaneous: C affeine: yes, frequency:, 3-4 cups per day. Children: yes. no Community involvements. Exercise: yes, weights walking 3 times a week. Home smoke detector use: yes. Housing: owning. Living with: spouse. Marital status: . Occupation: weeks/months/years, Retired. Pets: none. no Travel outside of the [place]. * Medications: T akingLipitor 40 MG Tablet [...] 1 CAPSULE BY MOUTH EVERY DAY Not-Taking/PRNNystatin 235469 UNIT/GM Cream 1 application Externally Twice a dayColcrys 0.6 MG Tablet 1 tablet Orally twice a dayColchicine 0.6 MG Tablet 1 tablet Orally Once a dayMedication List reviewed and reconciled with the patientNot-Taking/PRN Nystatin 076288 UNIT/GM Cream 1 application Externally Twice a dayNot-Taking/PRN Colcrys 0.6 MG Tablet 1 tablet Orally twice a dayNot- Taking/PRN Colchicine 0.6 MG Tablet 1 tablet Orally Once a dayMedication List reviewed and reconciled with the patient * Allergies: p enicillin: rashLipitor: constipationCrestor: myalgiayes[Allergies Verified] Objective: * Vitals: H t: 68, Wt:153, BMI:23.26, BP:138/60 weight is up 3 pounds since 01-22-24. * P ast Orders: L ab:Lipid Panel (Order Date - 04/22/2024) (Collection Date - 04/22/2024) Value Reference Range Triglycerides 44 <150 - mg/dL Cholesterol 166 <200 - mg/dL LDL Cholesterol Calculated 95 <100 - mg/dL HDL Cholesterol 63 >40 - mg/dL L ab:PSA,Total (Free>4and<10) (Order Date - 04/22/2024) (Collection Date - 04/22/2024) Value Reference Range PSA,Total (Free>4and<10) 2.25 0.00-4.00 - ng/ mL L ab:UA ClnCatch+Micro w/rflx Cult (Order Date - 04/22/2024) (Collection Date - 04/22/2024) Value Reference Range Color Urine Yellow - Appearance Urine Clear - PH 5.5 5.0-9.0 - Glucose Urine UA Negative Negative - mg/dL Urine Blood Negative Negative - Specific [place] - Urine 1.020 1.005-1.025 - Urine Protein Negative Neg-Trace - mg/dL Urine Ketones Negative Negative - mg/dL Nitrite Urine Negative Negative - Leukocyte Esterase Urine Negative Negative - RBC Urine 0-2 0-2 - /HPF WBC Urine 0-5 0-5 - /HPF Squamous Epithelial Cell Urine 0-2 0-2 - /HP F Bacteria Urine None Seen None Seen - Hyaline Casts Urine 0-2 0-2 - /LPF L ab:Complete Blood Count Auto Diff (Order Date - 04/22/2024) (Collection Date - 04/22/2024) Value Reference Range White Blood Count 3.8 L 4.8-10.8 - X10*3/uL Red Blood Count 4.13 L 4.60-5.80 - X10*6/uL Hemoglobin 13.1 L 14.0-18.0 - g/dl Hematocrit 38.5 L 42.0-52.0 - % Mean Corpuscular Volume 93.2 80.0-98.0 - fL Mean Corpuscular Hemoglobin 31.7 27.0-33.0 - pg Mean Corpuscular HGB Conc 34.0 31.0-36.0 - g/ dl Red Cell Distribution Width 11.9 11.0-16.0 - % Platelet Count 184 160-400 - X10*3/uL Mean Platelet Volume 11.7 9.4-12.4 - fL Neutrophils Percent Auto 51.2 45-73 - % Imm Gran Pct Auto 0.3 0.0-0.4 - % Lymphocytes Percent Auto 32.3 20-40 - % Monocytes Percent Auto 12.5 H 2-11 - % Eosinophils Percent Auto 2.9 0-4 - % Basophils Percent Auto 0.8 0-2 - % NRBC Pct Auto 0.0 0.0-0.2 - /100WBC Neutrophils Absolute Auto 2.0 2.0-8.3 - x10* 3/uL Imm Gran Abs Auto 0.01 0.00-0.03 - X10*3/uL Lymphocytes Absolute Auto 1.2 1.2-4.9 - X10* 3/uL Monocytes Absolute Auto 0.5 0.1-1.2 - X10*3/ uL Eosinophils Absolute Auto 0.1 0.0-0.4 - X10* 3/uL Basophils Absolute Auto 0.0 0.0-0.2 - X10*3/ uL NRBC Abs Auto 0.000 0.0-0.012 - X10*3/uL L ab:Comprehensive [place]. Panel Fast (Order Date - 04/22/2024) (Collection Date - 04/22/2024) Value Reference Range Sodium 142 135-145 - mmol/L Bilirubin Total 0.4 0.0-1.0 - mg/dL Aspartate Amino Transferase 24 5-37 - U/L Alanine Aminotransferase 21 0-40 - U/L Total Protein 6.9 6.5-8.0 - g/dL Albumin Level 3.7 3.5-5.0 - g/dL Alkaline Phosphatase 78 39-117 - U/L Potassium 4.1 3.3-5.1 - mmol/L Chloride 105 96-108 - mmol/L Carbon Dioxide 29 22-29 - mmol/L Anion Gap 12 12-20 - Blood Urea Nitrogen 13 9-16 - mg/dL Creatinine 0.74 0.5-1.4 - mg/dL Estimated Glomerular Filt Rate > 60 - Glucose Fasting 94 60-99 - mg/dL Calcium 9.3 8.4-10.2 - mg/dL * Examination: G eneral Examination: GENERAL APPEARANCE: w ell developed, well nourished, in no acute distress. HEAD: n ormocephalic, atraumatic. EYES: p upils equal, round, reactive to light and accommodation, sclera non-icteric. EARS: n ormal. ORAL CAVITY: m ucosa moist. THROAT: c lear. NECK/THYROID: n shanice supple, full range of motion, no cervical lymphadenopathy, no bruits. SKIN: w arm and dry, no suspicious lesions. HEART: r egular rate and rhythm, S1, S2 normal, no murmurs.? LUNGS: c lear to auscultation bilaterally. ABDOMEN: s oft, nontender, nondistended, bowel sounds present, normal, no organomegaly , no masses palpable. RECTAL EXAM: n ormal tone, no external hemorrhoids, no masses palpable, prostate normal, stool guaiac negative. MALE GENITOURINARY: n o testicular mass , testes descended bilaterally. EXTREMITIES: n o clubbing, cyanosis, or edema. NEUROLOGIC: n onfocal, motor strength normal upper and lower extremities, sensory exam intact. Assessment: * Assessment: 1. A nnual physical exam - Z00.00 (Primary) 2 . C oronary artery disease involving lower sioux coronary artery of lower si[place] heart without angina pectoris - I25.10 3 . N eutropenia, unspecified type - D70.9 4 . E ssential hypertension - I10 5 . P aroxysmal A-fib - I48.0?6. P rostatism - N40.0 7 . C olon cancer screening - Z12.11 8 . D epression screening - Z13.31 Plan: * Treatment: 2. C oronary artery disease involving lower si[place] coronary artery of lower [place] heart without angina pectoris Continue Lipitor Tablet, 40 MG, 1 tablet, Orally, Once a day. L AB: Complete Blood Count Auto Diff Notes: not having any symptoms, will continue current regiment 3. N eutropenia, unspecified type L AB: Complete Blood Count Auto Diff Notes: stable, will continue to monitor 4. E ssential hypertension Continue amLODIPine Besylate Tablet, 5 MG, 1 tablet, Orally, Once a day; C ontinue Metoprolol Succinate ER Tablet Extended Release 24 Hour, 50 MG, 1 tablet, Orally, Once a day. Notes: well controlled, will continue current regiement 5. P aroxysmal A-fib Continue Eliquis Tablet, 5 MG, as directed, Orally, bid. Notes: on anticoag 6. P rostatism Continue Tamsulosin HCl Capsule, 0.4 MG, TAKE 1 CAPSULE BY MOUTH EVERY DAY. Notes: stable, will continue current regiment 7. C olon cancer screening L AB: Occult Blood, Stool, Guaiac N egative Value Reference Range O ccult Blood, Stool, Guaiac Neg Notes: guaiac negative??8.?Depression screening? Notes: negative screen?? * Procedure Codes: 8 2270 TEST FOR BLOOD, FECES * * Sign off status: Completed true * Provider: Eric Castillo MD Date: 06/29/2023 Generated for Bhupendra holguin/Khushbu/Oh on: 06/27/2024 01:27 PM EST History and Physical Notes * HPI (History of Present Illness) Category Sub-Category Detail Notes Category Not es Symptom(s) patint is a 78 yo male here for annual visit with review of recent labs and follow up of chronic issues Depression Screening PHQ-9 Little inte rest or pleasure in doing things: Not at all Feeling down, depressed, or hopeless: No t at all Trouble falling or staying asleep, or sl eeping too much: Not at all Feeling tired or having little energy: N ot at all Poor appetite or overeating: Not at all Feeling bad about yourself o r that you are a failure, or have let yourself or your family down: Not at all Trouble concentrating on thi ngs, such as reading the newspaper or watching television: Not at all Moving or speaking so slowly that other people could have noticed; or the opposite, being so fidgety or restless that you have been moving around a lot more than usual: Not at all Thoughts that you would be b radha off or of hurting yourself in some way: Not at all Total Score: 0 Interpretation and Intervention Depression Scree marshall Findings: Negative Follow-Up for Depression: : review of PH Q-9 found negative result, no follow-up needed SDOH Questions SDOH Questions In the past year have you been worried about losing housing?: No In the past year have you or any family members you live with been unable to get any of the following when it was really needed? Check all that apply:: None Fall Risk History Have you had any falls with injury i n the past year?: No Have you had two or more falls in the year?: No Communication Needs Communication Needs Does the patient have a hearing impairment: No Does the patient have a vision impairmen t?: Yes If yes, what is the vision impairment?: Glasses Does the patient have a cognition impair ment?: No Examination Category Sub-Category Detail Notes Category Not es General Examination GENERAL APPEARANCE: well dev eloped, well nourished, in no acute distress HEAD: normocephalic, atrau matic EYES: pupils equal, round, reactive to light and accommodation, sclera non-icteric EARS: normal THROAT: clear NECK/THYROID: neck supple, full ra nge of motion, no cervical lymphadenopathy, no bruits HEART: regular rate and rhy thm, S1, S2 normal, no murmurs LUNGS: clear to auscultatio n bilaterally ABDOMEN: soft, nontender, non distended, bowel sounds present, normal, no organomegaly , no masses palpable NEUROLOGIC: nonfocal, motor stre ngth normal upper and lower extremities, sensory exam intact SKIN: warm and dry, no victor manuel picious lesions EXTREMITIES: no clubbing, cyanosi s, or edema MALE GENITOURINARY: no testicular mass , testes descended bilaterally RECTAL EXAM: normal tone, no exte rnal hemorrhoids, no masses palpable, prostate normal, stool guaiac negative ORAL CAVITY: mucosa moist
--- OUTSIDE RECORDS SUMMARY | 2024-09-05 04:30 | XMS_ITS ---
Author Organization Jorge Castillo MD Address [address] [place] [phone] Care Team Providers Care Stockroom Attendant Name Role Phone Jorge Castillo Primary Care Provider REASON FOR VISIT HCC Risk Codes 5/12 NOTED Encounters Encounter Location Date Provider Diagnosis Jorge Castillo MD [address] [facility] [address] [place] [phone] 09/05/2024 Jorge Castillo Plan Of Treatment Next Appt Details Provider Name:Jorge Paige ier, 05/05/2025 09:30:00 AM, [address], [address] [place] [address], [phone], Progress Notes * ABNER LOWE:1945 ([age] yo M)Acc No.[id number]:09/05/2024 Patient: SMITH JOHNSON :1945 A ge:78 Y S ex:Male Address:[address] [place], [address] * true * Date: Generated for Bhupendra holguin/Khushbu/Oh on: 1 06/27/2024 01:27 PM EST
--- OUTSIDE RECORDS SUMMARY | 2024-10-31 05:00 | XMS_ITS ---
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 A-Fib Medications Medication SIG (Take, Route, Frequency, Duration) Notes Start Date End Date Status Colchicine 0.6 MG 1 tablet Orally Once a day for 30 day(s) Not-Taking Lipitor 40 MG 1 tablet Orally Once a day Active Metoprolol Succinate ER 50 MG 1 tablet Orally Once a day Active amLODIPine Besylate 5 MG 1 tablet Orally Once a day Active Tamsulosin HCl 0.4 MG TAKE 1 CAPSULE BY MOUTH EVERY DAY for 30 Active Eliquis 5 MG as directed Orally bid Active Nystatin 700949 UNIT/GM 1 application Ex ternally Twice a day for 10 days 03/22/2021 Not-Taki ng Colcrys 0.6 MG 1 tablet Orally twic e a day for 10 Not-Taking Vital Signs Blood pressure systolic 132 mm Hg 11/01/19 25 Blood pressure diastolic 60 mm Hg 025 Height 68 in 10/31/2024 Weight 154 lbs 10/31/2024 BMI 23.41 kg/m2 10/31/2024 Encounters Encounter Location Date Provider Diagnosis Jorge Castillo MD [address] [place], [place] [phone] 10/31/2024 Jorge Castillo Paroxysmal A-fib I48.0 and Essential hypertension I10 Assessments Encounter Date Diagnosis (ICD Code) Assessment Notes Treatment Notes Treatment Clinical Notes Section Notes 10/31/2024 Paroxysmal A-fib (ICD-10 - I48.0) doing well. no problems 10/31/2024 Essential hypertension (ICD-10 - I10) Plan Of Treatment Medication Medication Name Sig Start Date Stop Date Notes Metoprolol Succinate ER 50 MG 1 tablet Orally Once a day amLODIPine Besylate 5 MG 1 tablet Orally Once a day Eliquis 5 MG as directed Orally bid Treatment Notes Assessment Notes Paroxysmal A-fib doing well. no probl ems Next Appt Details Provider Name:Jorge Paige ier, 05/05/2025 09:30:00 AM, [address] [place] [address] Drive, [address], [place], [place], [phone], Progress Notes * LIU LOWEALEXANDROB:1945 ([age] yo M)Acc No.[id number]:10/31/2024 Progress Notes Patient: SMITH JOHNSON Provider: Eric Castillo MD :1945 A ge:78 Y S ex:Male Date:10/31/2024 [facility] Subjective: * Chief Complaints: * [facility] Risk Codes: I48.0 Paroxy. A-Fib * HPI: S ymptom(s): patient is a 78 yo male here for 6 months follow up visit/ had cold 3 times during the winter. last month may have been pollen. * ROS: G eneral/Constitutional: Denies C hills. D enies F atigue. D enies F ever. D enies H eadache. E NT: Denies S ore throat. R espiratory: Denies C ough. D enies S hortness of breath at rest. C ardiovascular: Denies C hest pain at rest. D enies C hest pain with exertion. D enies D izziness. D enies P alpitations. D enies S hortness of breath. G astrointestinal: Denies D iarrhea. D enies N ausea. * Medical History: * Surgical History: * Hospitalization/Major Diagno stic Procedure: * Family History: F ather: 89 yrs, diagnosed with Cancer. M other: 69 yrs. 1 brother(s) , 2 sister(s) . 2 son(s) . . Denies mental health/substance abuse family history, No pertinent family medical history, No pertinent family medical history. * Medications: T akingLipitor 40 MG Tablet 1 tablet Orally Once a day amLODIPine Besylate 5 MG Tablet 1 tablet Orally Once a day Eliquis 5 MG Tablet as directed Orally bid Metoprolol Succinate ER 50 MG Tablet Extended Release 24 Hour 1 tablet Orally Once a day Tamsulosin HCl 0.4 MG Capsule TAKE 1 CAPSULE BY MOUTH EVERY DAY Taking Lipitor 40 MG Tablet 1 tablet Orally Once a day Taking amLODIPine Besylate 5 MG Tablet 1 tablet Orally Once a day Taking Eliquis 5 MG Tablet as directed Orally bid Taking Metoprolol Succinate ER 50 MG Tablet Extended Release 24 Hour 1 tablet Orally Once a day Taking Tamsulosin HCl 0.4 MG Capsule TAKE 1 CAPSULE BY MOUTH EVERY DAY Not-Taking/PRNNystatin 413848 UNIT/GM Cream 1 application Externally Twice a day Colcrys 0.6 MG Tablet 1 tablet Orally twice a day Colchicine 0.6 MG Tablet 1 tablet Orally Once a day Medication List reviewed and reconciled with the patientNot-Taking/PRN Nystatin 149920 UNIT/GM Cream 1 application Externally Twice a day Not-Taking/PRN Colcrys 0.6 MG Tablet 1 tablet Orally twice a day Not- Taking/PRN Colchicine 0.6 MG Tablet 1 tablet Orally Once a day Medication List reviewed and reconciled with the patient * Allergies: p enicillin: rashLipitor: constipationCrestor: myalgiayes[Allergies Verified] Objective: * Vitals: H t: 68, Wt: 154, BMI:23.41, BP:132/60, Wt-k.85. * Examination: G eneral Examination: GENERAL APPEARANCE: w ell developed, well nourished. HEAD: n ormocephalic. EYES: e xtraocular movement full and smooth. SKIN: g ood turgor. HEART: n o murmurs, rubs, gallops, regular rate and rhythm.? LUNGS: n o wheezes, rales, rhonchi, good air movement, clear to auscultation bilaterally. Assessment: * Assessment: 1. P aroxysmal A-fib - I48.0 (Primary) 2 . E ssential hypertension - I10? Plan: * Treatment: 2. E ssential hypertension Continue amLODIPine Besylate Tablet, 5 MG, 1 tablet, Orally, Once a day. * Procedure Codes: * * Sign off status: Completed true * Provider: Eric Castillo MD Date: 0 10/31/2024 Generated for Bhupendra holguin/Khushbu/Pedro Luissmitting on: 1 06/27/2024 01:26 PM EST History and Physical Notes * HPI (History of Present Illness) Category Sub-Category Detail Notes Category Not es Symptom(s) patient is a 78 yo male here for 6 months follow up visit/ had cold 3 times during the winter. last month may have been pollen Examination Category Sub-Category Detail Notes Category Not es General Examination GENERAL APPEARANCE: well developed , well nourished HEAD: normocephalic EYES: extraocular movement full and smooth HEART: no murmurs, rubs, ga llops, regular rate and rhythm LUNGS: no wheezes, rales, r honchi, good air movement, clear to auscultation bilaterally SKIN: good turgor
--- OUTSIDE RECORDS SUMMARY | 2025-04-27 02:15 | XMS_ITS ---
Author Organization Jorge Castillo MD Address [address] [place], [place] [phone] Care Team Providers Care Environmental Manager Name Role Phone Jorge Castillo Primary Care Provider Results Component Value Reference Range Notes Complete Blood Count Auto Di ff (Not yet reviewed by provider) Interpretation: Performing Lab:[facility], [address] [place] [phone] Notes/Report: White Blood Count 4.7 4.8-10.8 X10*3/uL Red Blood Count 4.21 4.60-5.80 X10*6/uL Hemoglobin 13.0 14.0-18.0 g/dl Hematocrit 39.2 42.0-52.0 % Mean Corpuscular Volume 93.1 80.0-98.0 fL Mean Corpuscular Hemoglobin 30.9 27.0-33.0 pg Mean Corpuscular HGB Conc 33.2 31.0-36.0 g/dl Red Cell Distribution Width 12.1 11.0-16.0 % Platelet Count 198 160-400 X10*3/uL Mean Platelet Volume 11.5 9.4-12.4 fL Neutrophils Percent Auto 54.4 45-73 % Imm Gran Pct Auto 0.2 0.0-0.4 % Lymphocytes Percent Auto 30.7 20-40 % Monocytes Percent Auto 11.5 2-11 % Eosinophils Percent Auto 2.6 0-4 % Basophils Percent Auto 0.6 0-2 % NRBC Pct Auto 0.0 0.0-0.2 /100WBC Neutrophils Absolute Auto 2.6 2.0-8.3 x10*3/u L Imm Gran Abs Auto 0.01 0.00-0.03 X10*3/uL Lymphocytes Absolute Auto 1.4 1.2-4.9 X10*3/u L Monocytes Absolute Auto 0.5 0.1-1.2 X10*3/uL Eosinophils Absolute Auto 0.1 0.0-0.4 X10*3/u L Basophils Absolute Auto 0.0 0.0-0.2 X10*3/uL NRBC Abs Auto 0.000 0.0-0.012 X10*3/uL Lipid Panel (Not yet reviewe d by provider) Interpretation: Performing Lab:[address] [phone] Notes/Report: Triglycerides 55 <150 mg/dL Desirable Triglyceride: less than 150 mg/dL Borderline High Triglyceride 150-199 mg/dL High Triglyceride: 200-499 mg/dL Very High Triglyceride: greater than or equal to 5OO mg/dL Cholesterol 167 <200 mg/dL Desirable Cholesterol: less than 200 mg/dL Borderline High Cholesterol: 200-239 mg/dL High Cholesterol: greater than 239 mg/dL LDL Cholesterol Calculated 96 <100 mg/dL Desirable LDL: less than 100 mg/dL Near Optimal/Above Optimal LDL: 110-129 mg/dL Borderline High LDL: 130-159 mg/dL High LDL: 160-189 mg/dL Very High LDL: greater than or equal to 190 mg/dL HDL Cholesterol 60 >40 mg/dL Desirable HDL: greater than 40 mg/dL Note: This HDL assay may give artificially low results in patients with liver disease. PSA,Total (Free>4and<10) (No t yet reviewed by provider) Interpretation: Performing Lab:[address] [phone] Notes/Report: PSA,Total (Free>4and<10) 2.63 0.00-4.00 ng/mL A Free PSA was not [...] Immunoassay (CMIA) UA ClnCatch+Micro w/rflx Cul t (Not yet reviewed by provider) Interpretation: Performing Lab:[facility], [address] [place] [phone] Notes/Report: Urine, Clean Catch Color Urine Yellow Appearance Urine Clear PH 5.5 5.0-9.0 Glucose Urine UA Negative Negative mg/dL Urine Blood Negative Negative Specific [place] - Urine 1.025 1.005-1.025 Urine Protein Negative Neg-Trace mg/dL Urine Ketones Negative Negative mg/dL Nitrite Urine Negative Negative Leukocyte Esterase Urine Trace Negative RBC Urine 0-2 0-2 /HPF WBC Urine 0-5 0-5 /HPF Squamous Epithelial Cell Urine 0-2 0-2 /HPF Bacteria Urine None Seen None Seen Hyaline Casts Urine 0-2 0-2 /LPF REASON FOR VISIT FASTING LABS Encounters Encounter Location Date Provider Diagnosis Jorge Castillo MD [address] [place] [address] [address] [place], [place] [phone] 04/27/2025 Jorge Castillo Blood tests for routine general physical examination Z00.00 ; Prostatism N40.0 ; Neutropenia, unspecified type D70.9 and Essential hypertension I10 Assessments Encounter Date Diagnosis (ICD Code) Assessment Notes Treatment Notes Treatment Clinical Notes Section Notes 04/27/2025 Blood tests for routine general physical examination (ICD-10 - Z00.00) 04/27/2025 Prostatism (ICD-10 - N40.0) 04/27/2025 Neutropenia, unspecified type (ICD-10 - D70.9) 04/27/2025 Essential hypertension (ICD-10 - I10) Plan Of Treatment Pending Test Test Name Order Date Complete Blood Count Auto Diff 5 Comprehensive [place]. Panel Fast 5 Lipid Panel 04/27/2025 PSA,Total (Free>4and<10) 04/27/2025 UA ClnCatch+Micro w/rflx Cult 04/27/2025 Next Appt Details Provider Name:Jorge Paige ier, 05/05/2025 09:30:00 AM, [address], [address], [place], [place], [phone], Progress Notes * LIU LOWEALEXANDROB:1945 ([age] yo M)Acc No.[id number]:04/27/2025 Progress Note Patient: SMITH JOHNSON Provider: Eric Castillo MD :1945 A ge:79 Y S ex:Male Date:04/27/2025 Address:[address] [place], [place] [phone] Subjective: * Chief Complaints: * 1 . FASTING LABS. * Medical History: Objective: * Vitals: Assessment: * Assessment: 1. B lood tests for routine general physical examination - Z00.00 (Primary) 2 .?Prostatism - N40.0 3 . N eutropenia, unspecified type - D70.9 ?4. E ssential hypertension - I10 Plan: * Treatment: 2. P rostatism L AB: Complete Blood Count Auto Diff (Collection Date & Time - 04/27/2025 07:15 AM) L AB: Comprehensive [place]. Panel Fast L AB: Lipid Panel (Collection Date & Time - 04/27/2025 07:15 AM) L AB: PSA,Total (Free>4and<10) (Collection Date & Time - 04/27/2025 07:15 AM) L AB: UA ClnCatch+Micro w/rflx Cult (Collection Date & Time - 04/27/2025 07:15 AM) 3. N eutropenia, unspecified type L AB: Complete Blood Count Auto Diff (Collection Date & Time - 04/27/2025 07:15 AM) L AB: Comprehensive [place]. Panel Fast L AB: Lipid Panel (Collection Date & Time - 04/27/2025 07:15 AM) L AB: PSA,Total (Free>4and<10) (Collection Date & Time - 04/27/2025 07:15 AM) L AB: UA ClnCatch+Micro w/rflx Cult (Collection Date & Time - 04/27/2025 07:15 AM) 4. E ssential hypertension L AB: Complete Blood Count Auto Diff (Collection Date & Time - 04/27/2025 07:15 AM) L AB: Comprehensive [place]. Panel Fast L AB: Lipid Panel (Collection Date & Time - 04/27/2025 07:15 AM) L AB: PSA,Total (Free>4and<10) (Collection Date & Time - 04/27/2025 07:15 AM) L AB: UA ClnCatch+Micro w/rflx Cult (Collection Date & Time - 04/27/2025 07:15 AM) * * The named appointment provid er may or may not be the originator of this progress note, and it is not deemed complete until electronically signed by the appointment provider. Sign off status: Pending * Provider: Eric Castillo MD Date: 06/27/2024 Generated for Bhupendra holguin/Khushbu/Teeitting on: 06/27/2024 01:26 PM EST
[2025-04-27 11:03] LABS: MANUAL DIFF FLAG NO
[2025-04-27 11:40] LABS: Hematocrit 39.2 % (42.0-52.0); Hemoglobin 13.0 g/dl (14.0-18.0); Imm Gran Abs Auto 0.01 X10*3/uL (0.00-0.03); Imm Gran Pct Auto 0.2 % (0.0-0.4); Lymphocytes Absolute Auto 1.4 X10*3/uL (1.2-4.9); Mean Corpuscular HGB Conc 33.2 g/dl (31.0-36.0); Mean Corpuscular Hemoglobin 30.9 pg (27.0-33.0); Mean Corpuscular Volume 93.1 fL (80.0-98.0); NRBC Abs Auto 0.000 X10*3/uL (0.0-0.012); NRBC Pct Auto 0.0 /100WBC (0.0-0.2); Platelet Count 198 X10*3/uL (160-400); Red Blood Count 4.21 X10*6/uL (4.60-5.80); White Blood Count 4.7 X10*3/uL (4.8-10.8)
[2025-04-27 11:45] LABS: Appearance Urine Clear; Glucose Urine UA Negative (Negative); PH 5.5 (5.0-9.0); Specific Gravity - Urine 1.025 (1.005-1.025); UMIC TRIGGER UACC YES
[2025-04-27 11:56] LABS: Alanine Aminotransferase 22 U/L (0-40); Albumin Level 4.1 g/dL (3.5-5.0); Alkaline Phosphatase 75 U/L (39-117); Anion Gap 11 (12-20); Aspartate Amino Transferase 23 U/L (5-37); Blood Urea Nitrogen 18 mg/dL (9-16); Calcium 9.0 mg/dL (8.4-10.2); Carbon Dioxide 28 mmol/L (22-29); Chloride 105 mmol/L (96-108); Cholesterol 167 mg/dL (<200); Estimated Glomerular Filt Rate > 60; HDL Cholesterol 60 mg/dL (>40); Potassium 4.4 mmol/L (3.3-5.1); Sodium 140 mmol/L (135-145); Total Protein 7.0 g/dL (6.5-8.0); Triglycerides 55 mg/dL (<150)
[2025-04-27 12:10] LABS: PSA,Total (Free>4and<10) 2.63 ng/mL (0.00-4.00)
--- OUTSIDE RECORDS SUMMARY | 2025-04-27 13:26 | XMS_ITS | Patient Health Record ---
Author Organization Jorge Castillo MD Address [address] [place], [place] [phone] Care Team Providers Care Bead Stringer Name Role Phone Jorge Castillo Primary Care Provider Allergies Allergen (clinical drug ingredient) Drug/Non Drug Allergy documented on EMR Reaction Allergy Type Onset Date Status atorvastatin Lipitor constipation Drug Allergy A ctive rosuvastatin Crestor myalgia Drug Allergy Acti ve penicillin (uncoded) rash Allergy Active Results Component Value Reference Range Notes Complete Blood Count Auto Di ff (Not yet reviewed by provider) Interpretation: Performing Lab:[facility], [address] [place] [phone] Notes/Report: White Blood Count 4.7 4.8-10.8 X10*3/uL [...] yet reviewe d by provider) Interpretation: Performing Lab:[facility], [address] [place] [phone] Notes/Report: Triglycerides 55 <150 mg/dL Desirable Triglyceride: [...] t yet reviewed by provider) Interpretation: Performing Lab:[facility], [address] [place] [phone] Notes/Report: PSA,Total (Free>4and<10) 2.63 0.00-4.00 ng/mL A [...] (Not yet reviewed by provider) Interpretation: Performing Lab:[address] [phone] Notes/Report: Urine, Clean Catch Color Urine Yellow Appearance Urine Clear PH 5.5 5.0-9.0 Glucose Urine UA Negative Negative mg/dL Urine Blood Negative Negative Specific [place] - Urine 1.025 1.005-1.025 Urine Protein Negative [...] Notes/Report: Negative Occult Blood, Stool, Guaiac Neg Comprehensive Met. Panel Reviewed date:04/27/2025 12:50:49 PM Interpretation: Performing Lab:[facility], [address] [place] [phone] Notes/Report: Sodium 140 135-145 mmol/L Potassium 4.4 3.3-5.1 mmol/L Chloride 105 96-108 mmol/L Carbon Dioxide 28 22-29 mmol/L Anion Gap 11 12-20 Blood Urea Nitrogen 18 9-16 mg/dL Creatinine 0.75 0.5-1.4 mg/dL Estimated Glomerular Filt Rate > 60 Chronic Kidney Disease: Estimated GFR < 60 mL/min/1.73m2 Severe Kidney Disease: Estimated GFR < 15 mL/min/1.73m2 Glucose Random 92 60-115 mg/dL Calcium 9.0 8.4-10.2 mg/dL Bilirubin Total 0.5 0.0-1.0 mg/dL Aspartate Amino Transferase 23 5-37 U/L Alanine Aminotransferase 22 0-40 U/L Total Protein 7.0 6.5-8.0 g/dL Albumin Level 4.1 3.5-5.0 g/dL Alkaline Phosphatase 75 39-117 U/L Reason For Referral No Information Medications Medication SIG (Take, Route, Frequency, Duration) Notes Start Date End Date Status Eliquis 5 MG as directed Orally bid Active Nystatin 201115 UNIT/GM 1 application Ex ternally Twice a [...] nts Flu Vaccine IM Intramuscular 04/22/2012 Administered [employer] PPSV23 (Pnemovax) IM Intramuscular 09/13/2012 Administered Flu Vaccine IM Intramuscular 03/27/2013 Administered [facility] Flu Vaccine Unknown 05/01/2014 Administered [employer] Flu Vaccine IM Intramuscular 04/03/2015 Administered pt wa s given the high dose Flu at [facility] in [place] Prevnar 13 IM Intramuscular 04/03/2015 Administered pt rec ieved the vaccine at [facility] in [place] Flu Vaccine IM Intramuscular 04/02/2016 Administered [employer] PPSV23 (Pnemovax) Unknown 04/02/2016 Administered [facility] Flu Vaccine IM Intramuscular 04/05/2017 Administered pt wa s given the vaccine at [facility] in [place]. Influenza High Dose IM Intramuscular 03/28/2018 Administered pt was given th e vaccine at [facility] in [place]. Influenza High Dose IM Intramuscular 03/22/2019 Administered pt was given th e vaccine at [facility] in [facility]. Influenza High Dose IM Intramuscular 02/28/2020 Administered Covid Vaccine Unknown 08/28/2020 Administered Pfizer Covid Vaccine Unknown 09/18/2020 Administered Influenza High Dose Unknown 03/04/2021 Administered [employer] SARS-COV-2 Pfizer Unknown 04/08/2021 Administered Influenza High Dose Unknown 03/24/2022 Administered PPSV23 (Pnemovax) IM Intramuscular 10/23/2022 Administered Social History Tobacco Use: Social History Observation [...] Problem Status W/U Status Risk Notes Problem 66935979 Prostatism (N40.0) Active confirmed Problem 93407611 Anxiety (F41.9) Active confirmed Problem 18523089 Essential hypertension (I10) Active confirmed Problem 409388561 History of coronary artery disease (Z86.79) Active confirmed Problem 537554694 Cervical disc disease (M50.90) Active confirmed Problem Atherosclerotic heart disease of [place] coronary artery without angina pectoris ([id number]) Coronary artery disease involving [place] coronary artery of [place] heart without angina pectoris (I25.10) Active confirmed Problem 835182712 Neutropenia, unspecified type (D70.9) Active confirmed Problem [id number] Sciatica of right side (M54.31) Active confirmed Problem 44351801 Hydrocele, unspecified hydrocele type (N43.3) Active confirmed Problem 751760575 Arthritis of knee (M17.10) Active confirmed Problem 755004961 Paroxysmal A-fib (I48.0) Active confirmed Problem 58369681 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 Problem 502468832 Age-related incipient cataract of both eyes (H25.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) Active confirmed Problem 258853748 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) Active confirmed Problem 635946185 Age-related incipient cataract, unspecified laterality (H25.099) Active confirmed Problem 089134759 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 Problem 808748258 Nontraumatic tear of left rotator cuff, unspecified tear extent (M75.102) Active confirmed Vital Signs Blood pressure diastolic 60 mm Hg 10/31/2024 Height 68 in 10/31/2024 Blood pressure systolic 132 mm Hg 10/31/2024 Weight 154 lbs 10/31/2024 BMI 23.41 kg/m2 10/31/2024 Encounters Encounter Location Date Provider Diagnosis Jorge Castillo MD [address] [place] [phone] 04/27/2025 Jorge Castillo Blood tests for routine general physical examination Z00.00 ; Prostatism N40.0 ; Neutropenia, unspecified type D70.9 and Essential hypertension I10 Jorge Castillo MD [address] [place] [address] Drive [address] [place] [phone] 04/29/2024 Jorge Castillo Coronary artery disease involving [place] coronary artery of [place] heart without angina pectoris I25.10 ; Annual physical exam Z00.00 ; Neutropenia, unspecified type D70.9 ; Essential hypertension I10 ; Paroxysmal A-fib I48.0 ; Prostatism N40.0 ; Colon cancer screening Z12.11 and Depression screening Z13.31 Jorge Castillo MD [address] [place] [phone] 10/31/2024 Jorge Castillo Paroxysmal A-fib I48.0 and Essential hypertension I10 Jorge Castillo MD [address] [place] [address] [id number] 09/05/2024 Jorge Castillo Assessments Encounter Date Diagnosis (ICD Code) Assessment Notes Treatment Notes Treatment Clinical Notes Section Notes 04/27/2025 Blood tests for routine general physical examination (ICD-10 - Z00.00) 04/29/2024 Coronary artery disease involving [place] coronary artery of [place] heart without angina pectoris (ICD-10 - I25.10) not having any symptoms, will continue current regiment 04/29/2024 Annual physical exam (ICD-10 - Z00.00) labs reviewed and discussed with patient 10/31/2024 Paroxysmal A-fib (ICD-10 - I48.0) doing well. no problems 04/27/2025 Prostatism (ICD-10 - N40.0) 04/29/2024 Neutropenia, unspecified type (ICD-10 - D70.9) stable, will continue to monitor 10/31/2024 Essential hypertension (ICD-10 - I10) 04/27/2025 Neutropenia, unspecified type (ICD-10 - D70.9) 04/29/2024 Essential hypertension (ICD-10 - I10) well controlled, will continue current regiement 04/27/2025 Essential hypertension (ICD-10 - I10) 04/29/2024 Paroxysmal A-fib (ICD-10 - I48.0) on anticoag 04/29/2024 Prostatism (ICD-10 - N40.0) stable, will continue current regiment 04/29/2024 Colon cancer screening (ICD-10 - Z12.11) guaiac negative 04/29/2024 Depression screening (ICD-10 - Z13.31) negative screen Plan Of Treatment Pending Test Test Name Order Date Electrocardiogram (EKG) 10/01/2018 Electrocardiogram (EKG) 07/22/2013 Electrocardiogram (EKG) 08/17/2015 Electrocardiogram (EKG) 09/24/2017 MRI CERVICAL SPINE NO CONTRAST 4 MRI SHOULDER LT NO CONTRAST 01/22/2024 Complete Blood Count Auto Diff 5 Comprehensive [place]. Panel Fast 5 Lipid Panel 04/27/2025 PSA,Total (Free>4and<10) 04/27/2025 UA ClnCatch+Micro w/rflx Cult 04/27/2025 Next Appt Details Provider Name:Jorge hancock, 05/05/2025 09:30:00 AM, [address] [place] [address], [address], [place], [place], [phone], Insurance Providers Payer Name Payer Address Payer Phone Subscriber Number Group Number Insured Name Patient Relationship to Insured Coverage Start Date Coverage End Date [employer] [address]AN [address] [place]IETT[place]ashaad [place], [place] [phone] [id number] SMITH LOWE Self - patient is the insured Medical (General) History Medical History History ICD Code 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
== END 2025-04-27 11:01 | disposition home or self-care (01) ==
LOC: HO.LNP 11:00
PROVIDERS: Visit Provider Internal Medicine
DX: Z00.00 Encounter for general adult medical examination without abnormal findings (principal); Z12.5 Encounter for screening for malignant neoplasm of prostate; I10 Essential (primary) hypertension; N40.0 Benign prostatic hyperplasia without lower urinary tract symptoms; D70.9 Neutropenia, unspecified
CPT/HCPCS: 80053; 80061; 81001; 84153; 85025